=== PATIENT | male | born 1945 | race Hispanic/Latino ===

== ENCOUNTER 2017-05-02 12:50 | Inpatient (IN) | payer MEDICARE, MEDICAID ==
[2017-05-02 14:18] LABS: BASO # 0.02 K/mm3 (0.0-2.0); BASO % 0.4 % (0.0-3.0); EOS # 0.1 (0.0-0.7); EOS % 1.8 % (1.5-5.0); GRAN # 3.24 (1.4-6.5); GRAN % 72.8 % (50.0-68.0); HEMOGLOBIN 9.6 g/dL (14.0-18.0); LYMPH # 0.7 (1.2-3.4); LYMPH % 15.1 % (22.0-35.0); MEAN CELL VOLUME 95.6 fl (80.0-105.0); MEAN CORPUSCULAR HEMOGLOBIN 29.9 pg (25.0-35.0); MEAN CORPUSCULAR HGB CONC 31.3 g/dl (31.0-37.0); MONO # 0.4 (0.1-0.6); MONO % 9.9 % (1.0-6.0); PROTHROMBIN TIME 13.4 SECONDS (9.4-12.5); RBC 3.21 10^6/uL (3.5-6.1); RED CELL DISTRIBUTION WIDTH 14.9 % (11.5-14.5); WHITE BLOOD COUNT 4.5 10^3/ul (4.5-11.0)
[2017-05-02 14:19] LABS: INR 1.16 (0.93-1.08)
[2017-05-02 14:23] LABS: ALB/GLOB RATIO 1.4 (1.1-1.8); ALBUMIN 3.7 g/dL (3.0-4.8); CALCIUM 9.1 mg/dL (8.4-10.5)
--- NOTE | 2017-05-02 14:32 | ED PDOC ---
Arrival/HPI - General Chief Complaint: Abdominal Pain Time Seen by Provider: 05/02/17 13:26 Historian: Patient - History of Present Illness Narrative History of Present Illness (Text): 05/02/17 14:29 Patient is a 71 yo male with past medical history of ESRD on dialysis M, W, F, presents to Emergency Department complaining of left lower quadrant abdominal pain since awakening this AM. Patient states he at [place] last night and has had prior history of diverticulitis. States these symptoms similar to past episodes. He denies any vomiting or diarrhea. He denies any cough or chest pain or shortness of breath. Denies any bloody urine or stool. Denies any pain radiating to back. Denies dysuria or frequency. Past Medical History - Infectious Disease Hx of Infectious Diseases: None - Renal Hx Dialysis: Yes ([facility]) - Musculoskeletal/Rheumatological Other/Comment: L leg blood clot. riley filter - Gastrointestinal Hx Diverticulitis: Yes - Psychiatric Hx Substance Use: No - Surgical History Hx Cholecystectomy: Yes Other/Comment: prostate cancer. riley filter. L av shunt - Anesthesia Hx Anesthesia Reactions: No Hx Malignant Hyperthermia: No Family/Social History Family/Social History: Unknown Family HX Smoking Status: Never Smoked Hx Alcohol Use: No Hx Substance Use: No Allergies/Home Meds Allergies/Adverse Reactions: Allergies No Known Allergies Allergy (Verified 05/02/17 13:19) Home Medications: Home Meds Medication Instructions Recorded Confirmed ALPRAZolam [Xanax] 0.25 mg PO TID PRN 05/02/17 05/02/17 Atorvastatin [Lipitor] 10 mg PO DAILY 05/02/17 05/02/17 Review of Systems - Review of Systems Constitutional: Fatigue Eyes: absent: Vision Changes Respiratory: absent: SOB Cardiovascular: absent: Chest Pain Gastrointestinal: Abdominal Pain, Appetite Changes. absent: Diarrhea, Vomiting , Hematochezia, Hematemesis Genitourinary Male: absent: Dysuria, Frequency, Hematuria Musculoskeletal: absent: Back Pain Skin: absent: Rash Neurological: absent: Headache, Dizziness Endocrine: absent: Polyuria Physical Exam Vital Signs Reviewed: Yes Vital Signs Temp Pulse Resp BP Pulse Ox 05/02/17 17:37 87 18 145/78 97 05/02/17 12:52 99.2 F 97 H 18 121/66 96 Temperature: Afebrile Appearance: Positive for: Uncomfortable Pain Distress: Mild Mental Status: Positive for: Alert and Oriented X 3 - Systems Exam Head: Present: Atraumatic Pupils: Present: PERRL Extroacular Muscles: Present: EOMI Mouth: Present: Moist Mucous Membranes Pharnyx: No: ERYTHEMA Nose (Internal): Present: Normal Inspection Neck: Present: Normal Range of Motion. No: Meningeal Signs Respiratory/Chest: Present: Clear to Auscultation. No: Respiratory Distress Cardiovascular: Present: Regular Rate and Rhythm Abdomen: Present: Tenderness. No: Peritoneal Signs, Guarding, McBurney's Point Tender Rectal: No: Gross Blood Breast/Axillary: No: Erythema Back: No: CVA Tenderness Upper Extremity: No: Cyanosis Lower Extremity: No: Edema Neurological: Present: Motor Func Grossly Intact, Normal Sensory Function Skin: Present: Warm Psychiatric: Present: Alert, Normal Insight, Normal Concentration Medical Decision Making ED Course and Treatment: 05/02/17 15:44 Patient on exam with focal llq pain. CV stable. Afebrile. Patient with prior history of diverticulitis, ct ordered. PROCEDURE: CT Abdomen and Pelvis without intravenous contrast Dictator : Abby Wren MD Report Date : 05/02/2017 15:04:55 IMPRESSION: 1. Acute short segment colonic diverticulitis involving the distal descending colon. No perforation, abscess or drainable fluid collection. Follow-up CT scan after medical management is recommended to ensure complete resolution and exclude underlying mass. 2. Statement of prior granulomatous disease in the liver and spleen. 3. Small pericardial effusion. 05/02/17 19:06 CT findings reviewed with patient. He requests Dr. Thomason to be his PMD. Case d/w Dr. Guevara covering for Dr. Thomason, accepts admission to his service. IV antibiotics initiated. - Lab Interpretations Lab Results: 05/02/17 14:02 05/02/17 14:02 Lab Results 05/02/17 14:02: Sodium 138, Potassium 4.7, Chloride 97 L, Carbon Dioxide 29, Anion Gap 17, BUN 33 H, Creatinine 6.5 H, Est GFR ( Amer) 10, Est GFR ( Non-Af Amer) 8, Random Glucose 141 H, Calcium 9.1, Total Bilirubin 0.8, AST 12 L , ALT 28, Alkaline Phosphatase 76, Total Protein 6.5, Albumin 3.7, Globulin 2.7 , Albumin/Globulin Ratio 1.4 05/02/17 14:02: PT 13.4 H, INR 1.16 H, APTT 28.0 05/02/17 14:02: WBC 4.5, RBC 3.21 L, Hgb 9.6 L, Hct 30.7 L, MCV 95.6, MCH 29.9, MCHC 31.3, RDW 14.9 H, Plt Count 86 L, MPV 11.0, Gran % 72.8 H, Lymph % (Auto) 15.1 L, Ross % (Auto) 9.9 H, Eos % (Auto) 1.8, Baso % (Auto) 0.4, Gran # 3.24, Lymph # 0.7 L, Ross # 0.4, Eos # 0.1, Baso # 0.02 - RAD Interpretation Radiology Orders: 05/02/17 13:32 ABD & PELVIS W/O PO OR IV CONT [CT] Stat - EKG Interpretation EKG Interpretation (Text): 05/02/17 19:08 EKG at 13:48 normal sinus rhythm rate of [address] elevations Interpreted by ED Physician: Yes Type: 12 lead EKG - Medication Orders Current Medication Orders: Hydromorphone HCl (Dilaudid) 0.5 mg IVP Q4H PRN PRN Reason: Pain, moderate (4-7) Dextrose/Sodium Chloride (Dextrose 5%/0.45% Ns 1000 Ml) 1,000 mls @ 40 mls/hr IV .Q24H MARIS Metronidazole (Flagyl) 250 mg in 50 mls @ 100 mls/hr IV Q8 MARIS PRN Reason: Protocol Stop: 05/07/17 22:01 Ceftriaxone Sodium (Rocephin 1 Gram Ivpb) 1 gm in 100 mls @ 100 mls/hr IVPB 1500 MARIS PRN Reason: Protocol Pantoprazole Sodium (Protonix Inj) 40 mg IVP DAILY MARIS Discontinued Medications Ceftriaxone Sodium (Rocephin 1 Gram Ivpb) 1 gm in 100 mls @ 200 mls/hr IVPB ONCE STA PRN Reason: Protocol Stop: 05/02/17 15:39 Last Admin: 05/02/17 15:17 Dose: 200 mls/hr eMAR Start Stop Document 05/02/17 15:17 GMD (Rec: 05/02/17 15:17 [place] [id number] Intravenous Solution Start Date 05/02/17 Start Time 15:17 End Date 05/02/17 End time 15:47 Total Infusion Time 30 Metronidazole (Flagyl) 500 mg in 100 mls @ 100 mls/hr IVPB STAT STA PRN Reason: Protocol Stop: 05/02/17 16:10 Last Admin: 05/02/17 16:27 Dose: 100 mls/hr eMAR Start Stop Document 05/02/17 16:27 GMD (Rec: 05/02/17 16:27 GMD [id number] Intravenous Solution Start Date 05/02/17 Start Time 16:27 End Date 05/02/17 End time 17:27 Total Infusion Time 60 Disposition/Present on Arrival - Present on Arrival Any Indicators Present on Arrival: No History of DVT/PE: No History of Uncontrolled Diabetes: No Urinary Catheter: No History of Decub. Ulcer: No History Surgical Site Infection Following: None - Disposition Have Diagnosis and Disposition been Completed?: Yes Diagnosis: Diverticulitis, Renal failure, Anemia Disposition: HOSPITALIZED Disposition Time: 16:00 Patient Plan: Admission Patient Problems: Current Active Problems Problem Status Onset Anemia Acute Diverticulitis Acute Renal failure Acute Condition: FAIR
--- NOTE | 2017-05-02 15:06 | CT ---
PROCEDURE: CT Abdomen and Pelvis without intravenous contrast HISTORY: Left lower quadrant abdominal pain, hx of diverticulitis COMPARISON: None. TECHNIQUE: T CT scan of the abdomen and pelvis was performed without administration of intravenous contrast. Oral contrast was not administered. Coronal and sagittal reformatted images were obtained. Radiation dose: Total exam DLP = 773.29 mGy-cm. This CT exam was performed using one or more of the following dose reduction techniques: Automated exposure control, adjustment of the mA and/or kV according to patient size, and/or use of iterative reconstruction technique. FINDINGS: LOWER THORAX: There is dependent atelectasis in the lung bases. The heart is normal in size. There is a small pericardial effusion. LIVER: Normal in size. Punctate nonspecific calcifications in the right hepatic lobe. No intrahepatic biliary ductal dilatation. GALLBLADDER AND BILE DUCTS: Surgically absent. PANCREAS: Normal in size without calcifications or ductal dilatation. No gross lesion or ductal dilatation. SPLEEN: There is moderate splenomegaly and punctate calcifications in the spleen. The spleen measures 16 cm in craniocaudad dimension. ADRENALS: No discrete nodule. KIDNEYS AND URETERS: Mildly atrophic kidneys without hydronephrosis or nephrolithiasis. There are 2 simple cysts in the right kidney, the larger in the lower pole measures 1.6 cm. The small bowel loops are normal in caliber. VASCULATURE: No aortic aneurysm. BOWEL: There is extensive colonic diverticulosis. There is segmental moderate mural thickening in the distal descending colon and the left lower quadrant with significant surrounding inflammatory changes. There is no abscess or drainable fluid collection. APPENDIX: Normal appendix. PERITONEUM: No free fluid. No free air. LYMPH NODES: No enlarged lymph nodes. BLADDER: Grossly normal in appearance. REPRODUCTIVE: The prostate gland is normal in size. BONES: No acute fracture. Multilevel degenerative disc disease. Status post left hip replacement. OTHER FINDINGS: None. IMPRESSION: 1. Acute short segment colonic diverticulitis involving the distal descending colon. No perforation, abscess or drainable fluid collection. Follow-up CT scan after medical management is recommended to ensure complete resolution and exclude underlying mass. 2. Statement of prior granulomatous disease in the liver and spleen. 3. Small pericardial effusion.
[2017-05-02] MEDS ORDERED: cefTRIAXone 1 gm 1 GM/100 ML BAG IVPB STA (15:10)
[2017-05-02] MEDS ORDERED: metroNIDAZOLE IV 500 mg/100 ml 500 MG/100 ML BAG IVPB STA (15:11)
[2017-05-02] MEDS ORDERED: HYDROmorphone 0.5 mg/0.5 ml ISec IVP PRN (18:45)
[2017-05-02] MEDS: Dextrose 5%/0.45% NS 1,000 ML IV SCH (19:16)
[2017-05-02 20:53] VITALS: BMI 27.6
[2017-05-02] MEDS: metroNIDAZOLE IV 250mg/50 ml 250 MG/50 ML BAG IV SCH (21:11)
--- NOTE | 2017-05-03 04:50 | HP ---
HISTORY OF PRESENT ILLNESS: The patient is a 71-year-old, who came to the emergency room because of left lower quadrant pain, severe in nature, intermittent, that pain woke him up this morning, complaining of feeling nausea with decreased appetite, but no history of vomiting or diarrhea. No history of fever or chills. No chest pain. No shortness of breath. PAST MEDICAL HISTORY: Significant for, 1. End-stage renal disease, on hemodialysis. 2. History of diverticulosis. 3. Hyperlipidemia. ALLERGIES: HE IS NOT ALLERGIC TO ANY MEDICATIONS. MEDICATIONS AT HOME: He is on atorvastatin 5 mg daily, Xanax 0.25 t.i.d. p.r.n. SOCIAL HISTORY: Denies smoking, drinking alcohol use. REVIEW OF SYSTEMS: Significant for left lower quadrant pain. PHYSICAL EXAMINATION: GENERAL: On examination, he is awake, alert, oriented, and communicative. VITAL SIGNS: He is afebrile, temperature is 99.2, pulse 97, respirations 18, and blood pressure 121/66. LUNGS: Bilateral fair airflow. No rhonchi or crackles. HEART: S1 and S2 audible. ABDOMEN: Soft, nontender. He does have left lower quadrant discomfort. No rebound. No guarding. NEUROLOGICALLY: The patient is awake, alert, oriented, able to communicate. LABORATORY DATA: WBCs 4.5, hemoglobin 9.6, hematocrit 30.7, platelets of 86. PT 13.4, INR 1.16. Chemistry: Sodium 138, potassium 4.7, chloride 97, CO2 of 29, BUN 33, creatinine 6.5, blood sugar was 141. CT scan of the abdomen and pelvis done that shows acute short segment colonic diverticulitis involving distal descending colon. No perforation or abscess noted. Small pericardial effusion. ASSESSMENT: 1. Descending diverticulitis. 2. Hypertension. 3. End-stage renal disease, on hemodialysis. 4. Anxiety disorder. PLAN: We will start the patient on IV fluids and start on IV antibiotics. Analgesic as needed. We will start him on liquid diet, and he will be followed for hemodialysis by a photographic process worker of his choice. Arsh Guevara MD [facility] # [id number]
[2017-05-03] MEDS: metroNIDAZOLE IV 250mg/50 ml 250 MG/50 ML BAG IV SCH ×3 (05:26→22:48)
[2017-05-03] MEDS: cefTRIAXone 1 gm 1 GM/100 ML BAG IVPB SCH (15:35)
[2017-05-03] MEDS: Dextrose 5%/0.45% NS 1,000 ML IV SCH (18:56)
--- NOTE | 2017-05-03 19:35 | CARD ---
APPROVED REPORT EKG Measurement Heart [id number] <Conclusion> Normal sinus rhythm Normal ECG
--- NOTE | 2017-05-03 21:42 | PN ---
DATE: SUBJECTIVE: The patient is 71 years old, seen and examined, doing well. He states his left abdominal pain is much better, but still has discomfort in the left lower quadrant area. Denies any nausea and vomiting. No rectal bleeding. PHYSICAL EXAMINATION: GENERAL: On examination today, he is awake, alert and oriented, able to communicate. VITAL SIGNS: He is afebrile. Pulse 70, respirations 18, blood pressure 130/66. LUNGS: Bilateral good air flow. No rhonchi or crackles. HEART: S1, S2 audible. ABDOMEN: Soft, slight left lower quadrant palpable discomfort. NEUROLOGIC: He is awake, alert, oriented, communicative. Moves all extremities. Ambulatory. LABORATORY DATA: There are no new labs available today. ASSESSMENT: 1. Descending diverticulitis. 2. End-stage renal disease, on hemodialysis. 3. Chronic anemia. 4. Hyperlipidemia. PLAN: Currently, the patient is on low-dose IV fluid. He is getting IV antibiotics. He is on clear liquid diet, and he will be evaluated by GI and . . Arsh Guevara MD
[2017-05-04] MEDS: metroNIDAZOLE IV 250mg/50 ml 250 MG/50 ML BAG IV SCH ×3 (05:31→22:57)
[2017-05-04] MEDS ORDERED: Oxycodone/Acetaminophen 5/325 mg Tab PO PRN (09:06)
--- NOTE | 2017-05-04 09:28 | PN ---
DATE: 05/04/2017 SUBJECTIVE: The patient has no complaint of any chest pain. No shortness of breath. He says he is feeling better. His abdominal pain is improving. PHYSICAL EXAMINATION: VITAL SIGNS: Temperature is 97.9, pulse of 64, blood pressure is 144/76, respirations 20. GENERAL: The patient is lying in bed, flat, comfortable. HEENT: No oral lesion. Anicteric sclerae. Moist mucosa. NECK: No JVD, adenopathy, or thyromegaly. CARDIOVASCULAR: S1 and S2, regular. No murmurs, rubs, or gallops. LUNGS: Clear to auscultation bilaterally. No wheeze, rales, or rhonchi. ABDOMEN: Bowel sounds are positive, soft, nontender and nondistended. EXTREMITIES: No cyanosis, clubbing or edema. CHEST: He has a left IJ PermCath. He has a left arm AV fistula with mild thrill and bruit. LABORATORY DATA: White count of 4.5, hemoglobin 9.6. Creatinine is 6.5. Platelet count is 86. ASSESSMENT: 1. Diverticulitis. 2. End-stage renal disease, on hemodialysis. 3. Chronic anemia. 4. Dyslipidemia. 5. Left arm arteriovenous fistula. 6. Secondary hyperparathyroidism. PLAN: The patient is currently on Rocephin and Flagyl for antibiotics. The patient is on IV Dilaudid for pain. He is receiving aspirin. I will advance the patient's diet to a renal diet. He is going to be on dialysis today. I did speak to dialysis nurse. He is asking to transfer to [place] for his dialysis as he lives in [place] the [place] of [place]. He is currently going to [facility] for his dialysis treatment. He is currently independent. He does drive. He does have 2 children that are involved in his care. Wilmer Thomason MD
[2017-05-04 11:07] LABS: BASO # 0.02 K/mm3 (0.0-2.0); BASO % 0.6 % (0.0-3.0); EOS # 0.1 (0.0-0.7); EOS % 4.5 % (1.5-5.0); GRAN # 1.76 (1.4-6.5); GRAN % 56.8 % (50.0-68.0); HEMOGLOBIN 9.5 g/dL (14.0-18.0); LYMPH % 31.3 % (22.0-35.0); MEAN CELL VOLUME 93.4 fl (80.0-105.0); MEAN CORPUSCULAR HEMOGLOBIN 29.9 pg (25.0-35.0); MEAN PLATELET VOLUME 10.7 fl (7.0-11.0); MONO # 0.2 (0.1-0.6); MONO % 6.8 % (1.0-6.0); RBC 3.18 10^6/uL (3.5-6.1); RED CELL DISTRIBUTION WIDTH 14.5 % (11.5-14.5); WHITE BLOOD COUNT 3.1 10^3/ul (4.5-11.0)
[2017-05-04 11:20] LABS: ALB/GLOB RATIO 1.2 (1.1-1.8); ALBUMIN 3.5 g/dL (3.0-4.8); CALCIUM 9.1 mg/dL (8.4-10.5)
[2017-05-04] MEDS: cefTRIAXone 1 gm 1 GM/100 ML BAG IVPB SCH (15:29)
[2017-05-05] MEDS: metroNIDAZOLE IV 250mg/50 ml 250 MG/50 ML BAG IV SCH ×3 (06:02→23:56)
--- NOTE | 2017-05-05 15:35 | PN ---
DATE: SUBJECTIVE: The patient has no complaints of any chest pain. No shortness of breath. He still complains of left lower quadrant pain at times. He states it hurts mostly when he presses on his abdomen. He states that he is feeling better than when he first came into the hospital. PHYSICAL EXAMINATION: VITAL SIGNS: Temperature is 98.5, pulse of 78, blood pressure is 133/78, and respirations are 18. GENERAL: The patient is lying in bed, flat, comfortable. HEENT: No oral lesion. Anicteric sclerae. Moist mucosa. NECK: No JVD, adenopathy, or thyromegaly. CARDIOVASCULAR: S1 and S2, regular. No murmurs, rubs, or gallops. LUNGS: Clear to auscultation bilaterally. No wheeze, rales, or rhonchi. ABDOMEN: Bowel sounds are positive, soft, nontender and nondistended. EXTREMITIES: No cyanosis, clubbing or edema. LABORATORY DATA: White count of 3.1 and hemoglobin of 9.5. Left arm positive for AVF. ASSESSMENT: 1. Diverticulitis. 2. End-stage renal disease, on hemodialysis. 3. Chronic anemia secondary to kidney disease. 4. Dyslipidemia. 5. Left arteriovenous fistula. 6. Secondary hyperparathyroidism. PLAN: The patient is currently on Flagyl and Rocephin for antibiotics. These will be continued. The patient is on sevelamer with meal for his secondary hyperparathyroidism. The patient is on aspirin. He is on a liquid diet, I will change back renal diet by Dr. Avila because of the abdominal pain. I appreciate his input from GI. He is also going to repeat blood work done. He had dialysis yesterday with more issues. Wilmer Thomason MD
[2017-05-05] MEDS: cefTRIAXone 1 gm 1 GM/100 ML BAG IVPB SCH (15:59)
--- NOTE | 2017-05-05 21:01 | CON ---
DATE: 05/05/2017 GASTROENTEROLOGY CONSULTATION REQUESTING PHYSICIAN: Dr. Ramirez. REASON FOR CONSULTATION: I have been asked to see this 71-year-old male with history of end-stage renal disease who comes to the hospital with 2 days of left-sided abdominal pain. CT scan of the abdomen and pelvis revealed mural thickening with pericolonic inflammation around the distal descending colon consistent with diverticulitis. There is no fluid collection or abscess. Patient states that he has had two prior episodes of diverticulitis, last episode being approximately 1 year ago. PAST MEDICAL HISTORY: Notable for end-stage renal disease, on hemodialysis; diverticulitis; hyperlipidemia. PAST SURGICAL HISTORY: Notable for cholecystectomy. SOCIAL HISTORY: Denies cigarette smoking or alcohol use. FAMILY HISTORY: Noncontributory. REVIEW OF SYSTEMS: The 14-point review of systems is notable for left lower quadrant abdominal pain. MEDICATIONS: At home include atorvastatin 5 mg once a day, Xanax 0.25 mg three times a day as needed. PHYSICAL EXAMINATION: GENERAL: A well-developed male, lying in bed, in no acute distress. VITAL SIGNS: Reveal temperature of 98.5, blood pressure of 133/78, heart rate 78. HEENT: Reveal sclerae to be white. Conjunctivae pink. NECK: Supple. CHEST: Reveal lungs to be clear. HEART: Exam reveals regular rate and rhythm. ABDOMEN: Soft. There is [id number] left mid abdominal tenderness. No rebound, no guarding. EXTREMITIES: Show no edema. He has an AV shunt in his left arm. LABORATORY DATA: Reveal white blood cell count 3.1, hemoglobin 9.5. Chemistries reveal BUN 42, creatinine 8.9. AST 13; ALT, alk phos, total bilirubin are all normal. IMPRESSION: A 71-year-old male with 2 days of left mid abdominal pain with CT scan of the abdomen and pelvis showing diverticulitis. This is his third attack, last one being approximately 1 year ago. He still has some tenderness on physical exam. RECOMMENDATIONS: 1. Continue IV Rocephin and Flagyl. 2. We will downgrade his diet to clear liquid diet. 3. Patient will need an elective colonoscopy in approximately 8 weeks after his diverticulitis cools down. His last colonoscopy was over 10 years ago. Fred Avila MD [facility] # [id number]
[2017-05-06] MEDS: metroNIDAZOLE IV 250mg/50 ml 250 MG/50 ML BAG IV SCH (07:04)
[2017-05-06] MEDS ORDERED: Barium Sulfate Susp 2.1% w/v, 2.0% w/w 450 mL Bottle PO ONE (08:23)
--- NOTE | 2017-05-06 09:30 | PN ---
DATE: 05/06/2017 SUBJECTIVE: The patient has no complaints of any chest pain. No shortness of breath,. No headaches. He says he continues to have left lower quadrant pain when he press up against his belly. He is swallowing liquid diet. PHYSICAL EXAMINATION VITAL SIGNS: Temperature is 97.7, pulse is 78, blood pressure is 135/80, and respirations are 20. GENERAL: The patient is lying in bed, flat, comfortable. HEENT: No oral lesion. Anicteric sclerae. Moist mucosa. NECK: No JVD, adenopathy, or thyromegaly. CARDIOVASCULAR: S1 and S2, regular. No murmurs, rubs, or gallops. LUNGS: Clear to auscultation bilaterally. No wheeze, rales, or rhonchi. ABDOMEN: Bowel sounds are positive, soft, nontender and nondistended. EXTREMITIES: No cyanosis, clubbing or edema. LABORATORY DATA: White count of 3.1, hemoglobin is 9.5 and creatinine is 8.9. ASSESSMENT: 1. Diverticulitis. 2. End-stage renal disease, on hemodialysis. 3. Chronic anemia secondary to chronic kidney disease. 4. Dyslipidemia. 5. Left arteriovenous fistula. 6. Secondary hyperparathyroidism. PLAN: The patient is currently comfortable. He is on Rocephin for antibiotics. He is continuing on Flagyl. The patient is on aspirin daily and he is on Protonix. He is on Renagel for his secondary to hyperparathyroidism. He has been on liquid diet. The patient's white count is normal. Wilmer Thomason MD
[2017-05-06 11:22] LABS: BASO # 0.02 K/mm3 (0.0-2.0); BASO % 0.6 % (0.0-3.0); EOS # 0.2 (0.0-0.7); EOS % 4.4 % (1.5-5.0); GRAN # 1.99 (1.4-6.5); GRAN % 58.2 % (50.0-68.0); HEMOGLOBIN 9.8 g/dL (14.0-18.0); LYMPH # 0.9 (1.2-3.4); LYMPH % 26.9 % (22.0-35.0); MEAN CORPUSCULAR HEMOGLOBIN 29.7 pg (25.0-35.0); MEAN CORPUSCULAR HGB CONC 31.9 g/dl (31.0-37.0); MEAN PLATELET VOLUME 10.3 fl (7.0-11.0); MONO # 0.3 (0.1-0.6); MONO % 9.9 % (1.0-6.0); RBC 3.3 10^6/uL (3.5-6.1); RED CELL DISTRIBUTION WIDTH 14.3 % (11.5-14.5); WHITE BLOOD COUNT 3.4 10^3/ul (4.5-11.0)
[2017-05-06 11:35] LABS: ALB/GLOB RATIO 1.4 (1.1-1.8); ALBUMIN 3.9 g/dL (3.0-4.8); CALCIUM 9.3 mg/dL (8.4-10.5); MAGNESIUM 1.9 mg/dL (1.7-2.2)
[2017-05-06] MEDS: metroNIDAZOLE IV 500 mg/100 ml 500 MG/100 ML BAG IVPB SCH ×2 (15:44→21:08)
[2017-05-06] MEDS: cefTRIAXone 1 gm 1 GM/100 ML BAG IVPB SCH (16:34)
--- NOTE | 2017-05-06 17:02 | PN ---
DATE: 05/06/2017 SUBJECTIVE: The patient was seen in hemodialysis. He states that he feels better. His abdominal pain is less. He denies any nausea, vomiting, fevers, or chills. OBJECTIVE: VITAL SIGNS: Reveal temperature of 97.6, blood pressure 146/76, and heart rate 91. HEENT: Reveal sclerae to be white. Conjunctivae pink. NECK: Supple. CHEST: Reveals lungs to be clear. HEART: Reveals regular rate and rhythm. ABDOMEN: Soft. There is mild left lower quadrant tenderness, this is less than yesterday. EXTREMITIES: Show no edema. He has an AV shunt in his left arm. LABORATORY DATA: Reveal BUN 32, creatinine 8.1. Hemoglobin 9.8, hematocrit 30.7, white blood cell count 3.4, and platelet count 99,000. MEDICATIONS: Include Ecotrin 81 mg once a day, Flagyl 500 mg IV q. 8 hours, Percocet 5/325 q. 4 hours as needed for pain, Protonix 40 mg IV once a day, Renagel 800 mg p.o. before meals supper, and Rocephin 1 g IV daily. IMPRESSION: 1. Acute diverticulitis involving the descending colon. The patient has had two prior attacks with the last one being one year ago. There is no evidence of abscess on CAT scan. Clinically, the patient is improving. 2. End-stage renal disease, on hemodialysis. 3. Chronic anemia. RECOMMENDATIONS 1. Continue IV antibiotics. 2. I will advance the patient to a full liquid diet. Fred Avila MD
--- NOTE | 2017-05-06 19:36 | CT ---
EXAM: CT Abdomen and Pelvis Without Intravenous Contrast EXAM DATE/TIME: 05/06/2017 8:10 AM CLINICAL HISTORY: The patient age is 71 years old and is male; Pain; Abdominal pain; Localized; Right lower quadrant (rlq); Prior surgery; Surgery date: 6+ months; Surgery type: HX: Gb, prostate ca, diverticulitis; Additional info: Rlq pain R/O abscess Facility exam id and description: Ct abdpels abd pelvis po contrast only TECHNIQUE: Axial computed tomography images of the abdomen and pelvis without intravenous contrast. All CT scans at this facility use one or more dose reduction techniques, viz.: automated exposure control; ma/kV adjustment per patient size (including targeted exams where dose is matched to indication; i.e. head); or iterative reconstruction technique. Coronal and sagittal reformatted images were created and reviewed. COMPARISON: CT - ABD PELVIS W/O PO OR IV CONT 2017-05-02 14:08 FINDINGS: Lower thorax: There is a small pericardial effusion. Mild increased interstitial markings and atelectatic changes are identified at the lung bases, left side greater than right. ABDOMEN: Liver: A few small calcifications are visualized within the liver. No mass. Gallbladder and bile ducts: Cholecystectomy. Pancreas: Normal contour. No ductal dilation. Spleen: Multiple calcifications are identified within the spleen, consistent with granulomatous disease. The spleen measures 15.5 cm in length, consistent with splenomegaly. Adrenals: No mass. Kidneys and ureters: There is mild thinning of the bilateral renal cortices, consistent with atrophy. At the midpole the right kidney, there is a stable mildly complex hypodense probable cyst with a tiny peripheral calcification. This complex cyst measures 1.9 cm in diameter. An additional subcentimeter iso-to hypodense complex cyst is identified at the midpole of the right kidney. There is no hydronephrosis bilaterally. Stomach and bowel: Colonic diverticula are identified. Pericolonic stranding is identified adjacent to the distal descending colon, consistent with diverticulitis. This has mildly improved. Appendix: No findings to suggest acute appendicitis. PELVIS: Bladder: No stones. Reproductive: The prostate is mildly enlarged. ABDOMEN and PELVIS: Intraperitoneal space: There is mild stranding of the central abdominal mesentery, without progression. This is suggestive of mesenteric panniculitis. Bones/joints: There is streaking artifact associated with a left hip prosthesis. Hypertrophic degenerative changes are noted within the spine, with hyperostosis. Soft tissues: There is mild eventration of the ventral abdominal wall. Vasculature: There is mild displacement of intimal calcification within the infrarenal abdominal aorta, which is a chronic finding compared to the prior study. There is atherosclerotic calcification of the abdominal aorta. No abdominal aortic aneurysm. Lymph nodes: No enlarged lymph nodes. IMPRESSION: 1. Colonic diverticula are identified. Pericolonic stranding is identified adjacent to the distal descending colon, consistent with diverticulitis. This has mildly improved. 2. Mildly complex stable right renal cysts. Bilateral renal atrophy. 3. There is mild displacement of intimal calcification within the infrarenal abdominal aorta, which is a chronic finding compared to the prior study. 4. The prostate is mildly enlarged. 5. Splenomegaly. 6. There is mild stranding of the central abdominal mesentery, without progression. This is suggestive of mesenteric panniculitis. 7. There is a small pericardial effusion. 8. Additional CT findings described above.
[2017-05-07] MEDS: metroNIDAZOLE IV 500 mg/100 ml 500 MG/100 ML BAG IVPB SCH ×2 (05:03→14:16)
[2017-05-07 09:35] VITALS: BP 128/73; PULSE 81; RESP 18; TEMP 98.5; O2SAT 97
--- NOTE | 2017-05-07 17:37 | PN ---
DATE: 05/07/2017 SUBJECTIVE: The patient is lying in bed. He states that his abdominal pain is less. He tolerated solid foods this morning. He denies any nausea, vomiting. MEDICATIONS: Include aspirin, Flagyl 500 mg IV q.8 hours, Protonix 40 mg once a day, Renagel 800 mg once a day, and Rocephin 1 g IV daily. OBJECTIVE: VITAL SIGNS: Reveal temperature of 98.5, blood pressure 128/73, heart rate is 81. HEENT: Reveal sclerae to be white. Conjunctivae pink. NECK: Supple. CHEST/LUNGS: Clear. HEART: Reveals regular rate and rhythm. ABDOMEN: Soft. There is mild left mid abdominal tenderness. No rebound. No guarding. EXTREMITIES: Show no edema. He has an AV shunt in his left arm. LABORATORY DATA: No new laboratory data are available. Repeat CT scan of the abdomen and pelvis performed yesterday shows improving distal descending colon diverticulitis, no abscess, no fluid collection. IMPRESSION: 1. Diverticulitis involving the descending colon, clinically improving and also improvement radiographically. 2. End-stage renal disease, on hemodialysis. 3. Chronic anemia. RECOMMENDATIONS: 1. Patient is stable from GI. I have asked the patient to embark on a low residue diet. 2. Would continue p.o. Cipro 500 mg twice a day and Flagyl 500 mg three times a day for 14 days. 3. Patient will follow up with me for an elective outpatient colonoscopy once his diverticulitis resolves. Fred Avila MD
--- NOTE | 2017-05-08 04:36 | DS ---
HISTORY OF PRESENT ILLNESS: This is a 71-year-old male who has come in to the hospital because of abdominal pain. He was found to have acute diverticulitis. The patient's repeat CAT scan did not show any abscess or worsening of his diverticulitis. He says he is feeling better. His pain is better controlled. He is able to tolerate his diet. He is discharged. He is going to continue to follow up in the Dialysis Unit here at [place]. No complaint of any headaches or dizziness. No nausea. No vomiting. PHYSICAL EXAMINATION: VITAL SIGNS: Temperature is 97.7, pulse of 89, blood pressure 150/78, and respirations 20. GENERAL: The patient is lying in bed, flat, comfortable. HEENT: No oral lesion. Anicteric sclerae. Moist mucosa. NECK: No JVD, adenopathy, or thyromegaly. CARDIOVASCULAR: S1 and S2, regular. No murmurs, rubs, or gallops. LUNGS: Clear to auscultation bilaterally. No wheeze, rales, or rhonchi. ABDOMEN: Bowel sounds are positive, soft, nontender and nondistended. EXTREMITIES: No cyanosis, clubbing or edema. ASSESSMENT: 1. Diverticulitis, resolved. 2. End-stage renal disease on hemodialysis. 3. Left arteriovenous fistula. 4. Dyslipidemia. 5. Secondary hyperparathyroidism. 6. Chronic anemia secondary to chronic kidney disease and the patient is going to continue his Renvela. He was given Cipro and Flagyl for his antibiotics. He is tolerating a regular diet. He was seen by Dr. Avila, and the patient was advised to follow up with Dr. Avila. CONDITION: Stable. ACTIVITIES: Increase as tolerated. Wilmer Thomason MD
[2017-05-08] MEDS ORDERED: Pantoprazole 40 mg EC Tab PO SCH (07:30)
== END 2017-05-07 15:39 | disposition home or self-care (01) | DRG 391 ==
LOC: ED 12:50 → ERH 16:38 → 3RSO 17:51
PROVIDERS: ADMIT Internal Medicine Nephrology; ATTEND Internal Medicine Nephrology
DX: K57.32 Diverticulitis of large intestine without perforation or abscess without bleeding (principal); N18.6 End stage renal disease; I12.0 Hypertensive chronic kidney disease with stage 5 chronic kidney disease or end stage renal disease; D63.1 Anemia in chronic kidney disease; N25.81 Secondary hyperparathyroidism of renal origin; I31.3 Pericardial effusion (noninflammatory); Z99.2 Dependence on renal dialysis; E78.5 Hyperlipidemia, unspecified; F41.9 Anxiety disorder, unspecified; Z85.46 Personal history of malignant neoplasm of prostate; Z90.49 Acquired absence of other specified parts of digestive tract

== ENCOUNTER 2017-05-15 17:51 | Inpatient (IN) | payer MEDICARE, MEDICAID ==
[2017-05-15 18:05] VITALS: BMI 28.0
--- NOTE | 2017-05-15 18:08 | ED PDOC ---
Arrival/HPI - General Chief Complaint: Med Refill Time Seen by Provider: 05/15/17 17:52 Historian: Patient - History of Present Illness Narrative History of Present Illness (Text): 05/15/17 18:08 A 71 year old male, whose past medical history includes ESRD (on dialysis), presents to the emergency department from dialysis for evaluation of sudden onset of shakes and chills. Patient states he does make urine, but reports difficulty urinating today. Patient also reports he was recently admitted and discharged last week for treatment of acute diverticulitis, still taking Cipro and Flagyl. Patient denies any cough, shortness of breath, headache, abdominal pain, nausea, vomiting or any other complaints at this time. Symptom Onset: Sudden Symptom Course: Unchanged Activities at Onset: Rest Associated Symptoms (Text): none Past Medical History - Provider Review Nursing Documentation Reviewed: Yes - Infectious Disease Hx of Infectious Diseases: None - Cardiac Hx Cardiac Disorders: Yes Hx Hypertension: Yes - Pulmonary Hx Respiratory Disorders: No - Neurological Hx Neurological Disorder: No - HEENT Hx HEENT Disorder: No - Renal Hx Renal Disorder: Yes Hx Dialysis: Yes (MWF) Hx Renal Failure: Yes - Endocrine/Metabolic Hx Endocrine Disorders: No - Hematological/Oncological Hx Cancer: Yes (prostate) Hx Shingles: Yes - Integumentary Hx Dermatological Disorder: No - Musculoskeletal/Rheumatological Hx Musculoskeletal Disorders: No Hx Falls: No - Gastrointestinal Hx Gastrointestinal Disorders: Yes Hx Diverticulitis: Yes - Genitourinary/Gynecological Hx Prostate Problems: Yes (prostate CA) - Psychiatric Hx Psychophysiologic Disorder: Yes Hx Anxiety: Yes Hx Substance Use: No - Surgical History Hx Cholecystectomy: Yes - Anesthesia Hx Anesthesia Reactions: No Hx Malignant Hyperthermia: No Family/Social History - Physician Review Nursing Documentation Reviewed: Yes Family/Social History: No Known Family HX Smoking Status: Never Smoked Hx Alcohol Use: No Hx Substance Use: No Allergies/Home Meds Allergies/Adverse Reactions: Allergies No Known Allergies Allergy (Verified 05/15/17 18:02) Home Medications: Home Meds Medication Instructions Recorded Confirmed ALPRAZolam [Xanax] 0.25 mg PO TID PRN 05/15/17 05/15/17 Atorvastatin [Lipitor] 10 mg PO DAILY 05/15/17 05/15/17 Review of Systems - Review of Systems Constitutional: Fatigue, Other (shakes and chills) Respiratory: absent: SOB, Cough Gastrointestinal: Nausea. absent: Abdominal Pain, Constipation, Diarrhea, Vomiting Genitourinary Male: Urinary Output Changes Musculoskeletal: absent: Back Pain, Neck Pain Skin: absent: Rash Neurological: absent: Headache Endocrine: absent: Polyuria Physical Exam - Physical Exam Narrative Physical Exam (Text): 05/15/17 18:06 Head: Atraumatic. Normocephalic. Eyes: PERRL. EOMI. Conjunctivae are not pale. ENT: Mucous membranes are moist and intact. Oropharynx is clear and symmetric. Neck: Supple. Full ROM. No JVD. No lymphadenopathy. Cardiovascular: Tachycardic, no pathologic murmurs. Pulmonary/Chest: No evidence of respiratory distress. Clear to auscultation bilaterally. No wheezing, rales or rhonchi. Dialysis access site is nontender with no surrounding erythema or edema. Abdominal: Soft and non-distended. There is no tenderness. No rebound, guarding, or rigidity. No organomegaly. Good bowel sounds. Back: No CVA tenderness. No midline tenderness. Rectal: no gross bleeding Extremities: No edema. No cyanosis. No clubbing. Full range of motion in all extremities. No calf tenderness. Skin: Skin is warm and dry. No petechiae. No purpura. Neurological: Alert, awake, and oriented to person, place, time, and situation. Normal speech. No meningeal signs. Motor and sensory exam intact. Psychiatric: Good eye contact. Denies depression. Very anxious. Vital Signs Reviewed: Yes Vital Signs Temp Pulse Resp BP Pulse Ox 05/15/17 22:59 103.3 F H 05/15/17 22:55 103.2 F H 125 H 18 132/68 99 05/15/17 21:00 126 H 18 137/73 99 05/15/17 18:57 99.4 F 110 H 18 135/74 98 05/15/17 17:54 98.2 F 117 H 18 138/80 98 Temperature: Afebrile Blood Pressure: Normal Pulse: Tachycardic Respiratory Rate: Normal Appearance: Positive for: Non-Toxic, Comfortable, Ill-Appearing Pain Distress: Mild Mental Status: Positive for: Alert and Oriented X 3 Medical Decision Making ED Course and Treatment: 05/15/17 18:05 Impression: A 71 year old male with shakes and chills. Differential Diagnosis included but are not limited to: sepsis vs. UTI vs. line infection vs. diverticulitis Plan: -- EKG -- chest xray -- labs -- Tylenol, Vancomycin -- Reassess and disposition Prior Visits: Notes and results from previous visits were reviewed. Patient was last seen in the emergency department on 05/02/17 for evaluation of left lower quadrant abdominal pain. Progress Notes: Patient on my initial evaluation is complaining of feeling shaky and cold. He DENIES ANY CHEST PAIN OR ABDOMINAL PAIN WITH MULTIPLE SERIAL EXAMS IN ED. I reviewed past admission which was for diverticulitis and reviewed most recent abdominal CT. He denies ANY abdominal pain. He denies any diarrhea. He is currently taking Cipro and Flagyl. 05/15/17 18:55 chest xray: Creator : oRberto Montague MD IMPRESSION: No active disease. Patient on exam with no abdominal pain. Reports feeling some nausea but abdomen soft and nondistended. His dialysis access site left chest/neck has been present since June 2016 and is clean and intact. IV vancomycin ordered for shakes/chills. Rectal temp is unremarkable. Lactate MILDLY elevated. He is tachycardic but states he feels very anxious about feeling sick, states he typically takes Xanax for anxiety and states he does have prior history of panic attacks. I feel that tachycardia is likely related to anxiety as patient admits feeling very nervous and claustrophic and currently has no fever or elevated WBC. Will continue serial exams and recommend admission for treatment of possible UTI , r/o sepsis, serial abdominal exams. 05/15/17 20:39 05/15/17 21:14 Patient states he feels "much better' after Ativan. Reports no longer feeling shaky. Nausea resolved. He continues to deny any chest pain or shortness of breath. No calf pain or swelling. EKG repeated and reveals sinus tachycardia rate of 129. As lactate elevated, tachcyardic, suspicion of infection given history of "chills", will call code sepsis. As patient with history of renal failure on dialysis will administer iv fluids with caution, currently not hypotensive. 05/15/17 21:19 Code sepsis called. 05/15/17 21:50 Patient resting. States he feels "completely comfortable". Heart rate 124. No hypoxia. No leg pain or calf pain. No pleuritic pain. No further nausea or vomiting. Denies any chest pain or shortness of breath. Abdomen is soft and nontender. UA suggestive of urinary tract infection. Will admit to telemetry to monitor symptoms and tachycardia. 05/15/17 22:12 Dr. Thomason updated with patient's status. 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 - Lab Interpretations Microbiology Results: Microbiology Results 05/15/17 20:06 Blood Blood Culture - Final Methicillin Resistant S Aureus 05/15/17 20:06 Blood Gram Stain - Final 05/15/17 20:06 Blood S.aureus & Coag-Neg Staph PNA FISH - Final 05/15/17 20:06 Blood Blood Culture - Final Methicillin Resistant S Aureus 05/15/17 20:06 Blood Gram Stain - Final 05/15/17 19:50 Urine Urine Culture - Final Gram Positive Cocci Lab Results: 05/15/17 19:10 05/15/17 19:10 Lab Results 05/15/17 20:06: PT 12.5, INR 1.09 H, APTT 27.3 05/15/17 20:06: pO2 19 L, VBG pH 7.50 H, VBG pCO2 37.0 L, VBG HCO3 28.9 H, VBG Total CO2 30.0 H, VBG O2 Sat (Calc) 36.2 L, VBG Base Excess 5.5 H, VBG Potassium 4.1, Glucose 134 H, Lactate 2.3 H, FiO2 21.0, Sodium 137.0, Chloride 100.0, Venous Blood Potassium 4.1 05/15/17 19:50: Urine Color Light yellow, Urine Appearance Clear, Urine pH 8.5, Ur Specific [place] 1.020, Urine Protein 100 H, Urine Glucose (UA) 250 H, Urine Ketones Negative, Urine Blood Trace-intact H, Urine Nitrate Negative, Urine Bilirubin Negative, Urine Urobilinogen 0.2, Ur Leukocyte Esterase Negative, Urine RBC 0 - 2, Urine WBC 0 - 2, Ur Epithelial Cells None, Amorphous Sediment Moderate, Urine Bacteria Large 05/15/17 19:10: Lactate Dehydrogenase 585, Total Creatine Kinase 56, Troponin I < 0.01 05/15/17 19:10: Sodium 141, Potassium 4.7, Chloride 97 L, Carbon Dioxide 24, Anion Gap 24 H, BUN 25 H, Creatinine 5.5 H, Est GFR ( Amer) 12, Est GFR ( Non-Af Amer) 10, Random Glucose 91, Calcium 9.7, Total Bilirubin 1.0, AST 20, ALT 21, Alkaline Phosphatase 99, Total Protein 8.1, Albumin 4.5, Globulin 3.6, Albumin/Globulin Ratio 1.3 05/15/17 19:10: Influenza Typ A,B (EIA) Negative for flu a/b 05/15/17 19:10: WBC 5.4 D, RBC 4.07, Hgb 12.2 L D, Hct 38.1 L, MCV 93.6, MCH 30.0, MCHC 32.0, RDW 14.1, Plt Count 81 L, MPV 11.0, Gran % 81.0 H, Lymph % ( Auto) 8.3 L, [place] % (Auto) 9.6 H, Eos % (Auto) 0.7 L, Baso % (Auto) 0.4, Gran # 4.36, Lymph # (Auto) 0.5 L, [place] # (Auto) 0.5, Eos # (Auto) 0.0, Baso # (Auto) 0.02 05/15/17 19:05: POC Glucose (mg/dL) 84 I have reviewed the lab results: Yes - RAD Interpretation Radiology Orders: 05/15/17 18:22 CHEST PORTABLE [RAD] Stat - EKG Interpretation EKG Interpretation (Text): 05/15/17 20:44 EKG at 18:42 sinus tachycardia rate of [address] elevations Interpreted by ED Physician: Yes Type: 12 lead EKG - Medication Orders Current Medication Orders: Acetaminophen (Tylenol 325mg Tab) 650 mg PO Q4H PRN PRN Reason: Fever >100.4 F Alprazolam (Xanax) 0.25 mg PO TID PRN; Protocol PRN Reason: Anxiety Stop: 05/23/17 00:34 Atorvastatin Calcium (Lipitor) 10 mg PO DAILY MARIS Last Admin: 05/21/17 09:31 Dose: 10 mg Famotidine (Pepcid) 40 mg PO HS MARIS Last Admin: 05/20/17 21:28 Dose: 40 mg Heparin Sodium (Porcine) (Heparin) 5,000 units SC Q12 MARIS PRN Reason: Protocol Last Admin: 05/21/17 09:31 Dose: Metronidazole (Flagyl) 500 mg PO Q8 MARIS Last Admin: 05/21/17 14:29 Dose: 500 mg Ondansetron HCl (Zofran Inj) 4 mg IVP Q4H PRN PRN Reason: Nausea/Vomiting Discontinued Medications Acetaminophen (Tylenol 325mg Tab) 650 mg PO ONCE STA Stop: 05/15/17 18:44 Last Admin: 05/15/17 22:59 Dose: Not Given Non-Admin Reason: Nausea Acetaminophen (Tylenol 650 Mg Supp) 650 mg RC STAT STA Stop: 05/15/17 22:56 Last Admin: 05/15/17 22:59 Dose: 650 mg MAR Pain/Vitals Document 05/15/17 22:59 JOL (Rec: 05/15/17 22:59 JOL [id number]) Pain Reassessment Is This A Pain ReAssessment? No Sleep Is patient sleeping during reassessment? No Presence of Pain Presence of Pain No Vitals Temperature (97.6 F-99.6 F) 103.3 F Temperature Source Rectal Re-Assess: MAR Pain/Vitals Document 05/15/17 23:59 STM (Rec: 05/16/17 00:37 STM [facility] [id number] Vitals Temperature (97.6 F-99.6 F) 99.8 F Temperature Source Oral Alprazolam (Xanax) 0.25 mg PO STAT STA Stop: 05/15/17 20:33 Last Admin: 05/15/17 20:49 Dose: Not Given Non-Admin Reason: Nausea Alprazolam (Xanax) 0.25 mg PO TID PRN; Protocol PRN Reason: Anxiety Stop: 05/23/17 00:34 Doxercalciferol (Hectorol) 4 mcg IVP ONCE ONE Stop: 05/18/17 11:57 Last Admin: 05/18/17 12:06 Dose: 4 mcg IVP Administration Document 05/18/17 12:06 MV (Rec: 05/18/17 12:06 MV [email or web address]) Charges for Administration # of IVP Administrations 1 Heparin Sodium (Porcine) (Heparin) 1,900 units ICA ONCE ONE Stop: 05/18/17 12:04 Last Admin: 05/18/17 12:59 Dose: 1,900 units Heparin Sodium (Porcine) (Heparin) 2,000 units ICV ONCE ONE Stop: 05/18/17 12:05 Last Admin: 05/18/17 12:59 Dose: 2,000 units Vancomycin HCl (Vancomycin 1gm) 1 gm in 250 mls @ 167 mls/hr IVPB STAT STA PRN Reason: Protocol Stop: 05/15/17 19:51 Last Admin: 05/15/17 20:10 Dose: 167 mls/hr eMAR Start Stop Document 05/15/17 20:10 JOL (Rec: 05/15/17 20:10 JOL [id number]) Intravenous Solution Start Date 05/15/17 Start Time 20:10 End Date 05/15/17 End time 21:40 Total Infusion Time 90 Ceftriaxone Sodium (Rocephin 1 Gram Ivpb) 1 gm in 100 mls @ 200 mls/hr IVPB ONCE STA PRN Reason: Protocol Stop: 05/15/17 21:47 Last Admin: 05/15/17 21:46 Dose: 200 mls/hr eMAR Start Stop Document 05/15/17 21:46 JOL (Rec: 05/15/17 21:47 JOL [id number]) Intravenous Solution Start Date 05/15/17 Start Time 21:47 End Date 05/15/17 End time 22:17 Total Infusion Time 30 Sodium Chloride (Sodium Chloride 0.9%) 500 mls @ 1,000 mls/hr IV .Q30M STA Stop: 05/15/17 22:20 Last Admin: 05/15/17 22:26 Dose: 1,000 mls/hr eMAR Start Stop Document 05/15/17 22:26 JOL (Rec: 05/15/17 22:27 JOL [id number]) Intravenous Solution Start Date 05/15/17 Start Time 22:26 End Date 05/15/17 End time 22:56 Total Infusion Time 30 Metronidazole (Flagyl) 500 mg in 100 mls @ 100 mls/hr IVPB Q8 MARIS PRN Reason: Protocol Last Admin: 05/19/17 05:41 Dose: 100 mls/hr eMAR Start Stop Document 05/19/17 05:41 MAD (Rec: 05/19/17 05:41 MAD [id number]) Intravenous Solution Start Date 05/19/17 Start Time 05:41 Ceftriaxone Sodium (Rocephin 1 Gram Ivpb) 1 gm in 100 mls @ 100 mls/hr IVPB DAILY MARIS PRN Reason: Protocol Stop: 05/19/17 12:01 Last Admin: 05/19/17 11:15 Dose: 100 mls/hr eMAR Start Stop Document 05/19/17 11:15 TAV (Rec: 05/19/17 11:15 TAV [id number]) Intravenous Solution Start Date 05/19/17 Start Time 11:15 End Date 05/19/17 End time 12:15 Total Infusion Time 60 Vancomycin HCl (Vancomycin 1gm) 1 gm in 250 mls @ 167 mls/hr IVPB ONCE ONE PRN Reason: Protocol Stop: 05/18/17 11:29 Last Admin: 05/18/17 12:06 Dose: 167 mls/hr eMAR Start Stop Document 05/18/17 12:06 MV (Rec: 05/18/17 12:06 MV [email or web address]) Intravenous Solution Start Date 05/18/17 Start Time 12:06 End Date 05/18/17 End time 13:06 Total Infusion Time 60 Vancomycin HCl (Vancomycin 1gm) 1 gm in 250 mls @ 167 mls/hr IVPB ONCE ONE PRN Reason: Protocol Stop: 05/20/17 11:29 Last Admin: 05/20/17 13:00 Dose: 167 mls/hr eMAR Start Stop Document 05/20/17 13:00 LLANRU (Rec: 05/20/17 14:50 LLANRU [email or web address]) Intravenous Solution Start Date 05/20/17 Start Time 13:00 End Date 05/20/17 End time 14:50 Total Infusion Time 110 Sodium Chloride (Sodium Chloride 0.9%) 1,000 mls @ 50 mls/hr IV .Q20H MARIS Stop: 05/21/17 15:00 Lidocaine/Epinephrine (Lidocaine 1%/Epinephrine 1:839187 30 Ml) 0 ml IJ ONCE ONE Stop: 05/20/17 16:44 Lorazepam (Ativan) 1 mg IVP ONCE ONE Stop: 05/15/17 20:48 Last Admin: 05/15/17 20:52 Dose: 1 mg IVP Administration Document 05/15/17 20:52 JOL (Rec: 05/15/17 20:52 JOL [id number]) Charges for Administration # of IVP Administrations 1 Ondansetron HCl (Zofran Inj) 4 mg IVP ONCE ONE Stop: 05/15/17 19:42 Last Admin: 05/15/17 19:40 Dose: 4 mg IVP Administration Document 05/15/17 19:40 BIMAL (Rec: 05/15/17 20:10 JOOdalys [id number]) Charges for Administration # of IVP Administrations 1 - Scribe Statement The provider has reviewed the documentation as recorded by the Roman Deluca Provider Scribe Attestation: All medical record entries made by the Roman were at my direction and personally dictated by me. I have reviewed the chart and agree that the record accurately reflects my personal performance of the history, physical exam, medical decision making, and the department course for this patient. I have also personally directed, reviewed, and agree with the discharge instructions and disposition. Disposition/Present on Arrival - Present on Arrival Any Indicators Present on Arrival: Yes History of DVT/PE: Yes History of Uncontrolled Diabetes: No Urinary Catheter: No History of Decub. Ulcer: No History Surgical Site Infection Following: None - Disposition Have Diagnosis and Disposition been Completed?: Yes Diagnosis: Chills (without fever), Tachycardia, UTI (urinary tract infection), Sepsis Disposition: HOSPITALIZED Disposition Time: 21:17 Patient Plan: Admission, Telemetry Patient Problems: Current Active Problems Problem Status Onset Chills (without fever) Acute Sepsis Acute Tachycardia Acute UTI (urinary tract infection) Acute Condition: FAIR
[2017-05-15] MEDS ORDERED: Vancomycin 1gm in NS 250ml 1 GM/250 ML BAG IVPB STA (18:22)
--- NOTE | 2017-05-15 18:52 | RAD ---
HISTORY: fever/chills COMPARISON: No prior. FINDINGS: LUNGS: No active pulmonary disease. PLEURA: No significant pleural effusion identified, no pneumothorax apparent. CARDIOVASCULAR: No radiographic findings to suggest acute or significant cardiovascular disease. Venous access catheter in satisfactory position. OSSEOUS STRUCTURES: No significant abnormalities. VISUALIZED UPPER ABDOMEN: Normal. OTHER FINDINGS: None. IMPRESSION: No active disease.
[2017-05-15 19:27] LABS: BASO # 0.02 K/mm3 (0.0-2.0); BASO % 0.4 % (0.0-3.0); EOS % 0.7 % (1.5-5.0); GRAN # 4.36 (1.4-6.5); HEMOGLOBIN 12.2 g/dL (14.0-18.0); LYMPH # 0.5 (1.2-3.4); LYMPH % 8.3 % (22.0-35.0); MEAN CELL VOLUME 93.6 fl (80.0-105.0); MONO # 0.5 (0.1-0.6); MONO % 9.6 % (1.0-6.0); RBC 4.07 10^6/uL (3.5-6.1); RED CELL DISTRIBUTION WIDTH 14.1 % (11.5-14.5); WHITE BLOOD COUNT 5.4 10^3/ul (4.5-11.0)
[2017-05-15 19:40] LABS: ALB/GLOB RATIO 1.3 (1.1-1.8); ALBUMIN 4.5 g/dL (3.0-4.8); CALCIUM 9.7 mg/dL (8.4-10.5)
[2017-05-15 20:12] LABS: VENOUS BLOOD GAS BASE EXCESS 5.5 mmol/L (0.0-2.0); VENOUS BLOOD GAS PO2 19 mm/Hg (30-55)
[2017-05-15 20:22] LABS: PH,URINE 8.5 (4.7-8.0); URINE BILIRUBIN NEGATIVE (NEGATIVE); URINE BLOOD TRACE-INTACT (NEGATIVE); URINE GLUCOSE (UA) 250 mg/dL (NEGATIVE); URINE LEUKOCYTE ESTERASE NEGATIVE Leu/uL (NEGATIVE); URINE NITRATE NEGATIVE (NEGATIVE); URINE PROTEIN 100 mg/dL (<30 mg/dL); URINE UROBILINOGEN 0.2 E.U./dL (<1 E.U./dL)
[2017-05-15 20:24] LABS: URINE APPEARANCE CLEAR (CLEAR); URINE COLOR LIGHT YELLOW (YELLOW)
[2017-05-15 20:30] LABS: INR 1.09 (0.93-1.08); PARTIAL THROMBOPLASTIN TIME 27.3 Seconds (25.1-36.5); PROTHROMBIN TIME 12.5 SECONDS (9.4-12.5)
[2017-05-15 21:02] LABS: URINE BACTERIA LARGE (NEG); URINE RBC 0 - 2 /hpf (0-2); URINE WBC 0 - 2 /hpf (0-6)
[2017-05-15 21:03] LABS: URINE AMORPHOUS SEDIMENT MODERATE
[2017-05-15] MEDS ORDERED: cefTRIAXone 1 gm 1 GM/100 ML BAG IVPB STA (21:18)
[2017-05-15] MEDS ORDERED: Sodium Chloride 0.9% 500 ML IV STA (21:51)
[2017-05-15 22:13] LABS: TROPONIN I < 0.01 ng/mL
--- NOTE | 2017-05-15 22:34 | CP.PCM.HP ---
History of Present Illness - History of Present Illness History of Present Illness: CC: chills and shakes Patient is a 71 y/o Male with PMHx of ESRD (on HD //), htn, diverticulosis/ diverticulitis, and anxiety sent from HD center due to sudden shakes and chills. Patient states this has been going on for over a week now. Patient was given Ativan ivp thus he's very somnolence and is poor historian. Admits to being treated for diverticulitis, and taking cipro and flagyl at home. States he was able to complete HD today. Admits to fever and chills. Denies cough. Admits to having multiple episodes of diverticulitis attacks in the past. Admits to voiding today, but states it was less than usual. Admits to having colonoscopy in the past, but don't remember the year, and the result. Patient was in the ED on 05/06/17 with abdominal pain and was diagnosed with diverticulitis on CT, sent home on cipro and flagyl, which patient is still taking. Nephrology: Dr Thomason PMHx: ESRD (on HD //), htn, diverticulosis/diverticulitis, and anxiety PSHx: Left sided HD cath, AV fistula, colonoscopy FMHx: states " they all have problems" Social: Denies history of tobacco, alcohol and illicit drug use. Allergy: NKDA Home meds: Xanax and Lipitor, need to confirm. Present on Admission - Present on Admission Any Indicators Present on Admission: No History of DVT/PE: No History of Uncontrolled Diabetes: No Urinary Catheter: No Decubitus Ulcer Present: No Review of Systems - Review of Systems All systems: reviewed and no additional remarkable complaints except Review of Systems: 12 point ROS were reviewed, all negative except as per HPI. Past Patient History - Infectious Disease Hx of Infectious Diseases: None - Tetanus Immunizations Tetanus Immunization: Unknown - Past Social History Smoking Status: Never Smoked Alcohol: None Drugs: Denies - CARDIAC Hx Cardiac Disorders: Yes Hx Hypertension: Yes - PULMONARY Hx Respiratory Disorders: No - NEUROLOGICAL Hx Neurological Disorder: No - HEENT Hx HEENT Problems: No - RENAL Hx Chronic Kidney Disease: Yes Hx Dialysis: Yes (MWF) Hx Renal Failure: Yes - ENDOCRINE/METABOLIC Hx Endocrine Disorders: No - HEMATOLOGICAL/ONCOLOGICAL Hx Cancer: Yes (prostate) Hx Shingles: Yes - INTEGUMENTARY Hx Dermatological Problems: No - MUSCULOSKELETAL/RHEUMATOLOGICAL Hx Musculoskeletal Disorders: No Hx Falls: No - GASTROINTESTINAL Hx Gastrointestinal Disorders: Yes Hx Diverticulitis: Yes - GENITOURINARY/GYNECOLOGICAL Hx Prostate Problems: Yes (prostate CA) - PSYCHIATRIC Hx Psychophysiologic Disorder: Yes Hx Anxiety: Yes Hx Substance Use: No - SURGICAL HISTORY Hx Cholecystectomy: Yes - ANESTHESIA Hx Anesthesia Reactions: No Hx Malignant Hyperthermia: No Meds Allergies/Adverse Reactions: Allergies Allergy/AdvReac Type Severity Reaction Status Date / Time No Known Allergies Allergy Verified 05/15/17 18:02 Physical Exam - Constitutional Appears: No Acute Distress, Unkempt, Older Than Stated Age, Chronically Ill - Head Exam Head Exam: ATRAUMATIC, NORMAL INSPECTION, NORMOCEPHALIC - Eye Exam Eye Exam: EOMI, Normal appearance, PERRL. absent: Scleral icterus Pupil Exam: NORMAL ACCOMODATION - ENT Exam ENT Exam: Mucous Membranes Moist - Neck Exam Neck exam: Positive for: Normal Inspection. Negative for: Tenderness - Respiratory Exam Respiratory Exam: Clear to Auscultation Bilateral, NORMAL BREATHING PATTERN. absent: Rales, Rhonchi, Wheezes, Respiratory Distress, Stridor - Cardiovascular Exam Cardiovascular Exam: REGULAR RHYTHM, RRR, +S1, +S2. absent: Bradycardia, Tachycardia, Diastolic murmur, Gallop, Irregular Rhythm, JVD, Rubs, Systolic Murmur - GI/Abdominal Exam GI & Abdominal Exam: Normal Bowel Sounds, Soft. absent: Diminished Bowel Sounds , Distended, Firm, Guarding, Hernia, Hyperactive Bowel Sounds, Hypoactive Bowel Sounds, Rebound, Rigid, Tenderness - Extremities Exam Extremities exam: Positive for: normal inspection. Negative for: pedal edema - Back Exam Back exam: NORMAL INSPECTION - Neurological Exam Neurological exam: Alert, Oriented x3 - Psychiatric Exam Psychiatric exam: Normal Affect, Normal Mood - Skin Skin Exam: Dry, Intact, Normal Color, Warm Results - Vital Signs Recent Vital Signs: Last Vital Signs Temp 99.2 F 05/15/17 20:10 Pulse 126 H 05/15/17 21:00 Resp 18 05/15/17 21:00 BP 137/73 05/15/17 21:00 Pulse Ox 99 05/15/17 21:00 - Labs Result Diagrams: 05/15/17 19:10 05/15/17 19:10 Assessment & Plan - Assessment and Plan (Free Text) Assessment: Patient is a 71 y/o with PMHx of ESRD (on HD M/W/F), htn, diverticulosis/ diverticulitis, and anxiety presented with shakes and chills and is being admitted with possible sepsis. Patient on presentation was noted to have 98.2, with sinus tachycardia on ekg. Lactic acid was 2.3, thus code sepsis was called. Rectal temp reveals temp of 103.2. Plan: 1) SIRS r/o sepsis with unclear etiology. Differentials include complicated diverticulitis r/o intra-abdominal abscess, bacteremia due to infected HD cath, versus UTI, less likely pneumonia. - no leukocytosis, lactic acid of 2.3, temp of 103.3, and sinus tachycardia - blood culture and urine cultures sent - Continue on Rocephin, vanco and flagyl - s/p 1 litter of NS, patient is hemodynamically stable, and ESRD with hemodyalisis, thus unable to give 30 ml/kg of fluid. - Will continue to monitor and give fluid boluses as needed. - ID is consulted - Consider repeat CT if temp persists on IV antibiotics - X-ray with no active disease - Tylenol prn for fever, and zofran prn for nausea/vomiting. - Abdominal pain resolved, consider surgery/Gi for possible diverticulitis if abdominal pain reoccurs/persists. 2) ESRD- s/p HD today, had [facility] M/W/F - Nephro is consulted to continue HD inpatient 3) Anxiety- continue with Xanax prn 4) Dyslipidemia- continue with Lipitor 5) HTN- patient is too somnolence to give the list of medications, contact pharmacy in the AM. 6) Chronic anemia- likely due to CKD - will monitor h/h for now. 7) DVT/GI prophylaxis: heparin sc and pepcid. Patient seen, examined and case discussed with Dr Valiente. - Date & Time Date: 05/16/17 Time: 23:35
[2017-05-15] MEDS: metroNIDAZOLE IV 500 mg/100 ml 500 MG/100 ML BAG IVPB SCH (23:27)
[2017-05-16 00:22] LABS: VENOUS BLOOD GAS BASE EXCESS 2.8 mmol/L (0.0-2.0); VENOUS BLOOD GAS PO2 48 mm/Hg (30-55); VENOUS BLOOD PH 7.44 (7.32-7.43)
--- NOTE | 2017-05-16 02:59 | PCM.SEPTIC ---
Sepsis Progress Note - Reassessment Type Date of Evaluation: 05/16/17 Time of Evaluation: 02:45 Reassessment Type: Non-invasive reassessment - Non Invasive Reassessment Were the most recent vital sign reviewed: Yes Vital Sign (Latest): Temp Pulse Resp BP Pulse Ox 99.8 F H 98 H 20 124/69 99 05/15/17 23:59 05/16/17 02:00 05/15/17 23:59 05/15/17 23:59 05/15/17 22:55 Cardiovascular: Yes: Regular Rate, Rhythm. No: Chest Non Tender, Edema, Gallop , JVD, Murmur, Bradycardia, Tachycardia, Ectopy, Friction Rub, Irregularly Irregular Respiratory: Yes: Normal Breath Sounds. No: Decreased Breath Sounds, Accessory Muscle Use, Crackles, Rales, Rhonchi, Stridor, Wheezing, Respiratory Distress, Plerual Rub Capillary Refill: Normal (Less than 2 sec) Pulses: Normal Radial, Normal Dorsalis Pedis, Normal Posterior Tibialis Skin: Normal Color, Warm, Dry - Invasive Reassessment (complete 2 of 4) Was a Central Venous Pressure Measurement obtained within 6 Hours after the presentation of septic shock: No Was a central venous oxygen measurement obtained within 6 hours after the presentation of septic shock: No Was a bedside cardiovascular ultrasound performed within 6 hours after the presentation of septic shock: No Was a passive leg raise performed or was a fluid challenge performed within 6 hrs of the initial fluid bolus: No Fluid Challenge performed: No
[2017-05-16] MEDS: metroNIDAZOLE IV 500 mg/100 ml 500 MG/100 ML BAG IVPB SCH ×3 (05:37→21:20)
[2017-05-16 06:42] LABS: BASO # 0.02 K/mm3 (0.0-2.0); BASO % 0.3 % (0.0-3.0); GRAN # 6.39 (1.4-6.5); GRAN % 83.1 % (50.0-68.0); HEMOGLOBIN 10.7 g/dL (14.0-18.0); LYMPH # 0.4 (1.2-3.4); LYMPH % 5.2 % (22.0-35.0); MEAN CELL VOLUME 94.2 fl (80.0-105.0); MEAN CORPUSCULAR HEMOGLOBIN 29.3 pg (25.0-35.0); MEAN CORPUSCULAR HGB CONC 31.1 g/dl (31.0-37.0); MEAN PLATELET VOLUME 10.7 fl (7.0-11.0); MONO # 0.9 (0.1-0.6); MONO % 11.4 % (1.0-6.0); RBC 3.65 10^6/uL (3.5-6.1); RED CELL DISTRIBUTION WIDTH 14.4 % (11.5-14.5); WHITE BLOOD COUNT 7.7 10^3/ul (4.5-11.0)
[2017-05-16 06:54] LABS: ALB/GLOB RATIO 1.4 (1.1-1.8); ALBUMIN 4.2 g/dL (3.0-4.8); CALCIUM 9.1 mg/dL (8.4-10.5)
[2017-05-16] MEDS: cefTRIAXone 1 gm 1 GM/100 ML BAG IVPB SCH (09:17)
[2017-05-16] MEDS ORDERED: Vancomycin 1gm in NS 250ml 1 GM/250 ML BAG IVPB SCH (10:00)
--- NOTE | 2017-05-16 15:50 | CP.PCM.PN ---
<Misbah Lockett - Last Filed: 05/16/17 15:45> Subjective - Date & Time of Evaluation Date of Evaluation: 05/16/17 Time of Evaluation: 15:45 - Subjective Subjective: Medicine Progress Note: Patient seen and assessed at bedside. Patient was noted to have a fever of 103 overnight, was given tylenol and is currently afebrile. Patient has no complaints at this time, including fever, chills, headache, chest pain, SOB, cough, abdominal pain, N/V/D/C, urinary symptoms or any numbness/tingling/ weakness of any extremity. Objective - Vital Signs/Intake and Output Vital Signs (last 24 hours): Temp Pulse Resp BP Pulse Ox 98.7 F 94 H 20 97/61 L 98 05/16/17 12:00 05/16/17 12:00 05/16/17 06:00 05/16/17 12:00 05/16/17 06:00 Intake and Output: 05/16/17 05/16/17 06:59 18:59 Intake Total 320 Balance 320 - Medications Medications: Current Medications Acetaminophen (Tylenol 325mg Tab) 650 mg PO Q4H PRN PRN Reason: Fever >100.4 F Alprazolam (Xanax) 0.25 mg PO TID PRN; Protocol PRN Reason: Anxiety Stop: 05/23/17 00:34 Atorvastatin Calcium (Lipitor) 10 mg PO DAILY [facility] Last Admin: 05/16/17 09:17 Dose: 10 mg Famotidine (Pepcid) 40 mg PO HS [facility] Heparin Sodium (Porcine) (Heparin) 5,000 units SC Q12 [facility] PRN Reason: Protocol Last Admin: 05/16/17 09:17 Dose: 5,000 units Metronidazole (Flagyl) 500 mg in 100 mls @ 100 mls/hr IVPB Q8 [facility] PRN Reason: Protocol Last Admin: 05/16/17 14:09 Dose: 100 mls/hr Ceftriaxone Sodium (Rocephin 1 Gram Ivpb) 1 gm in 100 mls @ 100 mls/hr IVPB DAILY [facility] PRN Reason: Protocol Last Admin: 05/16/17 09:17 Dose: 100 mls/hr Ondansetron HCl (Zofran Inj) 4 mg IVP Q4H PRN PRN Reason: Nausea/Vomiting - Labs Labs: 05/16/17 06:30 05/16/17 06:30 PT 12.5 SECONDS (9.4-12.5) 05/15/17 20:06 INR 1.09 (0.93-1.08) H 05/15/17 20:06 APTT 27.3 Seconds (25.1-36.5) 05/15/17 20:06 - Constitutional Appears: No Acute Distress, Unkempt - Head Exam Head Exam: ATRAUMATIC, NORMAL INSPECTION, NORMOCEPHALIC - Eye Exam Eye Exam: EOMI, Normal appearance, PERRL - ENT Exam ENT Exam: Mucous Membranes Moist - Neck Exam Neck Exam: Normal Inspection. absent: Tenderness - Respiratory Exam Respiratory Exam: Clear to Ausculation Bilateral, NORMAL BREATHING PATTERN. absent: Accessory Muscle Use, Chest Wall Tenderness, Decreased Breath Sounds, Prolonged Expiratory Phase, Rales, Rhonchi, Wheezes, Respiratory Distress, Stridor - Cardiovascular Exam Cardiovascular Exam: Tachycardia, REGULAR RHYTHM, +S1, +S2 Additional comments: Dialysis access site without clinical signs of infection - GI/Abdominal Exam GI & Abdominal Exam: Soft, Normal Bowel Sounds. absent: Bruit, Distended, Firm , Guarding, Rigid, Tenderness, Diminished Bowel Sounds, Hernia, Hyperactive Bowel Sounds, Hypoactive Bowel Sounds, Organomegaly, Pulsatile Mass, Rebound, Mass - Extremities Exam Extremities Exam: Normal Capillary Refill, Normal Inspection. absent: Pedal Edema - Neurological Exam Neurological Exam: Alert, Awake, Oriented x3 - Psychiatric Exam Psychiatric exam: Normal Affect, Normal Mood - Skin Skin Exam: Dry, Intact, Normal Color, Warm Assessment and Plan - Assessment and Plan (Free Text) Assessment: 71 year old male with a past medical history significant for ESRD (HD on MWF), HTN, diverticulosis/diverticulitis, and anxiety who presented with shakes and chills from HD and met criteria for code sepsis overnight due to fever and elevated lactic acid. Currently, patient afebrile and repeat lactate was WNL. Plan: 1. SIRS of Undetermined Etiology -Chest X-Ray showed no active disease, UA did not demonstrate UTI and Influenza serology was negative -Patient with tachycardia but afebrile, without leukocytosis or tachypnea -Repeat lactate decreased from 2.3 to 1.2 -Blood and urine cultures pending -Continue Flagyl and Rocephin -Continue Tylenol PRN for fever -Continue Zofran PRN for N/V -Daily CBC to monitor for leukocytosis -ID consulted, all recommendations appreciated 2. ESRD on HD MWF -Renal Diet -Daily CMP and Phosphorous levels -Nephro consulted, all recommendations appreciated 3. History of Anxiety -Continue home Xanax, with BP parameters added -Psych consulted, all recommendations appreciated 4. History of HLD -Continue Lipitor GI Prophylaxis: Pepcid DVT Prophylaxis: Heparin Patient seen and case discussed with attending, Dr. Villela. <Greg Villela - Last Filed: 05/16/17 17:07> Objective - Vital Signs/Intake and Output Vital Signs (last 24 hours): Temp Pulse Resp BP Pulse Ox 98.7 F 94 H 20 97/61 L 98 05/16/17 12:00 05/16/17 14:00 05/16/17 06:00 05/16/17 12:00 05/16/17 06:00 Intake and Output: 05/16/17 05/16/17 06:59 18:59 Intake Total 320 Balance 320 - Medications Medications: Current Medications Acetaminophen (Tylenol 325mg Tab) 650 mg PO Q4H PRN PRN Reason: Fever >100.4 F Alprazolam (Xanax) 0.25 mg PO TID PRN; Protocol PRN Reason: Anxiety Stop: 05/23/17 00:34 Atorvastatin Calcium (Lipitor) 10 mg PO DAILY [facility] Last Admin: 05/16/17 09:17 Dose: 10 mg Famotidine (Pepcid) 40 mg PO HS [facility] Heparin Sodium (Porcine) (Heparin) 5,000 units SC Q12 [facility] PRN Reason: Protocol Last Admin: 05/16/17 09:17 Dose: 5,000 units Metronidazole (Flagyl) 500 mg in 100 mls @ 100 mls/hr IVPB Q8 [facility] PRN Reason: Protocol Last Admin: 05/16/17 14:09 Dose: 100 mls/hr Ceftriaxone Sodium (Rocephin 1 Gram Ivpb) 1 gm in 100 mls @ 100 mls/hr IVPB DAILY [facility] PRN Reason: Protocol Last Admin: 05/16/17 09:17 Dose: 100 mls/hr Ondansetron HCl (Zofran Inj) 4 mg IVP Q4H PRN PRN Reason: Nausea/Vomiting - Labs Labs: 05/16/17 06:30 05/16/17 06:30 PT 12.5 SECONDS (9.4-12.5) 05/15/17 20:06 INR 1.09 (0.93-1.08) H 05/15/17 20:06 APTT 27.3 Seconds (25.1-36.5) 05/15/17 20:06 Attending/Attestation - Attestation I have personally seen and examined this patient.: Yes I have fully participated in the care of the patient.: Yes I have reviewed all pertinent clinical information, including history, physical exam and plan: Yes Notes (Text): 05/16/17 17:04 attending note; Patient seen and examined with resident. Patient is a 71 year old male with a past medical history significant for end- stage renal disease on dialysis, hypertension ,diverticulosis/diverticulitis, and anxiety who presented with shakes and chills from HD and met criteria for code sepsis overnight due to fever and elevated lactic acid. currently patient is afebrile And nontoxic. cultures pending. on Rocephin and Flagyl. Patient got 1 dose of vancomycin. rapid flu is negative. Patient is complaining of weakness. Not in any acute distress. ID evaluation requested. Nephrology evaluation Appreciated. upon discharge the patient will follow-up with PMD of choice.
--- NOTE | 2017-05-16 16:47 | CARD ---
APPROVED REPORT EKG Measurement Heart [id number] <Conclusion> Sinus tachycardia Otherwise normal ECG
--- NOTE | 2017-05-16 16:49 | CARD ---
APPROVED REPORT EKG Measurement Heart [id number] <Conclusion> Sinus tachycardia Otherwise normal ECG
--- NOTE | 2017-05-16 21:22 | CP.PCM.CON ---
History of Present Illness - History of Present Illness History of Present Illness: Infectious Disease Consultation: May 16, 2017 71 yo male with sudden shakes and chills at HD. Sent to [facility] for evaluation. Medical History includes ESRD on HD, HTN, Diverticulosis, and Anxiety. The patient is a poor historian. Fevers of 103.3 F here at [facility]. Patient was on Cipro and Flagyl prescribed to him from ER here on 05/06/2017 for diverticulitis diagnosed through CT scan. Chest X-ray now shows no active disease. Meneses cultures pending. Influenza testing negative. PMHx: ESRD on HD, HTN, Diverticulosis/Diverticulitis, Anxiety PSHx: Left sides HD catheter, AV Fistula, Colonoscopy Allergies: NKDA Social Hx: No tobacco, EtOH, or illicit drug use Active Medications Acetaminophen (Tylenol 325mg Tab) 650 mg PO Q4H PRN PRN Reason: Fever >100.4 F Alprazolam (Xanax) 0.25 mg PO TID PRN; Protocol PRN Reason: Anxiety Stop: 05/23/17 00:34 Atorvastatin Calcium (Lipitor) 10 mg PO DAILY [facility] Last Admin: 05/16/17 09:17 Dose: 10 mg Famotidine (Pepcid) 40 mg PO HS [facility] Heparin Sodium (Porcine) (Heparin) 5,000 units SC Q12 [facility] PRN Reason: Protocol Last Admin: 05/16/17 09:17 Dose: 5,000 units Metronidazole (Flagyl) 500 mg in 100 mls @ 100 mls/hr IVPB Q8 [facility] PRN Reason: Protocol Last Admin: 05/16/17 14:09 Dose: 100 mls/hr Ceftriaxone Sodium (Rocephin 1 Gram Ivpb) 1 gm in 100 mls @ 100 mls/hr IVPB DAILY [facility] PRN Reason: Protocol Last Admin: 05/16/17 09:17 Dose: 100 mls/hr Ondansetron HCl (Zofran Inj) 4 mg IVP Q4H PRN PRN Reason: Nausea/Vomiting Family Hx: patient will only state that they have multiple medical issues ROS: Fevers, chills No cough, nausea, vomiting, diarrhea, headaches, dizziness, chest pain, abdominal pain, melena, hematuria, hematemesis, hematochezia, depression, anxiety. Past Patient History - Infectious Disease Hx of Infectious Diseases: None - Tetanus Immunizations Tetanus Immunization: Unknown - Past Social History Smoking Status: Never Smoked Alcohol: None Drugs: Denies - CARDIAC Hx Cardiac Disorders: Yes Hx Hypertension: Yes - PULMONARY Hx Respiratory Disorders: No - NEUROLOGICAL Hx Neurological Disorder: No - HEENT Hx HEENT Problems: No - RENAL Hx Chronic Kidney Disease: Yes Hx Dialysis: Yes (MWF) Hx Renal Failure: Yes - ENDOCRINE/METABOLIC Hx Endocrine Disorders: No - HEMATOLOGICAL/ONCOLOGICAL Hx Cancer: Yes (prostate) Hx Shingles: Yes - INTEGUMENTARY Hx Dermatological Problems: No - MUSCULOSKELETAL/RHEUMATOLOGICAL Hx Musculoskeletal Disorders: No Hx Falls: No - GASTROINTESTINAL Hx Gastrointestinal Disorders: Yes Hx Diverticulitis: Yes - GENITOURINARY/GYNECOLOGICAL Hx Prostate Problems: Yes (prostate CA) - PSYCHIATRIC Hx Psychophysiologic Disorder: Yes Hx Anxiety: Yes Hx Substance Use: No - SURGICAL HISTORY Hx Cholecystectomy: Yes - ANESTHESIA Hx Anesthesia Reactions: No Hx Malignant Hyperthermia: No Meds Allergies/Adverse Reactions: Allergies Allergy/AdvReac Type Severity Reaction Status Date / Time No Known Allergies Allergy Verified 05/15/17 18:02 - Medications Medications: Current Medications Acetaminophen (Tylenol 325mg Tab) 650 mg PO Q4H PRN PRN Reason: Fever >100.4 F Alprazolam (Xanax) 0.25 mg PO TID PRN; Protocol PRN Reason: Anxiety Stop: 05/23/17 00:34 Atorvastatin Calcium (Lipitor) 10 mg PO DAILY [facility] Last Admin: 05/16/17 09:17 Dose: 10 mg Famotidine (Pepcid) 40 mg PO HS [facility] Heparin Sodium (Porcine) (Heparin) 5,000 units SC Q12 [facility] PRN Reason: Protocol Last Admin: 05/16/17 09:17 Dose: 5,000 units Metronidazole (Flagyl) 500 mg in 100 mls @ 100 mls/hr IVPB Q8 [facility] PRN Reason: Protocol Last Admin: 05/16/17 14:09 Dose: 100 mls/hr Ceftriaxone Sodium (Rocephin 1 Gram Ivpb) 1 gm in 100 mls @ 100 mls/hr IVPB DAILY [facility] PRN Reason: Protocol Last Admin: 05/16/17 09:17 Dose: 100 mls/hr Ondansetron HCl (Zofran Inj) 4 mg IVP Q4H PRN PRN Reason: Nausea/Vomiting Physical Exam - Constitutional Appears: Non-toxic, No Acute Distress, Unkempt - Head Exam Head Exam: ATRAUMATIC, NORMOCEPHALIC - Eye Exam Eye Exam: EOMI, PERRL Pupil Exam: NORMAL ACCOMODATION - ENT Exam ENT Exam: Mucous Membranes Moist, Normal External Ear Exam, TM's Normal Bilaterally - Respiratory Exam Respiratory Exam: Clear to Auscultation Bilateral, NORMAL BREATHING PATTERN. absent: Rales, Rhonchi, Wheezes - Cardiovascular Exam Cardiovascular Exam: Tachycardia, +S1, +S2 - GI/Abdominal Exam GI & Abdominal Exam: Normal Bowel Sounds, Soft. absent: Distended, Tenderness - Extremities Exam Extremities exam: Positive for: full ROM, normal inspection - Neurological Exam Neurological exam: Alert, CN II-XII Intact, Oriented x3 - Psychiatric Exam Psychiatric exam: Normal Affect, Normal Mood - Skin Skin Exam: Intact, Normal Color Results - Vital Signs Recent Vital Signs: Last Vital Signs Temp 98.4 F 05/16/17 17:11 Pulse 110 H 05/16/17 18:00 Resp 21 05/16/17 17:11 BP 139/72 05/16/17 17:11 Pulse Ox 98 05/16/17 06:00 - Labs Result Diagrams: 05/16/17 06:30 05/16/17 06:30 Labs: Laboratory Results - last 24 hr 05/16/17 05/16/17 05/16/17 00:05 06:30 06:30 WBC 7.7 D RBC 3.65 Hgb 10.7 L Hct 34.4 L MCV 94.2 MCH 29.3 MCHC 31.1 RDW 14.4 Plt Count 54 L MPV 10.7 Gran % 83.1 H Lymph % (Auto) 5.2 L Wilson % (Auto) 11.4 H Eos % (Auto) 0.0 L Baso % (Auto) 0.3 Gran # 6.39 Lymph # (Auto) 0.4 L Wilson # (Auto) 0.9 H Eos # (Auto) 0.0 Baso # (Auto) 0.02 pO2 48 VBG pH 7.44 H VBG pCO2 40.0 VBG HCO3 27.2 VBG Total CO2 28.4 H VBG O2 Sat (Calc) 88.9 H VBG Base Excess 2.8 H VBG Potassium 4.1 Sodium 136.0 139 Chloride 102.0 98 Glucose 140 H Lactate 1.2 FiO2 21.0 Potassium 5.1 H Carbon Dioxide 25 Anion Gap 21 H BUN 30 H Creatinine 6.6 H Est GFR ( Amer) 10 Est GFR (Non-Af Amer) 8 Random Glucose 137 H Calcium 9.1 Total Bilirubin 1.0 AST 21 ALT 21 Alkaline Phosphatase 83 Total Protein 7.1 Albumin 4.2 Globulin 2.9 Albumin/Globulin Ratio 1.4 Venous Blood Potassium 4.1 Assessment & Plan - Assessment and Plan (Free Text) Assessment: 71 yo male with chills and fevers up to 103 F last night sent from HD center. Patient with ESRD on HD. Cultures in progress. On Ceftriaxone and Flagyl for antibiotic treatment at this time. No particular finding on Chest X-ray. Clinically appears better today. Afebrile today. Meneses cultures pending. No leukocytosis. Urinalysis appears mostly benign. Cannot rule out other viral etiology (noted influenza screens negative) versus bacterial sepsis. Supportive care. Continue on Rocephin and Flagyl for now as the patient is afebrile currently. Thank you for allowing me to participate in the care of the patient, we will follow with you.
--- NOTE | 2017-05-17 01:29 | CON ---
DATE: 05/16/2017 CHIEF COMPLAINT AND HISTORY OF PRESENT ILLNESS: This is a 71-year-old male who is coming into the hospital with complaints of shakes and chills. The patient continues to make urine. He was having difficulty in urinating. He is on dialysis three times a week. He was in the dialysis unit when he was complaining of the chills and sent to the ER for further evaluation. He was recently treated with acute diverticulitis and was discharged home. The patient is currently comfortable, has no complaint of any chest pain or shortness of breath. PAST MEDICAL HISTORY: End-stage renal disease on hemodialysis, diverticulitis, anxiety, and hypertension. PAST SURGICAL HISTORY: He has a left IJ Perma-Cath. He has a left AV fistula. Colonoscopy. FAMILY HISTORY: Noncontributory. SOCIAL HISTORY: He does not smoke, drink, or use drugs. ALLERGIES: NO KNOWN DRUG ALLERGIES. MEDICATIONS: Home medications have been reviewed. He is on Lipitor, Xanax. PHYSICAL EXAMINATION: VITAL SIGNS: The patient has a temperature of 99.7, pulse of 91, blood pressure 144/88, respirations 20, and O2 saturation 98%. Height is 5 feet and 9 inches. Weight is 191 pounds. BMI is 20. Copied To: GENERAL: The patient lying in bed, uncomfortable, and in no acute distress. HEENT: Atraumatic and normocephalic. Anicteric sclerae. Moist mucosa. [place] conjunctivae. No oral lesions. NECK: No JVD, anterior and posterior adenopathy, thyromegaly, or bruits. CARDIOVASCULAR: S1 and S2 regular. No murmur, rubs, or gallop. LUNGS: Clear to auscultation bilaterally. No wheezes, rales, or rhonchi. ABDOMEN: Bowel sounds are positive. Soft, nontender and nondistended. No hepatosplenomegaly. No rebound and no guarding EXTREMITIES: No cyanosis, clubbing, or edema. NEUROLOGIC: No facial asymmetry. Tongue is midline. No uvula deviation. Power is 5/5 upper extremity and lower extremity. Sensation intact in upper extremity and lower extremity. PSYCHIATRIC: He is awake, alert, and oriented x3. No anxiety or depression. He has normal affect. GENITOURINARY: No CVA tenderness. VASCULAR: 2+ pulses in the carotid pulses and pedal pulses. SKIN: No erythema or nodules SPINE: Shows normal curvature. LABORATORY DATA: Chest x-ray shows no active disease. EKG shows a heart rate of 114. ASSESSMENT: 1. End-stage renal disease, on hemodialysis. 2. Hypertension. 3. Secondary hyperparathyroidism. 4. Dyslipidemia. 5. Anxiety. 6. Chronic anemia secondary to chronic kidney disease. 7. Diverticulosis. PLAN: The patient is currently comfortable. He is on Flagyl. He is going to continue on heparin for DVT prophylaxis. The patient is on Lipitor for dyslipidemia. He is on Rocephin for antibiotics. The patient had Tylenol. He is going to continue with Zofran as needed. The patient is on a renal diet. We will continue dialysis, next dialysis is going to be on Thursday. The patient does have lots of anxiety issues because of his passing away and losing his home. Wilmer Thomason MD
[2017-05-17] MEDS: metroNIDAZOLE IV 500 mg/100 ml 500 MG/100 ML BAG IVPB SCH ×3 (05:20→21:35)
[2017-05-17 06:45] LABS: BASO # 0.01 K/mm3 (0.0-2.0); BASO % 0.3 % (0.0-3.0); EOS % 0.3 % (1.5-5.0); GRAN # 2.51 (1.4-6.5); GRAN % 72.7 % (50.0-68.0); LYMPH # 0.5 (1.2-3.4); LYMPH % 15.7 % (22.0-35.0); MEAN CELL VOLUME 92.8 fl (80.0-105.0); MEAN CORPUSCULAR HEMOGLOBIN 29.3 pg (25.0-35.0); MEAN CORPUSCULAR HGB CONC 31.6 g/dl (31.0-37.0); MEAN PLATELET VOLUME 11.3 fl (7.0-11.0); MONO # 0.4 (0.1-0.6); RBC 3.07 10^6/uL (3.5-6.1); RED CELL DISTRIBUTION WIDTH 14.5 % (11.5-14.5); WHITE BLOOD COUNT 3.5 10^3/ul (4.5-11.0)
[2017-05-17 07:00] LABS: ALB/GLOB RATIO 1.2 (1.1-1.8); ALBUMIN 3.4 g/dL (3.0-4.8); CALCIUM 8.8 mg/dL (8.4-10.5)
[2017-05-17] MEDS: cefTRIAXone 1 gm 1 GM/100 ML BAG IVPB SCH (10:26)
--- NOTE | 2017-05-17 13:02 | CP.PCM.PN ---
<Misbah Lockett - Last Filed: 05/17/17 12:59> Subjective - Date & Time of Evaluation Date of Evaluation: 05/17/17 Time of Evaluation: 12:59 - Subjective Subjective: Medicine Progress Note: Patient seen and assessed at bedside. No acute events overnight reported by patient or nursing staff. Patient endorsed that he would like to leave AMA this morning, as a family member had passes away. After being explained the risks and benefits of this, he ultimately decided to stay to continue inpatient treatment. Patient has no complaints at this time, including fever, chills, headache, chest pain, SOB, cough, abdominal pain, N/V/D/C, urinary symptoms or any numbness/tingling/weakness of any extremity. Objective - Vital Signs/Intake and Output Vital Signs (last 24 hours): Temp Pulse Resp BP Pulse Ox 98.1 F 56 L 20 120/56 L 94 L 05/17/17 12:00 05/17/17 12:00 05/17/17 12:00 05/17/17 12:00 05/17/17 06:00 Intake and Output: 05/17/17 05/17/17 06:59 18:59 Intake Total 360 360 Output Total 0 0 Balance 360 360 - Medications Medications: Current Medications Acetaminophen (Tylenol 325mg Tab) 650 mg PO Q4H PRN PRN Reason: Fever >100.4 F Alprazolam (Xanax) 0.25 mg PO TID PRN; Protocol PRN Reason: Anxiety Stop: 05/23/17 00:34 Atorvastatin Calcium (Lipitor) 10 mg PO DAILY [facility] Last Admin: 05/17/17 10:26 Dose: 10 mg Famotidine (Pepcid) 40 mg PO HS [facility] Last Admin: 05/16/17 21:20 Dose: 40 mg Heparin Sodium (Porcine) (Heparin) 5,000 units SC Q12 [facility] PRN Reason: Protocol Last Admin: 05/17/17 10:25 Dose: 5,000 units Metronidazole (Flagyl) 500 mg in 100 mls @ 100 mls/hr IVPB Q8 [facility] PRN Reason: Protocol Last Admin: 05/17/17 05:20 Dose: 100 mls/hr Ceftriaxone Sodium (Rocephin 1 Gram Ivpb) 1 gm in 100 mls @ 100 mls/hr IVPB DAILY [facility] PRN Reason: Protocol Last Admin: 05/17/17 10:26 Dose: 100 mls/hr Ondansetron HCl (Zofran Inj) 4 mg IVP Q4H PRN PRN Reason: Nausea/Vomiting - Labs Labs: 05/17/17 06:00 05/17/17 06:00 PT 12.5 SECONDS (9.4-12.5) 05/15/17 20:06 INR 1.09 (0.93-1.08) H 05/15/17 20:06 APTT 27.3 Seconds (25.1-36.5) 05/15/17 20:06 - Constitutional Appears: Non-toxic, No Acute Distress - Head Exam Head Exam: ATRAUMATIC, NORMAL INSPECTION, NORMOCEPHALIC - Eye Exam Eye Exam: EOMI, Normal appearance, PERRL - ENT Exam ENT Exam: Mucous Membranes Moist, Normal Exam - Neck Exam Neck Exam: Full ROM, Normal Inspection. absent: Lymphadenopathy - Respiratory Exam Respiratory Exam: Clear to Ausculation Bilateral, NORMAL BREATHING PATTERN. absent: Chest Wall Tenderness (Dialysis port noted to be without clinical signs of infection) - Cardiovascular Exam Cardiovascular Exam: REGULAR RHYTHM, RRR, +S1, +S2. absent: Murmur - GI/Abdominal Exam GI & Abdominal Exam: Soft, Normal Bowel Sounds. absent: Tenderness - Extremities Exam Extremities Exam: Full ROM, Normal Capillary Refill, Normal Inspection, Tenderness. absent: Calf Tenderness, Joint Swelling, Pedal Edema - Back Exam Back Exam: NORMAL INSPECTION - Neurological Exam Neurological Exam: Alert, Awake, CN II-XII Intact, Oriented x3 - Psychiatric Exam Psychiatric exam: Normal Affect, Normal Mood - Skin Skin Exam: Dry, Intact, Normal Color, Warm Assessment and Plan - Assessment and Plan (Free Text) Assessment: 71 year old male with a past medical history significant for ESRD (HD on MWF), HTN, diverticulosis/diverticulitis, and anxiety who presented with shakes and chills from HD and met criteria for code sepsis overnight due to fever and elevated lactic acid. Currently, patient afebrile and repeat lactate was WNL. Patient was found to have gram positive cocci growing in his blood cultures. Consideration as to whether or not his dialysis port needs to be replaced will be decided when the final blood culture report is obtained. Plan: 1. Gram Positive Cocci Bacteremia -Blood cultures growing gram positive cocci -Will consider dialysis port replacement based on final blood culture report -Patient currently afebrile and without tachycardia, leukocytosis or tachypnea -Continue Flagyl and Rocephin -Continue Tylenol PRN for fever -Continue Zofran PRN for N/V -Daily CBC to monitor for leukocytosis -ID consulted, all recommendations appreciated 2. ESRD on HD MWF -Renal Diet -Daily CMP and Phosphorous levels -Nephro consulted, all recommendations appreciated 3. History of Anxiety -Continue home Xanax, with BP parameters added -Psych consulted, all recommendations appreciated 4. History of HLD -Continue Lipitor GI Prophylaxis: Pepcid DVT Prophylaxis: Heparin Patient seen and case discussed with attending, Dr. Villela. <Greg Villela - Last Filed: 05/17/17 13:54> Objective - Vital Signs/Intake and Output Vital Signs (last 24 hours): Temp Pulse Resp BP Pulse Ox 98.1 F 56 L 20 120/56 L 94 L 05/17/17 12:00 05/17/17 12:00 05/17/17 12:00 05/17/17 12:00 05/17/17 06:00 Intake and Output: 05/17/17 05/17/17 06:59 18:59 Intake Total 360 360 Output Total 0 0 Balance 360 360 - Medications Medications: Current Medications Acetaminophen (Tylenol 325mg Tab) 650 mg PO Q4H PRN PRN Reason: Fever >100.4 F Alprazolam (Xanax) 0.25 mg PO TID PRN; Protocol PRN Reason: Anxiety Stop: 05/23/17 00:34 Atorvastatin Calcium (Lipitor) 10 mg PO DAILY [facility] Last Admin: 05/17/17 10:26 Dose: 10 mg Famotidine (Pepcid) 40 mg PO HS [facility] Last Admin: 05/16/17 21:20 Dose: 40 mg Heparin Sodium (Porcine) (Heparin) 5,000 units SC Q12 [facility] PRN Reason: Protocol Last Admin: 05/17/17 10:25 Dose: 5,000 units Metronidazole (Flagyl) 500 mg in 100 mls @ 100 mls/hr IVPB Q8 [facility] PRN Reason: Protocol Last Admin: 05/17/17 05:20 Dose: 100 mls/hr Ceftriaxone Sodium (Rocephin 1 Gram Ivpb) 1 gm in 100 mls @ 100 mls/hr IVPB DAILY [facility] PRN Reason: Protocol Last Admin: 05/17/17 10:26 Dose: 100 mls/hr Ondansetron HCl (Zofran Inj) 4 mg IVP Q4H PRN PRN Reason: Nausea/Vomiting - Labs Labs: 05/17/17 06:00 05/17/17 06:00 PT 12.5 SECONDS (9.4-12.5) 05/15/17 20:06 INR 1.09 (0.93-1.08) H 05/15/17 20:06 APTT 27.3 Seconds (25.1-36.5) 05/15/17 20:06 Attending/Attestation - Attestation I have personally seen and examined this patient.: Yes I have fully participated in the care of the patient.: Yes I have reviewed all pertinent clinical information, including history, physical exam and plan: Yes Notes (Text): 05/17/17 13:51 attending note; Patient seen and examined with resident. Patient is a 71 year old male with a past medical history significant for end- stage renal disease on dialysis, hypertension ,diverticulosis/diverticulitis, and anxiety who presented with shakes and chills from HD. currently patient is afebrile And nontoxic. blood culture is positive for gram- positive cocci. Identification pending. on Rocephin and Flagyl. Patient got 1 dose of vancomycin. rapid flu is negative. ID evaluation appreciated. Nephrology evaluation Appreciated. patient will get hemodialysis tomorrow. upon discharge the patient will follow-up with PMD of choice.
--- NOTE | 2017-05-17 17:32 | CP.PCM.PN ---
Subjective - Date & Time of Evaluation Date of Evaluation: 05/17/17 Time of Evaluation: 15:15 - Subjective Subjective: Infectious Disease Follow Up: May 17, 2017 71 yo male with sudden shakes and chills at HD. [place] [facility] [place] Medical History includes ESRD on HD, HTN, Diverticulosis, and Anxiety. The patient is a poor historian. Fevers of 103.3 F [place] [facility] Patient was on Cipro and Flagyl prescribed to him from ER here on 05/06/2017 for diverticulitis diagnosed through CT scan. On Cefriaxone currently. Given Vancomycin IV in ER and to continue now with HD doses given the FISH analysis suggesting MRSA. Chest X-ray now shows no active disease. [facility] cultures pending. Influenza testing negative. Patient is given various stories on why he needs to discharged from furniture being delivered today, to of a cousin, and a birthday democrat as the stories have not been consistent between the health care worker he speaks to (He told me that furniture was being delivered). Objective - Vital Signs/Intake and Output Vital Signs (last 24 hours): Temp Pulse Resp BP Pulse Ox 98.1 F 77 20 120/56 L 94 L 05/17/17 12:00 05/17/17 14:00 05/17/17 12:00 05/17/17 12:00 05/17/17 06:00 Intake and Output: 05/17/17 05/17/17 06:59 18:59 Intake Total 360 360 Output Total 0 0 Balance 360 360 - Medications Medications: Current Medications Acetaminophen (Tylenol 325mg Tab) 650 mg PO Q4H PRN PRN Reason: Fever >100.4 F Alprazolam (Xanax) 0.25 mg PO TID PRN; Protocol PRN Reason: Anxiety Stop: 05/23/17 00:34 Atorvastatin Calcium (Lipitor) 10 mg PO DAILY [facility] Last Admin: 05/17/17 10:26 Dose: 10 mg Famotidine (Pepcid) 40 mg PO HS [facility] Last Admin: 05/16/17 21:20 Dose: 40 mg Heparin Sodium (Porcine) (Heparin) 5,000 units SC Q12 [facility] PRN Reason: Protocol Last Admin: 05/17/17 10:25 Dose: 5,000 units Metronidazole (Flagyl) 500 mg in 100 mls @ 100 mls/hr IVPB Q8 [facility] PRN Reason: Protocol Last Admin: 05/17/17 14:21 Dose: 100 mls/hr Ceftriaxone Sodium (Rocephin 1 Gram Ivpb) 1 gm in 100 mls @ 100 mls/hr IVPB DAILY [facility] PRN Reason: Protocol Last Admin: 05/17/17 10:26 Dose: 100 mls/hr Ondansetron HCl (Zofran Inj) 4 mg IVP Q4H PRN PRN Reason: Nausea/Vomiting - Labs Labs: 05/17/17 06:00 05/17/17 06:00 PT 12.5 SECONDS (9.4-12.5) 05/15/17 20:06 INR 1.09 (0.93-1.08) H 05/15/17 20:06 APTT 27.3 Seconds (25.1-36.5) 05/15/17 20:06 - Constitutional Appears: Non-toxic, No Acute Distress, Chronically Ill - Head Exam Head Exam: ATRAUMATIC, NORMOCEPHALIC - Eye Exam Eye Exam: EOMI, PERRL Pupil Exam: NORMAL ACCOMODATION, PERRL - ENT Exam ENT Exam: Mucous Membranes Moist, Normal External Ear Exam, TM's Normal Bilaterally - Neck Exam Neck Exam: Full ROM, Normal Inspection Additional comments: Dialysis catheter in place. - Respiratory Exam Respiratory Exam: Clear to Ausculation Bilateral, NORMAL BREATHING PATTERN. absent: Rales, Rhonchi, Wheezes - Cardiovascular Exam Cardiovascular Exam: REGULAR RHYTHM, RRR, +S1, +S2 - GI/Abdominal Exam GI & Abdominal Exam: Soft, Normal Bowel Sounds. absent: Distended, Tenderness - Extremities Exam Extremities Exam: Full ROM, Normal Inspection - Neurological Exam Neurological Exam: Alert, Awake, CN II-XII Intact, Oriented x3 - Psychiatric Exam Psychiatric exam: Normal Affect, Normal Mood - Skin Skin Exam: Intact, Normal Color Assessment and Plan - Assessment and Plan (Free Text) Assessment: 71 yo male with chills and fevers up to 103 F last night sent from HD center. Patient with ESRD on HD. Cultures in progress. On Ceftriaxone and Flagyl for antibiotic treatment at this time. No particular finding on Chest X-ray. Clinically appears better today. Afebrile today. [facility]eses cultures pending. No leukocytosis. Urinalysis appears mostly benign. Cannot rule out other viral etiology (noted influenza screens negative) versus bacterial sepsis. Supportive care. Continue on Rocephin and Flagyl for now as the patient is afebrile currently. Vancomycin IV with HD. HD catheter must be removed especially if Staph Aureus confirmed. Patient will need echocardiogram as well. Thank you for allowing me to participate in the care of the patient, we will follow with you.
[2017-05-18] MEDS: metroNIDAZOLE IV 500 mg/100 ml 500 MG/100 ML BAG IVPB SCH ×3 (06:09→23:08)
[2017-05-18 07:10] LABS: BASO # 0.03 K/mm3 (0.0-2.0); BASO % 0.9 % (0.0-3.0); EOS # 0.1 (0.0-0.7); EOS % 2.1 % (1.5-5.0); GRAN # 1.8 (1.4-6.5); GRAN % 53.5 % (50.0-68.0); HEMOGLOBIN 8.8 g/dL (14.0-18.0); LYMPH # 0.9 (1.2-3.4); LYMPH % 27.1 % (22.0-35.0); MEAN CELL VOLUME 91.7 fl (80.0-105.0); MEAN CORPUSCULAR HEMOGLOBIN 29.1 pg (25.0-35.0); MEAN CORPUSCULAR HGB CONC 31.8 g/dl (31.0-37.0); MEAN PLATELET VOLUME 12.5 fl (7.0-11.0); MONO # 0.6 (0.1-0.6); MONO % 16.4 % (1.0-6.0); RBC 3.02 10^6/uL (3.5-6.1); RED CELL DISTRIBUTION WIDTH 14.3 % (11.5-14.5); WHITE BLOOD COUNT 3.4 10^3/ul (4.5-11.0)
[2017-05-18 07:16] LABS: ALB/GLOB RATIO 1.2 (1.1-1.8); ALBUMIN 3.3 g/dL (3.0-4.8); CALCIUM 8.9 mg/dL (8.4-10.5)
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
[2017-05-18] MEDS ORDERED: Vancomycin 1gm in NS 250ml 1 GM/250 ML BAG IVPB ONE (10:00)
--- NOTE | 2017-05-18 10:05 | PN ---
DATE: 05/18/2017 SUBJECTIVE: The patient has no complaints of any chest pain. No shortness of breath. No headaches or dizziness. PHYSICAL EXAMINATION VITAL SIGNS: Temperature is 98, pulse is 78, blood pressure is 118/67, respirations 20. GENERAL: The patient is lying in bed, flat, comfortable. HEENT: No oral lesion. Anicteric sclerae. Moist mucosa. NECK: No JVD, adenopathy, or thyromegaly. CARDIOVASCULAR: S1 and S2, regular. No murmurs, rubs, or gallops. LUNGS: Clear to auscultation bilaterally. No wheeze, rales, or rhonchi. ABDOMEN: Bowel sounds are positive, soft, nontender and nondistended. EXTREMITIES: No cyanosis, clubbing or edema. LABORATORY DATA: White count of 3.4, hemoglobin 8.8, creatinine is 9.9. ASSESSMENT: 1. End-stage renal disease, on hemodialysis. 2. Hypertension. 3. Secondary hyperparathyroidism. 4. Anxiety. 5. Dyslipidemia. 6. Chronic anemia secondary to chronic kidney disease. 7. Diverticulosis. 8. Left arteriovenous fistula. 9. Left PermCath. 10. Sepsis secondary to gram-positive cocci. PLAN: The patient is currently comfortable. He is going for dialysis today. He was seen by Psychiatry. The patient does not wish to take any psychiatric medications at this point. The patient's blood cultures are positive for gram-positive cocci. The patient has blood cultures that are positive. The patient is on Rocephin for antibiotics. I will change that to vancomycin because of the gram-positive cultures. The patient is going to have an echo done. The patient is being followed by Dr. Martinez. I did review his note. Waiting for final culture results. We will defer IV antibiotics to Dr. Martinez. We will give 1 dose of vancomycin on dialysis. Wilmer Thomason MD
--- NOTE | 2017-05-18 11:14 | CP.PCM.CON ---
History of Present Illness - History of Present Illness History of Present Illness: General surgery consult note for Dr. Anibal Del Cid DO, PGY - 1 Reason For Consult: AV Fistula and Catheter HPI: Patient is a 71 year old male with past medical history of HTN, anxiety, and CKD on dialysis MWF presented for fevers and chills. Patient was recently being treated for diverticulitis and was on cipro and flagyl at home. Patient was referred to surgery to evaluate his AV fistula to determine if it can be used for dialysis. Patient had it placed at [facility]. Patient admitted to fevers and chills as well as somnolence on admission, but denies any symptoms right now. Nephrology: Dr Thomason PMHx: ESRD (on HD M/W/), htn, diverticulosis/diverticulitis, and anxiety PSHx: Left sided HD cath, AV fistula, colonoscopy FMHx: States " they all have problems" Social: Denies history of tobacco, alcohol and illicit drug use. Allergy: NKDA Home meds: Xanax and Lipitor, need to confirm. Review of Systems: Constitutional: patient denies fever, chills, generalized weakness ENT: patient denies dysphagia, otalgia, hearing deficit, rhinorrhea Eyes: patient denies sudden loss of vision, diplopia, blurred vision MSK: patient denies muscle stiffness, joint pain, extremity cramping Cardio: patient denies shortness of breath, heart murmur, chest pain Pulm: patient denies cough, hemoptysis, wheeze Gastrointestinal: patient denies loss of appetite, pain, constipation, melena , nausea, vomiting, diarrhea Genitourinary: patient denies burning on urination, urinary frequency, hematuria, urinary urgency Neuro: patient denies paresis, paresthesia, dizziness, headache, numbness , tingling Derm: patient denies skin changes, lesions, nail changes Endo: patient denies intolerance to heat/cold, diaphoresis, night sweats, polydipsia Psych: patient denies anxiety, depression, mood changes Past Patient History - Infectious Disease Hx of Infectious Diseases: None - Tetanus Immunizations Tetanus Immunization: Unknown - Past Social History Smoking Status: Never Smoked Alcohol: None Drugs: Denies - CARDIAC Hx Cardiac Disorders: Yes Hx Hypertension: Yes - PULMONARY Hx Respiratory Disorders: No - NEUROLOGICAL Hx Neurological Disorder: No - HEENT Hx HEENT Problems: No - RENAL Hx Chronic Kidney Disease: Yes Hx Dialysis: Yes (MWF) Hx Renal Failure: Yes - ENDOCRINE/METABOLIC Hx Endocrine Disorders: No - HEMATOLOGICAL/ONCOLOGICAL Hx Cancer: Yes (prostate) Hx Shingles: Yes - INTEGUMENTARY Hx Dermatological Problems: No - MUSCULOSKELETAL/RHEUMATOLOGICAL Hx Musculoskeletal Disorders: No Hx Falls: No - GASTROINTESTINAL Hx Gastrointestinal Disorders: Yes Hx Diverticulitis: Yes - GENITOURINARY/GYNECOLOGICAL Hx Prostate Problems: Yes (prostate CA) - PSYCHIATRIC Hx Psychophysiologic Disorder: Yes Hx Anxiety: Yes Hx Substance Use: No - SURGICAL HISTORY Hx Cholecystectomy: Yes - ANESTHESIA Hx Anesthesia Reactions: No Hx Malignant Hyperthermia: No Meds Allergies/Adverse Reactions: Allergies Allergy/AdvReac Type Severity Reaction Status Date / Time No Known Allergies Allergy Verified 05/15/17 18:02 - Medications Medications: Current Medications Acetaminophen (Tylenol 325mg Tab) 650 mg PO Q4H PRN PRN Reason: Fever >100.4 F Alprazolam (Xanax) 0.25 mg PO TID PRN; Protocol PRN Reason: Anxiety Stop: 05/23/17 00:34 Atorvastatin Calcium (Lipitor) 10 mg PO DAILY [facility] Last Admin: 05/17/17 10:26 Dose: 10 mg Famotidine (Pepcid) 40 mg PO HS [facility] Last Admin: 05/17/17 21:35 Dose: 40 mg Heparin Sodium (Porcine) (Heparin) 5,000 units SC Q12 [facility] PRN Reason: Protocol Last Admin: 05/17/17 21:35 Dose: 5,000 units Metronidazole (Flagyl) 500 mg in 100 mls @ 100 mls/hr IVPB Q8 [facility] PRN Reason: Protocol Last Admin: 05/18/17 06:09 Dose: 100 mls/hr Ceftriaxone Sodium (Rocephin 1 Gram Ivpb) 1 gm in 100 mls @ 100 mls/hr IVPB DAILY [facility] PRN Reason: Protocol Last Admin: 05/17/17 10:26 Dose: 100 mls/hr Vancomycin HCl (Vancomycin 1gm) 1 gm in 250 mls @ 167 mls/hr IVPB ONCE ONE PRN Reason: Protocol Stop: 05/18/17 11:29 Ondansetron HCl (Zofran Inj) 4 mg IVP Q4H PRN PRN Reason: Nausea/Vomiting Physical Exam - Additional Findings Additional findings: Physical Exam Const'l: awake alert & oriented x 4, no acute distress Head/Neck: neck supple, no jvd, trachea midline, carotid midline, no cervical/head mass Eyes: pupils equally reactive to light and accommodation, nonicteric sclera, extraocular intact ENT: auditory acuity grossly intact, throat not congested, no nasal deformity Cardio: regular rate, regular rhythm, no murmurs rubs gallops, no carotid bruit, normal s1, s2 Pulm: no accessory muscle use, equal normal breath sounds bilaterally, clear to ausculation bilaterally Abd: soft non tender non-distended, normal bowel sounds x 4 quadrants, no palpable masses Derm: no rashes, no ulcers, no lesions Extr: +Patient has mature A/V fistula on left upper extremity; no edema, no cyanosis, no calf tenderness, no lesions, no varicosities Neuro: cranial nerves II-XII grossly intact, upper extremity and~lower extremity 5/5muscle strength bilaterally, no loss of sensation in upper extremities, lower extremities bilaterally Results - Vital Signs Recent Vital Signs: Last Vital Signs Temp 98 F 05/18/17 06:00 Pulse 78 05/18/17 06:00 Resp 20 05/18/17 06:00 BP 118/67 05/18/17 06:00 Pulse Ox 96 05/18/17 06:00 - Labs Result Diagrams: 05/18/17 06:30 05/18/17 06:30 Labs: Laboratory Results - last 24 hr 05/18/17 05/18/17 06:30 06:30 WBC 3.4 L RBC 3.02 L Hgb 8.8 L Hct 27.7 L MCV 91.7 MCH 29.1 MCHC 31.8 RDW 14.3 Plt Count 69 L MPV 12.5 H Gran % 53.5 Lymph % (Auto) 27.1 [place] % (Auto) 16.4 H Eos % (Auto) 2.1 Baso % (Auto) 0.9 Gran # 1.80 Lymph # (Auto) 0.9 L [place] # (Auto) 0.6 Eos # (Auto) 0.1 Baso # (Auto) 0.03 Sodium 136 Potassium 4.0 Chloride 100 Carbon Dioxide 21 Anion Gap 19 BUN 58 H Creatinine 9.9 H* Est GFR ( Amer) 6 Est GFR (Non-Af Amer) 5 Random Glucose 90 Calcium 8.9 Phosphorus 4.6 H Total Bilirubin 0.6 AST 22 ALT 27 Alkaline Phosphatase 67 Total Protein 6.1 Albumin 3.3 Globulin 2.8 Albumin/Globulin Ratio 1.2 Assessment & Plan - Assessment and Plan (Free Text) Assessment: Assessment and Plan Patient is a 71 year old male with past medical history of HTN, anxiety, and CKD on dialysis MWF who presents for evaluation of A/V fistula Plan - Patient's A/V fistula is mature and can be used for dialysis - Patient's permacath can be removed, we will schedule for OR - Antibiotics per primary - Rocephin and Flagyl - Rest of recommendations per Dr. Lee
[2017-05-18] MEDS ORDERED: Doxercalciferol 4 mcg/2 ml Inj IVP ONE (11:56)
--- NOTE | 2017-05-18 12:26 | CP.PCM.PN ---
<Basilio Alexandre - Last Filed: 05/18/17 12:46> Subjective - Date & Time of Evaluation Date of Evaluation: 05/18/17 Time of Evaluation: 12:22 - Subjective Subjective: Medicine Progress note: Patient seen and evaluated at bedside with no acute complaints. Is aware of MRSA positive blood cultures and need for surgery to remove temp cath and eval AV fistula. Asked what time everything would take place. Patient currently denies fever, chills, headache, chest pain, shortness of breath, cough, abdominal pain, nausea, vomiting, diarrhea. Objective - Vital Signs/Intake and Output Vital Signs (last 24 hours): Temp Pulse Resp BP Pulse Ox 98 F 78 20 118/67 96 05/18/17 06:00 05/18/17 06:00 05/18/17 06:00 05/18/17 06:00 05/18/17 06:00 Intake and Output: 05/18/17 05/18/17 06:59 18:59 Intake Total 200 Balance 200 - Medications Medications: Current Medications Acetaminophen (Tylenol 325mg Tab) 650 mg PO Q4H PRN PRN Reason: Fever >100.4 F Alprazolam (Xanax) 0.25 mg PO TID PRN; Protocol PRN Reason: Anxiety Stop: 05/23/17 00:34 Atorvastatin Calcium (Lipitor) 10 mg PO DAILY [facility] Last Admin: 05/17/17 10:26 Dose: 10 mg Famotidine (Pepcid) 40 mg PO HS [facility] Last Admin: 05/17/17 21:35 Dose: 40 mg Heparin Sodium (Porcine) (Heparin) 5,000 units SC Q12 [facility] PRN Reason: Protocol Last Admin: 05/17/17 21:35 Dose: 5,000 units Metronidazole (Flagyl) 500 mg in 100 mls @ 100 mls/hr IVPB Q8 [facility] PRN Reason: Protocol Last Admin: 05/18/17 06:09 Dose: 100 mls/hr Ceftriaxone Sodium (Rocephin 1 Gram Ivpb) 1 gm in 100 mls @ 100 mls/hr IVPB DAILY [facility] PRN Reason: Protocol Last Admin: 05/17/17 10:26 Dose: 100 mls/hr Ondansetron HCl (Zofran Inj) 4 mg IVP Q4H PRN PRN Reason: Nausea/Vomiting - Labs Labs: 05/18/17 06:30 05/18/17 06:30 PT 12.5 SECONDS (9.4-12.5) 05/15/17 20:06 INR 1.09 (0.93-1.08) H 05/15/17 20:06 APTT 27.3 Seconds (25.1-36.5) 05/15/17 20:06 - Constitutional Appears: No Acute Distress - Head Exam Head Exam: ATRAUMATIC, NORMAL INSPECTION, NORMOCEPHALIC - Eye Exam Eye Exam: EOMI, Normal appearance - ENT Exam ENT Exam: Mucous Membranes Moist, Normal Exam - Neck Exam Neck Exam: Full ROM, Normal Inspection - Respiratory Exam Respiratory Exam: Clear to Ausculation Bilateral, NORMAL BREATHING PATTERN. absent: Rhonchi, Wheezes - Cardiovascular Exam Cardiovascular Exam: REGULAR RHYTHM, +S1, +S2 - GI/Abdominal Exam GI & Abdominal Exam: Soft, Normal Bowel Sounds - Extremities Exam Extremities Exam: Full ROM, Normal Inspection - Back Exam Back Exam: NORMAL INSPECTION - Neurological Exam Neurological Exam: Alert, Awake, Oriented x3 - Psychiatric Exam Psychiatric exam: Normal Affect, Normal Mood - Skin Skin Exam: Intact, Normal Color, Warm Assessment and Plan - Assessment and Plan (Free Text) Assessment: 71 year old male with a past medical history significant for ESRD (HD on MWF), HTN, diverticulosis/diverticulitis, and anxiety who presented with shakes and chills from HD and met criteria for code sepsis overnight due to fever and elevated lactic acid with blood cultures positive for MRSA. Plan: Gram Positive Cocci Bacteremia -Blood cultures reveal MRSA; will receive Vancomycin IV with HD -Surgery consulted for AV fistula evaluation and HD cath removal -Continue Flagyl and Rocephin -Continue Tylenol PRN for fever -Continue Zofran PRN for N/V -Daily CBC to monitor for leukocytosis -ID consulted and recommends temp cath removal since blood cultures reveal MRSA -Echo ordered to rule out endocarditis; results pending ESRD on HD MWF -Renal Diet -Daily CMP and Phosphorous levels -Nephro consulted, all recommendations appreciated Normocytic Anemia -Iron studies ordered; results pending -Haptoglobin, LDH, T bili ordered; results pending -CBC with peripheral smear ordered; results pending -Type and screened History of Anxiety -Continue home Xanax, with BP parameters added -Psych consulted, all recommendations appreciated History of HLD -Continue Lipitor GI/DVTProphylaxis: Pepcid/Heparin Patient seen and case discussed with attending, Dr. Rocco Alexandre PGY1 <Herminia Valiente - Last Filed: 05/20/17 17:29> Objective - Vital Signs/Intake and Output Vital Signs (last 24 hours): Temp Pulse Resp BP Pulse Ox 97.9 F 75 20 129/52 L 98 05/20/17 00:00 05/20/17 00:00 05/20/17 00:00 05/20/17 00:00 05/20/17 00:00 Intake and Output: 05/20/17 05/20/17 06:59 18:59 Intake Total 300 Balance 300 - Medications Medications: Current Medications Acetaminophen (Tylenol 325mg Tab) 650 mg PO Q4H PRN PRN Reason: Fever >100.4 F Alprazolam (Xanax) 0.25 mg PO TID PRN; Protocol PRN Reason: Anxiety Stop: 05/23/17 00:34 Atorvastatin Calcium (Lipitor) 10 mg PO DAILY [facility] Last Admin: 05/20/17 10:04 Dose: 10 mg Famotidine (Pepcid) 40 mg PO HS [facility] Last Admin: 05/19/17 21:43 Dose: 40 mg Heparin Sodium (Porcine) (Heparin) 5,000 units SC Q12 [facility] PRN Reason: Protocol Last Admin: 05/20/17 10:05 Dose: 5,000 units Metronidazole (Flagyl) 500 mg PO Q8 [facility] Last Admin: 05/20/17 15:24 Dose: 500 mg Ondansetron HCl (Zofran Inj) 4 mg IVP Q4H PRN PRN Reason: Nausea/Vomiting - Labs Labs: 05/20/17 07:30 05/20/17 07:30 PT 12.8 SECONDS (9.4-12.5) H 05/19/17 11:44 INR 1.11 (0.93-1.08) H 05/19/17 11:44 APTT 26.7 Seconds (25.1-36.5) 05/19/17 11:44 Attending/Attestation - Attestation I have personally seen and examined this patient.: Yes I have fully participated in the care of the patient.: Yes I have reviewed all pertinent clinical information, including history, physical exam and plan: Yes Notes (Text): I have seen and examined the patient at bedside. Agree with the above note with the following additions/ exceptions: Briefly this is 71 year old male with history of ESRD on HD, HTN, diverticulosis/ diverticulitis, anxiety, dyslipidemia who was admitted for evaluation of shakes and chills post HD and found to have MRSA bacateremia. Continue vancomycin with HD. Patient gets HD M, W and F. Will consult surgery for catheter removal and to find out if AV fistula is mature. TTE pending. Upon discharge patient will follow up with Dr Thomason. Dr Herminia Valiente
[2017-05-18 20:59] LABS: BASO # 0.02 K/mm3 (0.0-2.0); BASO % 0.6 % (0.0-3.0); EOS # 0.1 (0.0-0.7); EOS % 1.6 % (1.5-5.0); GRAN # 1.7 (1.4-6.5); GRAN % 54.5 % (50.0-68.0); HEMOGLOBIN 9.9 g/dL (14.0-18.0); LYMPH # 0.7 (1.2-3.4); LYMPH % 23.7 % (22.0-35.0); MEAN CORPUSCULAR HEMOGLOBIN 29.5 pg (25.0-35.0); MEAN PLATELET VOLUME 11.6 fl (7.0-11.0); MONO # 0.6 (0.1-0.6); MONO % 19.6 % (1.0-6.0); RBC 3.36 10^6/uL (3.5-6.1); RED CELL DISTRIBUTION WIDTH 14.3 % (11.5-14.5); WHITE BLOOD COUNT 3.1 10^3/ul (4.5-11.0)
[2017-05-18] MEDS: cefTRIAXone 1 gm 1 GM/100 ML BAG IVPB SCH (20:59)
[2017-05-18 21:23] LABS: IRON 43 ug/dL (45-180)
[2017-05-18 21:32] LABS: % IRON SATURATION 25 % (20-55); TOTAL IRON BINDING CAPACITY 168 ug/dL (261-462)
--- NOTE | 2017-05-18 22:43 | CP.PCM.PN ---
Subjective - Date & Time of Evaluation Date of Evaluation: 05/18/17 Time of Evaluation: 20:30 - Subjective Subjective: Infectious Disease Follow Up: May 18, 2017 71 yo male with sudden shakes and chills at HD. Sent to [facility] [place]. Medical History includes ESRD on HD, HTN, Diverticulosis, and Anxiety. The patient is a poor historian. Fevers of 103.3 F here at [facility]. Patient was on Cipro and Flagyl prescribed to him from ER here on 05/06/2017 for diverticulitis diagnosed through CT scan. On Cefriaxone currently. Given Vancomycin IV in ER and to continue now with HD doses given the FISH analysis suggesting MRSA. Chest X-ray now shows no active disease. Meneses cultures pending. Influenza testing negative. Patient is given various stories on why he needs to discharged from furniture being delivered today, to of a cousin, and a birthday alliance party as the stories have not been consistent between the health care worker he speaks to (He told me that furniture was being delivered). Objective - Vital Signs/Intake and Output Vital Signs (last 24 hours): Temp Pulse Resp BP Pulse Ox 97.4 F L 89 20 115/65 99 05/18/17 16:00 05/18/17 16:00 05/18/17 16:00 05/18/17 16:00 05/18/17 16:00 Intake and Output: 05/18/17 05/19/17 18:59 06:59 Intake Total 540 Balance 540 - Medications Medications: Current Medications Acetaminophen (Tylenol 325mg Tab) 650 mg PO Q4H PRN PRN Reason: Fever >100.4 F Alprazolam (Xanax) 0.25 mg PO TID PRN; Protocol PRN Reason: Anxiety Stop: 05/23/17 00:34 Atorvastatin Calcium (Lipitor) 10 mg PO DAILY [facility] Last Admin: 05/18/17 14:52 Dose: 10 mg Famotidine (Pepcid) 40 mg PO HS [facility] Last Admin: 05/17/17 21:35 Dose: 40 mg Heparin Sodium (Porcine) (Heparin) 5,000 units SC Q12 [facility] PRN Reason: Protocol Last Admin: 05/18/17 20:58 Dose: Not Given Metronidazole (Flagyl) 500 mg in 100 mls @ 100 mls/hr IVPB Q8 [facility] PRN Reason: Protocol Last Admin: 05/18/17 14:52 Dose: 100 mls/hr Ceftriaxone Sodium (Rocephin 1 Gram Ivpb) 1 gm in 100 mls @ 100 mls/hr IVPB DAILY [facility] PRN Reason: Protocol Last Admin: 05/18/17 20:59 Dose: Not Given Ondansetron HCl (Zofran Inj) 4 mg IVP Q4H PRN PRN Reason: Nausea/Vomiting - Labs Labs: 05/18/17 20:00 05/18/17 06:30 PT 12.5 SECONDS (9.4-12.5) 05/15/17 20:06 INR 1.09 (0.93-1.08) H 05/15/17 20:06 APTT 27.3 Seconds (25.1-36.5) 05/15/17 20:06 - Constitutional Appears: Non-toxic, No Acute Distress, Chronically Ill - Head Exam Head Exam: ATRAUMATIC, NORMOCEPHALIC - Eye Exam Eye Exam: EOMI, PERRL Pupil Exam: NORMAL ACCOMODATION, PERRL - ENT Exam ENT Exam: Mucous Membranes Moist, Normal External Ear Exam, TM's Normal Bilaterally - Neck Exam Neck Exam: Full ROM, Normal Inspection Additional comments: Dialysis catheter in place. - Respiratory Exam Respiratory Exam: Clear to Ausculation Bilateral, NORMAL BREATHING PATTERN. absent: Rales, Rhonchi, Wheezes - Cardiovascular Exam Cardiovascular Exam: REGULAR RHYTHM, RRR, +S1, +S2 - GI/Abdominal Exam GI & Abdominal Exam: Soft, Normal Bowel Sounds. absent: Distended, Tenderness - Extremities Exam Extremities Exam: Full ROM, Normal Inspection - Neurological Exam Neurological Exam: Alert, Awake, CN II-XII Intact, Oriented x3 - Psychiatric Exam Psychiatric exam: Normal Affect, Normal Mood - Skin Skin Exam: Intact, Normal Color Assessment and Plan - Assessment and Plan (Free Text) Assessment: 71 yo male with chills and fevers up to 103 F last night sent from HD center. Patient with ESRD on HD. Cultures in progress. On Ceftriaxone and Flagyl for antibiotic treatment at this time. No particular finding on Chest X-ray. Clinically appears better today. Afebrile today. Meneses cultures pending. No leukocytosis. Urinalysis appears mostly benign. Cannot rule out other viral etiology (noted influenza screens negative) versus bacterial sepsis. Supportive care. Continue on Rocephin and Flagyl for now as the patient is afebrile currently. Vancomycin IV with HD. HD catheter must be removed especially if Staph Aureus confirmed. Patient will need echocardiogram as well. Confirmed MRSA. Continue with Vancomycin with HD. Surgery to plan on removal of the HD catheter as graft appears to be mature. Can stop Rocephin in AM. Thank you for allowing me to participate in the care of the patient, we will follow with you.
[2017-05-19] MEDS: metroNIDAZOLE IV 500 mg/100 ml 500 MG/100 ML BAG IVPB SCH (05:41)
--- NOTE | 2017-05-19 09:45 | CP.PCM.PN ---
Subjective - Date & Time of Evaluation Date of Evaluation: 05/19/17 Time of Evaluation: 09:40 - Subjective Subjective: General surgery progress note for Dr. Barnett Patient seen and examined at bedside. Records will be obtained today for patient's previous procedures - fistula and permacath. Patient currently denies any symptoms and is doing well. Objective - Vital Signs/Intake and Output Vital Signs (last 24 hours): Temp Pulse Resp BP Pulse Ox 98.5 F 85 20 101/78 95 05/19/17 07:00 05/19/17 07:00 05/19/17 07:00 05/19/17 07:00 05/19/17 07:00 Intake and Output: 05/19/17 05/19/17 06:59 18:59 Intake Total 540 Balance 540 - Medications Medications: Current Medications Acetaminophen (Tylenol 325mg Tab) 650 mg PO Q4H PRN PRN Reason: Fever >100.4 F Alprazolam (Xanax) 0.25 mg PO TID PRN; Protocol PRN Reason: Anxiety Stop: 05/23/17 00:34 Atorvastatin Calcium (Lipitor) 10 mg PO DAILY [facility] Last Admin: 05/18/17 14:52 Dose: 10 mg Famotidine (Pepcid) 40 mg PO HS [facility] Last Admin: 05/18/17 23:13 Dose: 40 mg Heparin Sodium (Porcine) (Heparin) 5,000 units SC Q12 [facility] PRN Reason: Protocol Last Admin: 05/18/17 23:13 Dose: 5,000 units Metronidazole (Flagyl) 500 mg in 100 mls @ 100 mls/hr IVPB Q8 [facility] PRN Reason: Protocol Last Admin: 05/19/17 05:41 Dose: 100 mls/hr Ceftriaxone Sodium (Rocephin 1 Gram Ivpb) 1 gm in 100 mls @ 100 mls/hr IVPB DAILY [facility] PRN Reason: Protocol Last Admin: 05/18/17 20:59 Dose: Not Given Ondansetron HCl (Zofran Inj) 4 mg IVP Q4H PRN PRN Reason: Nausea/Vomiting - Labs Labs: 05/18/17 20:00 05/18/17 06:30 PT 12.5 SECONDS (9.4-12.5) 05/15/17 20:06 INR 1.09 (0.93-1.08) H 02/09/18 20:06 APTT 27.3 Seconds (25.1-36.5) 05/15/17 20:06 - Additional Findings Additional findings: Physical Exam Const'l: awake alert & oriented x 4, no acute distress Head/Neck: neck supple, no jvd, trachea midline, carotid midline, no cervical/head mass Eyes: pupils equally reactive to light and accommodation, nonicteric sclera, extraocular intact ENT: auditory acuity grossly intact, throat not congested, no nasal deformity Cardio: regular rate, regular rhythm, no murmurs rubs gallops, no carotid bruit, normal s1, s2 Pulm: no accessory muscle use, equal normal breath sounds bilaterally, clear to ausculation bilaterally Abd: soft non tender non-distended, normal bowel sounds x 4 quadrants, no palpable masses Derm: no rashes, no ulcers, no lesions Extr: +Patient has mature A/V fistula on left upper extremity; no edema, no cyanosis, no calf tenderness, no lesions, no varicosities Neuro: cranial nerves II-XII grossly intact, upper extremity and~lower extremity 5/5muscle strength bilaterally, no loss of sensation in upper extremities, lower extremities bilaterally Assessment and Plan - Assessment and Plan (Free Text) Assessment: Assessment and Plan Patient is a 71 year old male with past medical history of HTN, anxiety, and CKD on dialysis MWF who presents for evaluation of A/V fistula Plan - Patient's A/V fistula is mature and can be used for dialysis - Plan is for A/V fistula to be used for dialysis tomorrow; as long as it functions appropriately, we will arrange for permacath to be removed either in OR or bedside - Antibiotics per primary - Chasephin and Flagyl - Rest of recommendations per Dr. Lee
[2017-05-19] MEDS: cefTRIAXone 1 gm 1 GM/100 ML BAG IVPB SCH (11:15)
--- NOTE | 2017-05-19 11:29 | CP.PCM.PCO ---
Addendum Addendum: 05/19/17 11:28 as per report, she signed off from this case, pt is not in imminent danger to self or others should you have any questions or if pt's mental status changed, please feel free to reconsult Thank you
[2017-05-19 11:51] LABS: BASO # 0.03 K/mm3 (0.0-2.0); BASO % 0.9 % (0.0-3.0); EOS # 0.1 (0.0-0.7); EOS % 1.8 % (1.5-5.0); GRAN # 1.88 (1.4-6.5); GRAN % 55.8 % (50.0-68.0); HEMOGLOBIN 9.4 g/dL (14.0-18.0); LYMPH # 0.9 (1.2-3.4); LYMPH % 26.1 % (22.0-35.0); MEAN CELL VOLUME 91.6 fl (80.0-105.0); MEAN CORPUSCULAR HEMOGLOBIN 29.2 pg (25.0-35.0); MEAN CORPUSCULAR HGB CONC 31.9 g/dl (31.0-37.0); MEAN PLATELET VOLUME 12.2 fl (7.0-11.0); MONO # 0.5 (0.1-0.6); MONO % 15.4 % (1.0-6.0); RBC 3.22 10^6/uL (3.5-6.1); WHITE BLOOD COUNT 3.4 10^3/ul (4.5-11.0)
[2017-05-19 12:11] LABS: INR 1.11 (0.93-1.08); PARTIAL THROMBOPLASTIN TIME 26.7 Seconds (25.1-36.5); PROTHROMBIN TIME 12.8 SECONDS (9.4-12.5)
[2017-05-19 12:16] LABS: ALB/GLOB RATIO 1.3 (1.1-1.8); ALBUMIN 3.8 g/dL (3.0-4.8); CALCIUM 9.1 mg/dL (8.4-10.5)
[2017-05-19 13:46] LABS: FOLATE 6.3 ng/mL
--- NOTE | 2017-05-19 18:33 | CARD ---
APPROVED REPORT EXAM: Two-dimensional and M-mode echocardiogram with Doppler and color Doppler. INDICATION Infection:Rule out subacute bacterial endocarditis 2D DIMENSIONS Left Atrium (2D)4.3 (1.6-4.0cm)IVSd1.0 (0.7-1.1cm) LVDd4.8 (3.9-5.9cm)PWd1.2 (0.7-1.1cm) LVDs3.5 (2.5-4.0cm)FS (%) 27.1 % LVEF (%)52.8 (>50%) M-Mode DIMENSIONS Aortic Root3.38 (2.2-3.7cm)Aortic Cusp Exc.1.84 (1.5-2.0cm) Aortic Valve AoV Peak Whynqbqp234.6cm/[place] Peak GR.7mmHg Mitral Valve MV E Mjqwzswz81.9cm/sMV DECEL [id number] A Wywcjapd006.4cm/s E/A ratio0.7 TDI E/Lateral E'0.0E/Medial E'0.0 Tricuspid Valve TR Peak [id number]/sRAP [id number] Peak Gr.23mmHg [id number] LEFT VENTRICLE The left ventricle is normal size. There is borderline concentric left ventricular hypertrophy. The systolic function is mildly impaired. There is global hypokinesis of the left ventricle. RIGHT VENTRICLE The right ventricle is normal size. The right ventricular systolic function is normal. ATRIA The left atrium is mildly dilated. The right atrium size is normal. The interatrial septum is intact with no evidence for an atrial septal defect. AORTIC VALVE The aortic valve is mildly thickened. There is mild aortic regurgitation. There is no aortic valvular stenosis. MITRAL VALVE The mitral valve leaflets are calcified. Mitral regurgitation is mild. A vegetation of the mitral valve cannot be excluded. TRICUSPID VALVE The tricuspid valve is normal in structure. There is mild tricuspid regurgitation. PULMONIC VALVE The pulmonary valve is normal in structure. GREAT VESSELS The aortic root is normal in size. The IVC is normal in size and collapses >50% with inspiration. PERICARDIAL EFFUSION There is no pleural effusion. There is no pericardial effusion. <Conclusion> Dilated LA. Normal LV size. Mild LV global hypokinesis. Calcified mitral valve leaflets, cannot exclude vegetation. Mild MR. Mild AI. Mild TR.
--- NOTE | 2017-05-19 22:46 | CP.PCM.PN ---
Subjective - Date & Time of Evaluation Date of Evaluation: 05/19/17 Time of Evaluation: 20:30 - Subjective Subjective: Infectious Disease Follow Up: May 19, 2017 71 yo male with sudden shakes and chills at HD. [place] [facility] [place] Medical History includes ESRD on HD, HTN, Diverticulosis, and Anxiety. The patient is a poor historian. Fevers of 103.3 F [place] [facility] Patient was on Cipro and Flagyl prescribed to him from ER here on 05/06/2017 for diverticulitis diagnosed through CT scan. On Cefriaxone currently. Given Vancomycin IV in ER and to continue now with HD doses given the FISH analysis suggesting MRSA. Chest X-ray now shows no active disease. Meneses cultures pending. Influenza testing negative. Patient is given various stories on why he needs to discharged from furniture being delivered today, to of a cousin, and a birthday libertarian as the stories have not been consistent between the health care worker he speaks to (He told me that furniture was being delivered). For TTE. ON Vancomycin with HD. Objective - Vital Signs/Intake and Output Vital Signs (last 24 hours): Temp Pulse Resp BP Pulse Ox 97.8 F 70 19 135/75 98 05/19/17 16:00 05/19/17 16:00 05/19/17 16:00 05/19/17 16:00 05/19/17 16:00 Intake and Output: 05/19/17 05/20/17 18:59 06:59 Intake Total 860 300 Balance 860 300 - Medications Medications: Current Medications Acetaminophen (Tylenol 325mg Tab) 650 mg PO Q4H PRN PRN Reason: Fever >100.4 F Alprazolam (Xanax) 0.25 mg PO TID PRN; Protocol PRN Reason: Anxiety Stop: 05/23/17 00:34 Atorvastatin Calcium (Lipitor) 10 mg PO DAILY [facility] Last Admin: 05/19/17 11:15 Dose: 10 mg Famotidine (Pepcid) 40 mg PO HS [facility] Last Admin: 05/19/17 21:43 Dose: 40 mg Heparin Sodium (Porcine) (Heparin) 5,000 units SC Q12 [facility] PRN Reason: Protocol Last Admin: 05/19/17 21:43 Dose: 5,000 units Vancomycin HCl (Vancomycin 1gm) 1 gm in 250 mls @ 167 mls/hr IVPB ONCE ONE PRN Reason: Protocol Stop: 05/20/17 11:29 Metronidazole (Flagyl) 500 mg PO Q8 [facility] Last Admin: 05/19/17 21:43 Dose: 500 mg Ondansetron HCl (Zofran Inj) 4 mg IVP Q4H PRN PRN Reason: Nausea/Vomiting - Labs Labs: 05/19/17 11:44 05/19/17 11:44 PT 12.8 SECONDS (9.4-12.5) H 05/19/17 11:44 INR 1.11 (0.93-1.08) H 05/19/17 11:44 APTT 26.7 Seconds (25.1-36.5) 05/19/17 11:44 - Constitutional Appears: Non-toxic, No Acute Distress, Chronically Ill - Head Exam Head Exam: ATRAUMATIC, NORMOCEPHALIC - Eye Exam Eye Exam: EOMI, PERRL Pupil Exam: NORMAL ACCOMODATION, PERRL - ENT Exam ENT Exam: Mucous Membranes Moist - Neck Exam Neck Exam: Full ROM, Normal Inspection - Respiratory Exam Respiratory Exam: Clear to Ausculation Bilateral, NORMAL BREATHING PATTERN. absent: Rales, Rhonchi, Wheezes - Cardiovascular Exam Cardiovascular Exam: REGULAR RHYTHM, RRR, +S1, +S2 - GI/Abdominal Exam GI & Abdominal Exam: Soft, Tenderness, Normal Bowel Sounds. absent: Distended - Extremities Exam Extremities Exam: Full ROM, Normal Inspection - Neurological Exam Neurological Exam: Alert, Awake, CN II-XII Intact, Oriented x3 - Psychiatric Exam Psychiatric exam: Normal Affect, Normal Mood - Skin Skin Exam: Intact, Normal Color Assessment and Plan - Assessment and Plan (Free Text) Assessment: 71 yo male with chills and fevers up to 103 F last night sent from HD center. Patient with ESRD on HD. Cultures in progress. On Ceftriaxone and Flagyl for antibiotic treatment at this time. No particular finding on Chest X-ray. Clinically appears better today. Afebrile today. Meneses cultures pending. No leukocytosis. Urinalysis appears mostly benign. Cannot rule out other viral etiology (noted influenza screens negative) versus bacterial sepsis. Supportive care. Continue on Rocephin and Flagyl for now as the patient is afebrile currently. Vancomycin IV with HD. HD catheter must be removed especially if Staph Aureus confirmed. Patient will need echocardiogram as well. Confirmed MRSA. Continue with Vancomycin with HD. Surgery to plan on removal of the HD catheter as graft appears to be mature. Can stop Rocephin in AM. Unable to rule out vegetation due calcified mitral value. Patient might need KELI. Thank you for allowing me to participate in the care of the patient, we will follow with you.
--- NOTE | 2017-05-20 00:10 | PN ---
DATE: 05/19/2017 SUBJECTIVE: The patient has no complaints of any chest pain or shortness of breath. He states that he feels well. PHYSICAL EXAMINATION: VITAL SIGNS: Temperature is 98.5, pulse of 85, blood pressure 101/78, respirations . GENERAL: The patient is lying in bed, flat, comfortable. HEENT: No oral lesion. Anicteric sclerae. Moist mucosa. NECK: No JVD, adenopathy, or thyromegaly. CARDIOVASCULAR: S1 and S2, regular. No murmurs, rubs, or gallops. LUNGS: Clear to auscultation bilaterally. No wheeze, rales, or rhonchi. ABDOMEN: Bowel sounds are positive, soft, nontender and nondistended. EXTREMITIES: No cyanosis, clubbing or edema. Left arm with proximal arm fistula with good thrill and bruit. LABS: White count of 3.4, hemoglobin 9.4. ASSESSMENT: 1. End-stage renal disease, on hemodialysis. 2. Sepsis secondary to methicillin-resistant Staphylococcus aureus. 3. Left arteriovenous fistula. 4. Secondary hyperparathyroidism. 5. Anxiety. 6. Dyslipidemia. 7. Diverticulosis. PLAN: The patient is currently comfortable. He is getting vancomycin. The patient will continue with getting vancomycin, on dialysis. The patient is going to have dialysis tomorrow through the fistula. If this is successful, we will plan on taking the patient's catheter out tomorrow afternoon. The patient has catheter-associated infection. The patient is on Lipitor for dyslipidemia. The patient is on heparin for DVT prophylaxis. He is on Zofran as needed. He is on Xanax for his anxiety. He is on a renal diet. I did speak to the patient's primary, Dr. Valiente, and also spoke with Dr. Barnett regarding the case. Wilmer Thomason MD [facility]
--- NOTE | 2017-05-20 04:26 | CP.PCM.PN ---
<Basilio Alexandre - Last Filed: 05/20/17 04:30> Subjective - Date & Time of Evaluation Date of Evaluation: 05/19/17 Time of Evaluation: 07:45 - Subjective Subjective: Patient seen and examined at bedside in no acute distress without any complaints. [facility] to test AV fistula before removal of temporary cath. Patient is in agreement with plan. Denies fevers, chills, cough, nausea, vomiting, diarrhea, abdominal pain, body aches, chest pain, shortness of breath, dizziness, depression. Objective - Vital Signs/Intake and Output Vital Signs (last 24 hours): Temp Pulse Resp BP Pulse Ox 97.9 F 75 20 129/52 L 98 05/20/17 00:00 05/20/17 00:00 05/20/17 00:00 05/20/17 00:00 05/20/17 00:00 Intake and Output: 05/19/17 05/20/17 18:59 06:59 Intake Total 860 300 Balance 860 300 - Medications Medications: Current Medications Acetaminophen (Tylenol 325mg Tab) 650 mg PO Q4H PRN PRN Reason: Fever >100.4 F Alprazolam (Xanax) 0.25 mg PO TID PRN; Protocol PRN Reason: Anxiety Stop: 05/23/17 00:34 Atorvastatin Calcium (Lipitor) 10 mg PO DAILY [facility] Last Admin: 05/19/17 11:15 Dose: 10 mg Famotidine (Pepcid) 40 mg PO HS [facility] Last Admin: 05/19/17 21:43 Dose: 40 mg Heparin Sodium (Porcine) (Heparin) 5,000 units SC Q12 [facility] PRN Reason: Protocol Last Admin: 05/19/17 21:43 Dose: 5,000 units Vancomycin HCl (Vancomycin 1gm) 1 gm in 250 mls @ 167 mls/hr IVPB ONCE ONE PRN Reason: Protocol Stop: 05/20/17 11:29 Metronidazole (Flagyl) 500 mg PO Q8 [facility] Last Admin: 05/19/17 21:43 Dose: 500 mg Ondansetron HCl (Zofran Inj) 4 mg IVP Q4H PRN PRN Reason: Nausea/Vomiting - Labs Labs: 05/19/17 11:44 05/19/17 11:44 PT 12.8 SECONDS (9.4-12.5) H 05/19/17 11:44 INR 1.11 (0.93-1.08) H 05/19/17 11:44 APTT 26.7 Seconds (25.1-36.5) 05/19/17 11:44 - Constitutional Appears: Non-toxic, No Acute Distress - Head Exam Head Exam: ATRAUMATIC, NORMAL INSPECTION, NORMOCEPHALIC - Eye Exam Eye Exam: EOMI, Normal appearance - ENT Exam ENT Exam: Mucous Membranes Moist, Normal Exam - Neck Exam Neck Exam: Normal Inspection - Respiratory Exam Respiratory Exam: Clear to Ausculation Bilateral, NORMAL BREATHING PATTERN. absent: Rales, Rhonchi, Wheezes - Cardiovascular Exam Cardiovascular Exam: REGULAR RHYTHM, +S1, +S2 - GI/Abdominal Exam GI & Abdominal Exam: Soft, Normal Bowel Sounds - Extremities Exam Extremities Exam: Full ROM - Back Exam Back Exam: NORMAL INSPECTION - Neurological Exam Neurological Exam: Alert, Awake, Oriented x3 - Psychiatric Exam Psychiatric exam: Normal Affect, Normal Mood - Skin Skin Exam: Intact, Normal Color, Warm Assessment and Plan - Assessment and Plan (Free Text) Assessment: 71 year old male with a past medical history significant for ESRD (HD on MWF), HTN, diverticulosis/diverticulitis, and anxiety who presented with shakes and chills from HD and met criteria for code sepsis overnight due to fever and elevated lactic acid with blood cultures positive for MRSA. Plan: Gram Positive Cocci Bacteremia -Blood cultures reveal MRSA; will receive Vancomycin IV with HD -Surgery consulted for AV fistula evaluation and HD cath removal; plan is to test trial AV fistula with dialysis on Thursday before removal of HD cath -Continue Flagyl and Rocephin -Continue Tylenol PRN for fever -Continue Zofran PRN for N/V -Daily CBC to monitor for leukocytosis -Echo ordered to rule out endocarditis; calcified mitral valve leaflets cannot exclude vegetations. Consider TTE for further evaluation ESRD on HD MWF -Renal Diet -Daily CMP and Phosphorous levels -Nephro consulted, all recommendations appreciated Normocytic Anemia -Iron studies ordered; results reveal anemia of ESRD -Haptoglobin, LDH, T bili ordered; normal -CBC with peripheral smear -Type and screened History of Anxiety -Continue home Xanax, with BP parameters added -Psych consulted, all recommendations appreciated History of HLD -Continue Lipitor GI/DVTProphylaxis: Pepcid/Heparin Patient seen and case discussed with attending, Dr. Rocco Alexandre PGY1 <Herminia Valiente - Last Filed: 05/20/17 17:32> Objective - Vital Signs/Intake and Output Vital Signs (last 24 hours): Temp Pulse Resp BP Pulse Ox 97.9 F 75 20 129/52 L 98 05/20/17 00:00 05/20/17 00:00 05/20/17 00:00 05/20/17 00:00 05/20/17 00:00 Intake and Output: 05/20/17 05/20/17 06:59 18:59 Intake Total 300 Balance 300 - Medications Medications: Current Medications Acetaminophen (Tylenol 325mg Tab) 650 mg PO Q4H PRN PRN Reason: Fever >100.4 F Alprazolam (Xanax) 0.25 mg PO TID PRN; Protocol PRN Reason: Anxiety Stop: 05/23/17 00:34 Atorvastatin Calcium (Lipitor) 10 mg PO DAILY [facility] Last Admin: 05/20/17 10:04 Dose: 10 mg Famotidine (Pepcid) 40 mg PO HS [facility] Last Admin: 05/19/17 21:43 Dose: 40 mg Heparin Sodium (Porcine) (Heparin) 5,000 units SC Q12 [facility] PRN Reason: Protocol Last Admin: 05/20/17 10:05 Dose: 5,000 units Metronidazole (Flagyl) 500 mg PO Q8 [facility] Last Admin: 05/20/17 15:24 Dose: 500 mg Ondansetron HCl (Zofran Inj) 4 mg IVP Q4H PRN PRN Reason: Nausea/Vomiting - Labs Labs: 05/20/17 07:30 05/20/17 07:30 PT 12.8 SECONDS (9.4-12.5) H 05/19/17 11:44 INR 1.11 (0.93-1.08) H 05/19/17 11:44 APTT 26.7 Seconds (25.1-36.5) 05/19/17 11:44 Attending/Attestation - Attestation I have personally seen and examined this patient.: Yes I have fully participated in the care of the patient.: Yes I have reviewed all pertinent clinical information, including history, physical exam and plan: Yes Notes (Text): I have seen and examined the patient at bedside. Agree with the above note with the following additions/ exceptions: Briefly this is 71 year old male with history of ESRD on HD, HTN, diverticulosis/ diverticulitis, anxiety, dyslipidemia who was admitted for evaluation of shakes and chills post HD and found to have MRSA bacteremia. Continue vancomycin with HD. Patient gets HD M, W and F. Awaiting surgery evaluation regarding catheter removal and if AV fistula is mature enough to be used. TTE revealed calcified MV leaflets suspicion for vegetations. Will consult inspector chief for KELI. Upon discharge patient will follow up with Dr Thomason. Dr Herminia Valiente
[2017-05-20 08:08] LABS: BASO # 0.01 K/mm3 (0.0-2.0); BASO % 0.3 % (0.0-3.0); EOS # 0.1 (0.0-0.7); GRAN # 1.43 (1.4-6.5); GRAN % 48.9 % (50.0-68.0); HEMOGLOBIN 8.7 g/dL (14.0-18.0); LYMPH # 1.1 (1.2-3.4); LYMPH % 36.5 % (22.0-35.0); MEAN CELL VOLUME 90.5 fl (80.0-105.0); MEAN CORPUSCULAR HEMOGLOBIN 29.5 pg (25.0-35.0); MEAN CORPUSCULAR HGB CONC 32.6 g/dl (31.0-37.0); MEAN PLATELET VOLUME 12.5 fl (7.0-11.0); MONO # 0.4 (0.1-0.6); MONO % 12.3 % (1.0-6.0); RBC 2.95 10^6/uL (3.5-6.1)
[2017-05-20 08:28] LABS: ALB/GLOB RATIO 1.3 (1.1-1.8); ALBUMIN 3.4 g/dL (3.0-4.8); CALCIUM 9.1 mg/dL (8.4-10.5)
[2017-05-20 08:29] LABS: WHITE BLOOD COUNT 2.9 10^3/ul (4.5-11.0)
[2017-05-20] MEDS ORDERED: Vancomycin 1gm in NS 250ml 1 GM/250 ML BAG IVPB ONE (10:00)
--- NOTE | 2017-05-20 13:04 | CP.PCM.PN ---
Subjective - Date & Time of Evaluation Date of Evaluation: 05/20/17 Time of Evaluation: 12:58 - Subjective Subjective: Surgery: Dr. Barnett Patient doing well. Agitation overnight, resolved. For HD today. All aware to use L arm AVF. Objective - Vital Signs/Intake and Output Vital Signs (last 24 hours): Temp Pulse Resp BP Pulse Ox 97.9 F 75 20 129/52 L 98 05/20/17 00:00 05/20/17 00:00 05/20/17 00:00 05/20/17 00:00 05/20/17 00:00 Intake and Output: 05/20/17 05/20/17 06:59 18:59 Intake Total 300 Balance 300 - Medications Medications: Current Medications Acetaminophen (Tylenol 325mg Tab) 650 mg PO Q4H PRN PRN Reason: Fever >100.4 F Alprazolam (Xanax) 0.25 mg PO TID PRN; Protocol PRN Reason: Anxiety Stop: 05/23/17 00:34 Atorvastatin Calcium (Lipitor) 10 mg PO DAILY [facility] Last Admin: 05/20/17 10:04 Dose: 10 mg Famotidine (Pepcid) 40 mg PO HS [facility] Last Admin: 05/19/17 21:43 Dose: 40 mg Heparin Sodium (Porcine) (Heparin) 5,000 units SC Q12 [facility] PRN Reason: Protocol Last Admin: 05/20/17 10:05 Dose: 5,000 units Metronidazole (Flagyl) 500 mg PO Q8 [facility] Last Admin: 05/20/17 05:57 Dose: 500 mg Ondansetron HCl (Zofran Inj) 4 mg IVP Q4H PRN PRN Reason: Nausea/Vomiting - Labs Labs: 05/20/17 07:30 05/20/17 07:30 PT 12.8 SECONDS (9.4-12.5) H 05/19/17 11:44 INR 1.11 (0.93-1.08) H 05/19/17 11:44 APTT 26.7 Seconds (25.1-36.5) 05/19/17 11:44 - Constitutional Appears: Non-toxic, No Acute Distress - Head Exam Head Exam: ATRAUMATIC, NORMOCEPHALIC - Eye Exam Eye Exam: EOMI, Normal appearance - ENT Exam ENT Exam: Mucous Membranes Moist - Respiratory Exam Respiratory Exam: NORMAL BREATHING PATTERN. absent: Respiratory Distress - Cardiovascular Exam Cardiovascular Exam: REGULAR RHYTHM. absent: Tachycardia Assessment and Plan - Assessment and Plan (Free Text) Assessment: 71 y/o male w/ MRSA bacteremia, left IJ permacath and left arm AVF Plan: -ok to use left arm AVF -will remove permacath bedside tomorrow once HD attempted and successful through AVF -cont abx -d/w Dr. Barnett [facility] PGY3
--- NOTE | 2017-05-20 15:10 | CP.PCM.PN ---
<Basilio Alexandre - Last Filed: 05/20/17 15:11> Subjective - Date & Time of Evaluation Date of Evaluation: 05/20/17 Time of Evaluation: 15:06 - Subjective Subjective: Patient seen and examined at bedside with no complaints and in no acute distress. Discussed with patient echo findings. Patient is aware with plan for KELI in the morning with Dr. Sorto. Will have dialysis today with AV fistula. Denies shortness of breath, chest pain, nausea, vomiting, diarrhea, headache, cough, fevers, chills. Objective - Vital Signs/Intake and Output Vital Signs (last 24 hours): Temp Pulse Resp BP Pulse Ox 97.9 F 75 20 129/52 L 98 05/20/17 00:00 05/20/17 00:00 05/20/17 00:00 05/20/17 00:00 05/20/17 00:00 Intake and Output: 05/20/17 05/20/17 06:59 18:59 Intake Total 300 Balance 300 - Medications Medications: Current Medications Acetaminophen (Tylenol 325mg Tab) 650 mg PO Q4H PRN PRN Reason: Fever >100.4 F Alprazolam (Xanax) 0.25 mg PO TID PRN; Protocol PRN Reason: Anxiety Stop: 05/23/17 00:34 Atorvastatin Calcium (Lipitor) 10 mg PO DAILY [facility] Last Admin: 05/20/17 10:04 Dose: 10 mg Famotidine (Pepcid) 40 mg PO HS [facility] Last Admin: 05/19/17 21:43 Dose: 40 mg Heparin Sodium (Porcine) (Heparin) 5,000 units SC Q12 [facility] PRN Reason: Protocol Last Admin: 05/20/17 10:05 Dose: 5,000 units Metronidazole (Flagyl) 500 mg PO Q8 [facility] Last Admin: 05/20/17 05:57 Dose: 500 mg Ondansetron HCl (Zofran Inj) 4 mg IVP Q4H PRN PRN Reason: Nausea/Vomiting - Labs Labs: 05/20/17 07:30 05/20/17 07:30 PT 12.8 SECONDS (9.4-12.5) H 05/19/17 11:44 INR 1.11 (0.93-1.08) H 05/19/17 11:44 APTT 26.7 Seconds (25.1-36.5) 05/19/17 11:44 - Constitutional Appears: Non-toxic, No Acute Distress - Head Exam Head Exam: ATRAUMATIC, NORMAL INSPECTION, NORMOCEPHALIC - Eye Exam Eye Exam: EOMI, Normal appearance - ENT Exam ENT Exam: Mucous Membranes Moist, Normal Exam - Neck Exam Neck Exam: Normal Inspection - Respiratory Exam Respiratory Exam: Clear to Ausculation Bilateral, NORMAL BREATHING PATTERN. absent: Rhonchi, Wheezes - Cardiovascular Exam Cardiovascular Exam: REGULAR RHYTHM, +S1, +S2 - GI/Abdominal Exam GI & Abdominal Exam: Soft, Normal Bowel Sounds - Neurological Exam Neurological Exam: Alert, Awake, Oriented x3 - Psychiatric Exam Psychiatric exam: Normal Affect, Normal Mood - Skin Skin Exam: Intact, Normal Color, Warm Assessment and Plan - Assessment and Plan (Free Text) Assessment: 71 year old male with a past medical history significant for ESRD (HD on MWF), HTN, diverticulosis/diverticulitis, and anxiety who presented with shakes and chills from HD and met criteria for code sepsis overnight due to fever and elevated lactic acid with blood cultures positive for MRSA. Plan: Gram Positive Cocci Bacteremia -Blood cultures reveal MRSA; continuing to receive Vancomycin IV with HD -Surgery consulted for AV fistula evaluation and HD cath removal; will see how dialysis with AV fistula goes today before removal of HD cath -Continue Flagyl and Rocephin -Continue Tylenol PRN for fever -Continue Zofran PRN for N/V -Echo ordered to rule out endocarditis; calcified mitral valve leaflets cannot exclude vegetations. Will have KELI done in morning for further evaluation. -Patient currently NPO ESRD on HD MWF -Renal diet, NPO after midnight -Daily CMP and Phosphorous levels -Nephro consulted, all recommendations appreciated Normocytic Anemia -Iron studies ordered; results reveal anemia of ESRD -Haptoglobin, LDH, T bili ordered; normal -CBC with peripheral smear -Type and screened History of Anxiety -Continue home Xanax, with BP parameters added -Psych consulted, all recommendations appreciated History of HLD -Continue Lipitor GI/DVTProphylaxis: Pepcid/Heparin Patient seen and case discussed with attending, Dr. Rocco Alexandre PGY1 <Herminia Valiente - Last Filed: 05/20/17 17:39> Objective - Vital Signs/Intake and Output Vital Signs (last 24 hours): Temp Pulse Resp BP Pulse Ox 97.9 F 75 20 129/52 L 98 05/20/17 00:00 05/20/17 00:00 05/20/17 00:00 05/20/17 00:00 05/20/17 00:00 Intake and Output: 05/20/17 05/20/17 06:59 18:59 Intake Total 300 Balance 300 - Medications Medications: Current Medications Acetaminophen (Tylenol 325mg Tab) 650 mg PO Q4H PRN PRN Reason: Fever >100.4 F Alprazolam (Xanax) 0.25 mg PO TID PRN; Protocol PRN Reason: Anxiety Stop: 05/23/17 00:34 Atorvastatin Calcium (Lipitor) 10 mg PO DAILY [facility] Last Admin: 05/20/17 10:04 Dose: 10 mg Famotidine (Pepcid) 40 mg PO HS [facility] Last Admin: 05/19/17 21:43 Dose: 40 mg Heparin Sodium (Porcine) (Heparin) 5,000 units SC Q12 [facility] PRN Reason: Protocol Last Admin: 05/20/17 10:05 Dose: 5,000 units Metronidazole (Flagyl) 500 mg PO Q8 [facility] Last Admin: 05/20/17 15:24 Dose: 500 mg Ondansetron HCl (Zofran Inj) 4 mg IVP Q4H PRN PRN Reason: Nausea/Vomiting - Labs Labs: 05/20/17 07:30 05/20/17 07:30 PT 12.8 SECONDS (9.4-12.5) H 05/19/17 11:44 INR 1.11 (0.93-1.08) H 05/19/17 11:44 APTT 26.7 Seconds (25.1-36.5) 05/19/17 11:44 Attending/Attestation - Attestation I have personally seen and examined this patient.: Yes I have fully participated in the care of the patient.: Yes I have reviewed all pertinent clinical information, including history, physical exam and plan: Yes Notes (Text): I have seen and examined the patient at bedside. Agree with the above note with the following additions/ exceptions: Briefly this is 71 year old male with history of ESRD on HD, HTN, diverticulosis/ diverticulitis, anxiety, dyslipidemia who was admitted for evaluation of shakes and chills post HD and found to have MRSA bacteremia. Continue vancomycin with HD. Patient gets HD M, W and F. Surgery consult appreciated. Plan to attempt HD thru AV fistula today and if successful then surgeons will remove permacath tomorrow. Patient denies any complaints. He has been afebrile. He was given results of his labs and discussed plan with him. Also informed him regarding plan for KELI to rule out vegetation as TTE revealed calcified MV leaflets. Upon discharge patient will follow up with Dr Thomason. Dr Herminia Valiente
[2017-05-20] MEDS ORDERED: Lidocaine 1%/Epinephrine 1:100000 30 ml vial IJ ONE (16:43)
--- NOTE | 2017-05-20 16:46 | CP.PCM.PN ---
Subjective - Date & Time of Evaluation Date of Evaluation: 05/20/17 Time of Evaluation: 15:15 - Subjective Subjective: Infectious Disease Follow Up: May 20, 2017 71 yo male with sudden shakes and chills at HD. Sent to [facility] for [place]. Medical History includes ESRD on HD, HTN, Diverticulosis, and Anxiety. The patient is a poor historian. Fevers of 103.3 F here at [facility]. Patient was on Cipro and Flagyl prescribed to him from ER here on 05/06/2017 for diverticulitis diagnosed through CT scan. On Cefriaxone currently. Given Vancomycin IV in ER and to continue now with HD doses given the FISH analysis suggesting MRSA. Chest X-ray now shows no active disease. Meneses cultures pending. Influenza testing negative. Patient is given various stories on why he needs to discharged from furniture being delivered today, to of a cousin, and a birthday libertarian as the stories have not been consistent between the health care worker he speaks to (He told me that furniture was being delivered). For TTE. On Vancomycin with HD. Received Vancomycin IV dose today. Objective - Vital Signs/Intake and Output Vital Signs (last 24 hours): Temp Pulse Resp BP Pulse Ox 97.9 F 75 20 129/52 L 98 05/20/17 00:00 05/20/17 00:00 05/20/17 00:00 05/20/17 00:00 05/20/17 00:00 Intake and Output: 05/20/17 05/20/17 06:59 18:59 Intake Total 300 Balance 300 - Medications Medications: Current Medications Acetaminophen (Tylenol 325mg Tab) 650 mg PO Q4H PRN PRN Reason: Fever >100.4 F Alprazolam (Xanax) 0.25 mg PO TID PRN; Protocol PRN Reason: Anxiety Stop: 05/23/17 00:34 Atorvastatin Calcium (Lipitor) 10 mg PO DAILY [facility] Last Admin: 05/20/17 10:04 Dose: 10 mg Famotidine (Pepcid) 40 mg PO HS [facility] Last Admin: 05/19/17 21:43 Dose: 40 mg Heparin Sodium (Porcine) (Heparin) 5,000 units SC Q12 MARIS PRN Reason: Protocol Last Admin: 05/20/17 10:05 Dose: 5,000 units Metronidazole (Flagyl) 500 mg PO Q8 [facility] Last Admin: 05/20/17 15:24 Dose: 500 mg Ondansetron HCl (Zofran Inj) 4 mg IVP Q4H PRN PRN Reason: Nausea/Vomiting - Labs Labs: 05/20/17 07:30 05/20/17 07:30 PT 12.8 SECONDS (9.4-12.5) H 05/19/17 11:44 INR 1.11 (0.93-1.08) H 05/19/17 11:44 APTT 26.7 Seconds (25.1-36.5) 05/19/17 11:44 - Constitutional Appears: Non-toxic, No Acute Distress, Chronically Ill - Head Exam Head Exam: ATRAUMATIC, NORMOCEPHALIC - Eye Exam Eye Exam: EOMI, PERRL Pupil Exam: NORMAL ACCOMODATION, PERRL - ENT Exam ENT Exam: Mucous Membranes Moist, Normal External Ear Exam, TM's Normal Bilaterally - Neck Exam Neck Exam: Full ROM, Normal Inspection - Respiratory Exam Respiratory Exam: Clear to Ausculation Bilateral, NORMAL BREATHING PATTERN. absent: Rales, Rhonchi, Wheezes - Cardiovascular Exam Cardiovascular Exam: REGULAR RHYTHM, RRR, +S1, +S2 - GI/Abdominal Exam GI & Abdominal Exam: Soft, Normal Bowel Sounds. absent: Distended, Tenderness - Extremities Exam Extremities Exam: Full ROM, Normal Inspection - Neurological Exam Neurological Exam: Alert, Awake, CN II-XII Intact, Oriented x3 - Psychiatric Exam Psychiatric exam: Normal Affect, Normal Mood - Skin Skin Exam: Intact, Normal Color Assessment and Plan - Assessment and Plan (Free Text) Assessment: 71 yo male with chills and fevers up to 103 F last night sent from HD center. Patient with ESRD on HD. Cultures in progress. On Ceftriaxone and Flagyl for antibiotic treatment at this time. No particular finding on Chest X-ray. Clinically appears better today. Afebrile today. Meneses cultures pending. No leukocytosis. Urinalysis appears mostly benign. Cannot rule out other viral etiology (noted influenza screens negative) versus bacterial sepsis. Supportive care. Continue Flagyl for now as the patient is afebrile currently. Vancomycin IV with HD. HD catheter must be removed especially if Staph Aureus confirmed. Patient will need echocardiogram as well. Confirmed MRSA. Continue with Vancomycin with HD. Surgery to plan on removal of the HD catheter as graft appears to be mature. Received Vancomycin dose on 05/20/2017. Unable to rule out vegetation due calcified mitral value. Patient might need KELI. Thank you for allowing me to participate in the care of the patient, we will follow with you.
--- NOTE | 2017-05-20 19:01 | CP.PCM.PN ---
Subjective - Date & Time of Evaluation Date of Evaluation: 05/20/17 Time of Evaluation: 18:45 - Subjective Subjective: Patient seen and examined at bedside. No adverse events. Patient denies fevers, chills, chest pain. Objective - Vital Signs/Intake and Output Vital Signs (last 24 hours): Temp Pulse Resp BP Pulse Ox 97.9 F 75 20 129/52 L 98 05/20/17 00:00 05/20/17 00:00 05/20/17 00:00 05/20/17 00:00 05/20/17 00:00 - Medications Medications: Current Medications Acetaminophen (Tylenol 325mg Tab) 650 mg PO Q4H PRN PRN Reason: Fever >100.4 F Alprazolam (Xanax) 0.25 mg PO TID PRN; Protocol PRN Reason: Anxiety Stop: 05/23/17 00:34 Atorvastatin Calcium (Lipitor) 10 mg PO DAILY [facility] Last Admin: 05/20/17 10:04 Dose: 10 mg Famotidine (Pepcid) 40 mg PO HS [facility] Last Admin: 05/19/17 21:43 Dose: 40 mg Heparin Sodium (Porcine) (Heparin) 5,000 units SC Q12 MARIS PRN Reason: Protocol Last Admin: 05/20/17 10:05 Dose: 5,000 units Metronidazole (Flagyl) 500 mg PO Q8 [facility] Last Admin: 05/20/17 15:24 Dose: 500 mg Ondansetron HCl (Zofran Inj) 4 mg IVP Q4H PRN PRN Reason: Nausea/Vomiting - Labs Labs: 05/20/17 07:30 05/20/17 07:30 PT 12.8 SECONDS (9.4-12.5) H 05/19/17 11:44 INR 1.11 (0.93-1.08) H 05/19/17 11:44 APTT 26.7 Seconds (25.1-36.5) 05/19/17 11:44 - Constitutional Appears: Non-toxic, No Acute Distress - Head Exam Head Exam: ATRAUMATIC, NORMOCEPHALIC - Eye Exam Eye Exam: Normal appearance. absent: Conjunctival injection, Scleral icterus - ENT Exam ENT Exam: Mucous Membranes Moist, Normal Oropharynx - Respiratory Exam Respiratory Exam: NORMAL BREATHING PATTERN. absent: Accessory Muscle Use, Respiratory Distress - Cardiovascular Exam Cardiovascular Exam: RRR - GI/Abdominal Exam GI & Abdominal Exam: Soft. absent: Distended - Extremities Exam Extremities Exam: absent: Calf Tenderness, Pedal Edema - Neurological Exam Neurological Exam: Alert, Awake, Oriented x3 - Psychiatric Exam Psychiatric exam: Normal Affect, Normal Mood - Skin Skin Exam: Dry, Intact, Normal Color, Warm Additional comments: tunneled permacath in the left internal jugular vein with no surrounding erythema, bleeding, or drainage Assessment and Plan - Assessment and Plan (Free Text) Assessment: 71M with bacteremia and suspicion for permacath as nidus of infection Plan: -Remove permacath in the left internal jugular vein at bedside -Culture permacath -Follow up with Dr. Barnett in his office in 3 weeks for evaluation of AV fistula -Call PMD, Dr. Barnett, or come to the ER for erythema, swelling, or bleeding from the permacath removal site or any other concerning symptoms. Thank you for this consult Seen and discussed with Dr. Anibal Marie PGY2
--- NOTE | 2017-05-20 19:14 | PCM.OP ---
Operative Report - Operative Report Date of Surgery/Procedure: 05/20/17 Time of Surgery/Procedure: 18:30 Surgeon: Dr. Barnett A&P Mechanic: Jennie Marie PGY2 Anesthesia/Sedation: Local anesthesia: 1% lidocaine with epinephrine Pre-Operative Diagnosis: infected permacath left internal jugular vein Post-Operative Diagnosis: same Indication for Surgery: bacteremia Operative Findings: intact tunneled permacath in the left internal jugular vein removed, hemostasis acheived Procedure/Operation Description: Removal of tunelled permacath in the left internal jugular vein Estimated Blood Loss: 1cc Complications: none Specimen: tunelled permacath tip for culture Discharge & Condition: Patient tolerated the procedure well with no complications
--- NOTE | 2017-05-20 22:04 | CON ---
DATE: SERVICE: Cardiology. REASON FOR CONSULTATION: KELI to rule out endocarditis. BRIEF CLINICAL HISTORY: This is a 71-year-old male with past medical history of end-stage renal disease, sepsis secondary to MRSA, he is status post left arm AV shunt, secondary hyperparathyroidism, anxiety disorder, dyslipidemia, diverticular colonic disease; admitted with sepsis and UTI. Blood culture is growing with methicillin-resistant Staphylococcus aureus. Cardiology consult was called for KELI. Patient denies any chest pain, shortness of breath, or any palpitations. PAST MEDICAL HISTORY: Significant for end-stage renal disease, on dialysis on Thursday, Thursday and Thursday; diverticular colonic disease, diverticulitis, and anxiety disorder. History of left shunt AV fistula, left arm. PAST SURGICAL HISTORY: Significant for AV fistula in the left arm. SOCIAL HISTORY: Denies any smoking. Denies any history of alcohol. Denies any substance abuse. ALLERGIES: NO KNOWN DRUG ALLERGIES. RECENT CARDIAC WORKUP: Patient had an echocardiography on 05/19/2017, yesterday, shows dilated LA, normal LV size, mild global hypokinesis, calcified mitral valve, cannot exclude vegetation, mild MR, mild TR. REVIEW OF SYSTEMS: As per HPI. PHYSICAL EXAMINATION: VITAL SIGNS: Temperature is afebrile, heart rate 75, and blood pressure 135/75. HEENT: PERRLA, intact. NECK: Supple. No carotid bruits or thyromegaly. CHEST: Clear to auscultation. HEART: S1 and S2 regular. ABDOMEN: Soft. EXTREMITIES: Clubbing and cyanosis, negative. LABORATORY DATA: Blood workup: WBC 2.9, hemoglobin 8.6, hematocrit 26.7, platelet count 77. Chemistry shows sodium 138, potassium , chloride 99, carbon dioxide 25, anion gap of 18, BUN 43, and creatinine 8.7. A blood culture, MRSA positive. ASSESSMENT: Blood culture positive; calcified mitral valve, cannot rule out vegetation; methicillin-resistant Staphylococcus aureus positive; end-stage renal disease, on dialysis; arteriovenous shunt; hypertension; and hyperlipidemia. RECOMMENDATIONS: We will schedule KELI in the morning. Further recommendation after the KELI. We will follow with you. Thank you, , for providing us the opportunity in taking care of Сергей Aleman. We will keep n.p.o. We will do the KELI in the morning. Ginny Sorto MD
[2017-05-21 07:51] VITALS: RESP 18; TEMP 98.4
[2017-05-21 08:29] LABS: BASO # 0.03 K/mm3 (0.0-2.0); BASO % 0.8 % (0.0-3.0); EOS % 1.1 % (1.5-5.0); GRAN # 1.82 (1.4-6.5); GRAN % 50.7 % (50.0-68.0); HEMOGLOBIN 9.3 g/dL (14.0-18.0); LYMPH # 1.4 (1.2-3.4); MEAN CELL VOLUME 91.3 fl (80.0-105.0); MEAN CORPUSCULAR HGB CONC 31.7 g/dl (31.0-37.0); MEAN PLATELET VOLUME 11.7 fl (7.0-11.0); MONO # 0.3 (0.1-0.6); MONO % 8.4 % (1.0-6.0); RBC 3.21 10^6/uL (3.5-6.1); RED CELL DISTRIBUTION WIDTH 13.9 % (11.5-14.5); WHITE BLOOD COUNT 3.6 10^3/ul (4.5-11.0)
[2017-05-21 08:48] LABS: ALB/GLOB RATIO 1.3 (1.1-1.8); ALBUMIN 3.6 g/dL (3.0-4.8)
--- NOTE | 2017-05-21 09:44 | CP.PCM.PN ---
Subjective - Date & Time of Evaluation Date of Evaluation: 05/21/17 Time of Evaluation: 09:41 - Subjective Subjective: General surgery progress note for Dr. Barnett Patient seen and examined at bedside. Patient tolerated permacath removal last night well. Patient denies fevers, chills, nausea, vomiting, and diarrhea, as well as pain. No further complaints at this time. Objective - Vital Signs/Intake and Output Vital Signs (last 24 hours): Temp Pulse Resp BP Pulse Ox 98.4 F 60 18 103/60 96 05/21/17 07:49 05/21/17 07:49 05/21/17 07:49 05/21/17 07:49 05/21/17 07:49 Intake and Output: 05/21/17 05/21/17 06:59 18:59 Intake Total 780 Output Total 3 Balance 777 - Medications Medications: Current Medications Acetaminophen (Tylenol 325mg Tab) 650 mg PO Q4H PRN PRN Reason: Fever >100.4 F Alprazolam (Xanax) 0.25 mg PO TID PRN; Protocol PRN Reason: Anxiety Stop: 05/23/17 00:34 Atorvastatin Calcium (Lipitor) 10 mg PO DAILY [facility] Last Admin: 05/21/17 09:31 Dose: 10 mg Famotidine (Pepcid) 40 mg PO HS [facility] Last Admin: 05/20/17 21:28 Dose: 40 mg Heparin Sodium (Porcine) (Heparin) 5,000 units SC Q12 MARIS PRN Reason: Protocol Last Admin: 05/21/17 09:31 Dose: Not Given Metronidazole (Flagyl) 500 mg PO Q8 [facility] Last Admin: 05/21/17 06:30 Dose: Not Given Ondansetron HCl (Zofran Inj) 4 mg IVP Q4H PRN PRN Reason: Nausea/Vomiting - Labs Labs: 05/21/17 08:00 05/21/17 08:00 PT 12.8 SECONDS (9.4-12.5) H 05/19/17 11:44 INR 1.11 (0.93-1.08) H 05/19/17 11:44 APTT 26.7 Seconds (25.1-36.5) 05/19/17 11:44 - Constitutional Appears: Well - Head Exam Head Exam: ATRAUMATIC, NORMAL INSPECTION, NORMOCEPHALIC - Eye Exam Eye Exam: EOMI, Normal appearance, PERRL Pupil Exam: NORMAL ACCOMODATION, PERRL - ENT Exam ENT Exam: Mucous Membranes Moist, Normal Exam - Neck Exam Neck Exam: Full ROM, Normal Inspection. absent: Lymphadenopathy - Respiratory Exam Respiratory Exam: Clear to Ausculation Bilateral, NORMAL BREATHING PATTERN - Cardiovascular Exam Cardiovascular Exam: REGULAR RHYTHM, +S1, +S2. absent: Murmur Additional comments: Incision site is c/d/i - GI/Abdominal Exam GI & Abdominal Exam: Soft, Normal Bowel Sounds. absent: Tenderness - Rectal Exam Rectal Exam: NORMAL INSPECTION - Extremities Exam Extremities Exam: Full ROM, Normal Capillary Refill, Normal Inspection. absent : Joint Swelling, Pedal Edema - Back Exam Back Exam: NORMAL INSPECTION - Neurological Exam Neurological Exam: Alert, Awake, CN II-XII Intact, Normal Gait, Oriented x3 - Psychiatric Exam Psychiatric exam: Normal Affect, Normal Mood - Skin Skin Exam: Dry, Intact, Normal Color, Warm Assessment and Plan - Assessment and Plan (Free Text) Assessment: 71M with bacteremia and suspicion for permacath as nidus of infection, permacth removed yesterday Plan: - Permacath removed at bedside yesterday - Follow up permacath culture - Follow up with Dr. Barnett in his office in 3 weeks for evaluation of AV fistula - Call PMD, Dr. Barnett, or come to the ER for erythema, swelling, or bleeding from the permacath removal site or any other concerning symptoms. - At this time, no further surgical intervention necessary
[2017-05-21] MEDS ORDERED: Midazolam 2 MG/2 ML VIAL ONE (12:06)
[2017-05-21] MEDS ORDERED: Naloxone 0.4 mg/ml Inj (Adult) ONE (12:07)
[2017-05-21] MEDS ORDERED: Flumazenil 0.1 mg/ml Inj (5ml) IVP ONE (12:07)
[2017-05-21] MEDS ORDERED: Lidocaine 2% Jelly (30 ml) ONE (12:07)
--- NOTE | 2017-05-21 12:26 | CP.PCM.PCO ---
Physician Communication Note - Physician Communication Note Physician Communication Note: Examined this AM. No bleeding from incision. Clear for D/C w/antibiotics
[2017-05-21] MEDS ORDERED: Midazolam 2 MG/2 ML VIAL IV ONE ×3 (12:27→12:31)
[2017-05-21] MEDS ORDERED: Sodium Chloride 0.9% 1,000 ML IV SCH (13:00)
[2017-05-21 13:34] VITALS: BP 118/58; PULSE 76; O2SAT 96
--- NOTE | 2017-05-21 15:06 | CP.PCM.DIS ---
Provider - Provider Date of Admission: 05/15/17 22:08 Attending physician: Herminia Valiente MD Primary care physician: Wilmer Thomason MD Consults: General Surgery: Dr. Zepeda Nephrology: Dr. Ramirez Infectious Disease: Dr. Martinez Time Spent in preparation of Discharge (in minutes): 45 Hospital Course - Lab Results Lab Results: Micro Results 05/18/17 12:00 Blood-During Dialysis Blood Culture - Preliminary NO GROWTH AFTER 3 DAYS Most Recent Lab Values WBC 3.6 10^3/ul (4.5-11.0) L D 05/21/17 08:00 RBC 3.21 10^6/uL (3.5-6.1) L 05/21/17 08:00 Hgb 9.3 g/dL (14.0-18.0) L 05/21/17 08:00 Hct 29.3 % (42.0-52.0) L 05/21/17 08:00 MCV 91.3 fl (80.0-105.0) 05/21/17 08:00 MCH 29.0 pg (25.0-35.0) 05/21/17 08:00 MCHC 31.7 g/dl (31.0-37.0) 05/21/17 08:00 RDW 13.9 % (11.5-14.5) 05/21/17 08:00 Plt Count 79 10^3/uL (120.0-450.0) L 05/21/17 08:00 MPV 11.7 fl (7.0-11.0) H 05/21/17 08:00 Gran % 50.7 % (50.0-68.0) 05/21/17 08:00 Lymph % (Auto) 39.0 % (22.0-35.0) H 05/21/17 08:00 [place] % (Auto) 8.4 % (1.0-6.0) H 05/21/17 08:00 Eos % (Auto) 1.1 % (1.5-5.0) L 05/21/17 08:00 Baso % (Auto) 0.8 % (0.0-3.0) 05/21/17 08:00 Gran # 1.82 (1.4-6.5) 05/21/17 08:00 Lymph # (Auto) 1.4 (1.2-3.4) 05/21/17 08:00 [place] # (Auto) 0.3 (0.1-0.6) 05/21/17 08:00 Eos # (Auto) 0.0 (0.0-0.7) 05/21/17 08:00 Baso # (Auto) 0.03 K/mm3 (0.0-2.0) 05/21/17 08:00 Retic Count 1.24 % (0.5-1.5) 05/18/17 20:00 Haptoglobin 267 mg/dL (43-212) H 05/18/17 21:14 PT 12.8 SECONDS (9.4-12.5) H 05/19/17 11:44 INR 1.11 (0.93-1.08) H 05/19/17 11:44 APTT 26.7 Seconds (25.1-36.5) 05/19/17 11:44 pO2 48 mm/Hg (30-55) 05/16/17 00:05 VBG pH 7.44 (7.32-7.43) H 05/16/17 00:05 VBG pCO2 40.0 (40-60) 05/16/17 00:05 VBG HCO3 27.2 mmol/l (21-28) 05/16/17 00:05 VBG Total CO2 28.4 mmol.L (22-28) H 05/16/17 00:05 VBG O2 Sat (Calc) 88.9 % (40-65) H 05/16/17 00:05 VBG Base Excess 2.8 mmol/L (0.0-2.0) H 05/16/17 00:05 VBG Potassium 4.1 mmol/L (3.6-5.2) 05/16/17 00:05 Sodium 136.0 mmol/L (132-148) 05/16/17 00:05 Chloride 102.0 mmol/L (98-107) 05/16/17 00:05 Glucose 140 mg/dl (75-110) H 05/16/17 00:05 Lactate 1.2 mmol/L (0.7-2.1) 05/16/17 00:05 FiO2 21.0 % 05/16/17 00:05 Sodium 139 mmol/L (132-148) 05/21/17 08:00 Potassium 3.7 mmol/L (3.6-5.0) 05/21/17 08:00 Chloride 99 mmol/L (98-107) 05/21/17 08:00 Carbon Dioxide 28 mmol/L (21-33) 05/21/17 08:00 Anion Gap 16 (10-20) 05/21/17 08:00 BUN 28 mg/dL (7-21) H 05/21/17 08:00 Creatinine 6.9 mg/dl (0.8-1.5) H 05/21/17 08:00 Est GFR ( Amer) 10 05/21/17 08:00 Est GFR (Non-Af Amer) 8 05/21/17 08:00 POC Glucose (mg/dL) 84 mg/dL (65-110) 05/15/17 19:05 Random Glucose 102 mg/dL (70-110) 05/21/17 08:00 Calcium 9.0 mg/dL (8.4-10.5) 05/21/17 08:00 Phosphorus 4.6 mg/dL (2.5-4.5) H 05/18/17 06:30 Iron 43 ug/dL (45-180) L 05/18/17 21:14 TIBC 168 ug/dL (261-462) L 05/18/17 21:14 % Saturation 25 % (20-55) 05/18/17 21:14 Ferritin 1810.0 ng/mL 05/18/17 21:14 Total Bilirubin 0.7 mg/dL (0.2-1.3) 05/21/17 08:00 Direct Bilirubin 0.0 mg/dL (0.0-0.4) 05/18/17 21:14 AST 39 U/L (17-59) 05/21/17 08:00 ALT 34 U/L (7-56) 05/21/17 08:00 Alkaline Phosphatase 74 U/L (38-126) 05/21/17 08:00 Lactate Dehydrogenase 429 U/L (333-699) 05/18/17 21:14 Total Creatine Kinase 56 U/L (35-230) 05/15/17 19:10 Troponin I < 0.01 ng/mL 05/15/17 19:10 Total Protein 6.3 g/dL (5.8-8.3) 05/21/17 08:00 Albumin 3.6 g/dL (3.0-4.8) 05/21/17 08:00 Globulin 2.7 gm/dL 05/21/17 08:00 Albumin/Globulin Ratio 1.3 (1.1-1.8) 05/21/17 08:00 Vitamin B12 901 pg/mL (239-931) 05/18/17 21:14 Folate 6.3 ng/mL 05/18/17 21:14 Venous Blood Potassium 4.1 mmol/L (3.6-5.2) 05/16/17 00:05 Urine Color Light yellow (YELLOW) 05/15/17 19:50 Urine Appearance Clear (CLEAR) 05/15/17 19:50 Urine pH 8.5 (4.7-8.0) 05/15/17 19:50 Ur Specific [place] 1.020 (1.005-1.035) 05/15/17 19:50 Urine Protein 100 mg/dL (<30 mg/dL) H 05/15/17 19:50 Urine Glucose (UA) 250 mg/dL (NEGATIVE) H 05/15/17 19:50 Urine Ketones Negative mg/dL (NEGATIVE) 05/15/17 19:50 Urine Blood Trace-intact (NEGATIVE) H 05/15/17 19:50 Urine Nitrate Negative (NEGATIVE) 05/15/17 19:50 Urine Bilirubin Negative (NEGATIVE) 05/15/17 19:50 Urine Urobilinogen 0.2 E.U./dL (<1 E.U./dL) 05/15/17 19:50 Ur Leukocyte Esterase Negative Evelyne/uL (NEGATIVE) 05/15/17 19:50 Urine RBC 0 - 2 /hpf (0-2) 05/15/17 19:50 Urine WBC 0 - 2 /hpf (0-6) 05/15/17 19:50 Ur Epithelial Cells None /hpf (0-5) 05/15/17 19:50 Amorphous Sediment Moderate 05/15/17 19:50 Urine Bacteria Large (NEG) 05/15/17 19:50 Influenza Typ A,B (EIA) Negative for flu a/b (NEGATIVE) 05/15/17 19:10 Blood Type A NEGATIVE 02/12/18 21:14 Blood Type Confirm A NEGATIVE 05/18/17 21:46 Antibody Screen Negative 05/18/17 21:14 BBK History Checked No verified bt 05/18/17 21:14 Discharge Exam - Head Exam Head Exam: ATRAUMATIC, NORMAL INSPECTION, NORMOCEPHALIC Discharge Plan - Discharge Medications Prescriptions: Vancomycin [Vancomycin Inj] 1 gm IV DAILY 42 Days vial - Follow Up Plan Condition: FAIR Disposition: HOME/ ROUTINE Instructions: Pneumonia in Adults, Smoking: Not Just Harmful to Your Lungs and Heart, Influenza Virus Vaccine (Recombinant), Urinary Tract Infection in Women ( DC), Urinary Tract Infection in Men (DC), Sepsis (ED), Dysuria (GEN) Additional Instructions: 1. Please follow up with your PMD within 3-5 days. 2. You will be receiving antibiotics for treatment of endocarditis through dialysis for 6 weeks as previously discussed. 3. If symptoms worsen or return please do not hesitate to go to the emergency department. Referrals: Wilmer Thomason MD [Primary Care Provider] -
--- NOTE | 2017-05-21 15:49 | CARD ---
APPROVED REPORT EXAM: Transesophageal echocardiogram with color flow Doppler. INDICATION Infection : Rule out subacute bacterial endocarditis Reason For Test : Rule out endocarditis. PROCEDURE After obtaining informed consent, patient underwent transesophageal echo in the Echo Lab. Type of Sedation : Conscious Sedation Sedation was administered by . Sedation was achieved with Versed and , Fentanyl 2mg and 100 mcg intravenously. Transesophageal probe was inserted and advanced into esophagus without difficulty. Echo enhancement indication: R/O Septal defect. Echo enhancement agent administered: Agitated Saline The KELI was performed without complications. Throughout the procedure, the blood pressure, pulse oximetry, cardiac rhythm, and rate were monitored. The patient tolerated the procedure without adverse effects. Recovery from conscious sedation was uneventful and vital signs were stable. LEFT VENTRICLE The Left Ventricle is borderline dilated. There is mild left ventricular hypertrophy. Left ventricle systolic function is borderline.EF-50% There is normal LV segmental wall motion. The left ventricular diastolic function is normal. No left ventricle thrombus noted on this study. There is no ventricular septal defect visualized. There is no left ventricular aneurysm. There is no mass noted in the left ventricle. RIGHT VENTRICLE The right ventricle is normal size. There is normal right ventricular wall thickness. The right ventricular systolic function is normal. ATRIA The left atrium is moderately dilated. The right atrium is mildly dilated. The interatrial septum is intact with no evidence for an atrial septal defect. AORTIC VALVE The aortic valve is mildly thickened.Echogenic Mobile structure noted C/w Vegetation There is mild aortic regurgitation. There is no aortic valvular stenosis. There is no aortic valvular vegetation. MITRAL VALVE Mitral annular calcification is mild. The mitral valve leaflets are thickened. There is no evidence of mitral valve prolapse. There is no mitral valve stenosis. Mitral regurgitation is moderate. TRICUSPID VALVE The tricuspid valve leaflets display thickening. There is mild tricuspid regurgitation. There is no tricuspid valve prolapse or vegetation. There is no tricuspid valve stenosis. PULMONIC VALVE The pulmonary valve is normal in structure. There is trace to mild pulmonic valvular regurgitation. There is no pulmonic valvular stenosis. GREAT VESSELS The aortic root is normal in size. The ascending aorta is normal in size. The pulmonary artery is normal. The IVC is normal in size and collapses >50% with inspiration. PERICARDIAL EFFUSION There is no pericardial effusion. There is no pleural effusion. <Conclusion> The Left Ventricle is borderline dilated. There is mild left ventricular hypertrophy. Left ventricle systolic function is borderline.EF-50% The aortic valve is mildly thickened.Echogenic Mobile structure noted C/w Vegetation There is mild aortic regurgitation. There is no evidence of mitral valve prolapse. Mitral regurgitation is moderate. There is mild tricuspid regurgitation. Velocity in ZARINA.0.4 m/s Mild plaque in descending aorta Aortic valve endocarditis
--- NOTE | 2017-05-21 18:19 | CP.PCM.PN ---
Subjective - Date & Time of Evaluation Date of Evaluation: 05/21/17 Time of Evaluation: 17:30 - Subjective Subjective: Infectious Disease Follow Up: May 21, 2017 71 yo male with sudden shakes and chills at HD. [place] [facility] [place] Medical History includes ESRD on HD, HTN, Diverticulosis, and Anxiety. The patient is a poor historian. Fevers of 103.3 F [place] [facility] Patient was on Cipro and Flagyl prescribed to him from ER here on 05/06/2017 for diverticulitis diagnosed through CT scan. On Cefriaxone currently. Given Vancomycin IV in ER and to continue now with HD doses given the FISH analysis suggesting MRSA. Chest X-ray now shows no active disease. Meneses cultures pending. Influenza testing negative. Patient is given various stories on why he needs to discharged from furniture being delivered today, to of a cousin, and a birthday constitution party as the stories have not been consistent between the health care worker he speaks to (He told me that furniture was being delivered). For TTE. On Vancomycin with HD. Received Vancomycin IV dose yesterday. Objective - Vital Signs/Intake and Output Vital Signs (last 24 hours): Temp Pulse Resp BP Pulse Ox 98.4 F 76 18 118/58 L 96 05/21/17 13:31 05/21/17 13:31 05/21/17 13:31 05/21/17 13:31 05/21/17 13:31 Intake and Output: 05/21/17 05/21/17 06:59 18:59 Intake Total 780 50 Output Total 3 Balance 777 50 - Medications Medications: Current Medications Acetaminophen (Tylenol 325mg Tab) 650 mg PO Q4H PRN PRN Reason: Fever >100.4 F Alprazolam (Xanax) 0.25 mg PO TID PRN; Protocol PRN Reason: Anxiety Stop: 05/23/17 00:34 Atorvastatin Calcium (Lipitor) 10 mg PO DAILY [facility] Last Admin: 05/21/17 09:31 Dose: 10 mg Famotidine (Pepcid) 40 mg PO HS [facility] Last Admin: 05/20/17 21:28 Dose: 40 mg Heparin Sodium (Porcine) (Heparin) 5,000 units SC Q12 MARIS PRN Reason: Protocol Last Admin: 05/21/17 09:31 Dose: Not Given Metronidazole (Flagyl) 500 mg PO Q8 MARIS Last Admin: 05/21/17 14:29 Dose: 500 mg Ondansetron HCl (Zofran Inj) 4 mg IVP Q4H PRN PRN Reason: Nausea/Vomiting - Labs Labs: 05/21/17 08:00 05/21/17 08:00 PT 12.8 SECONDS (9.4-12.5) H 05/19/17 11:44 INR 1.11 (0.93-1.08) H 05/19/17 11:44 APTT 26.7 Seconds (25.1-36.5) 05/19/17 11:44 - Constitutional Appears: Non-toxic, No Acute Distress, Chronically Ill - Head Exam Head Exam: ATRAUMATIC, NORMOCEPHALIC - Eye Exam Eye Exam: EOMI, PERRL Pupil Exam: NORMAL ACCOMODATION, PERRL - ENT Exam ENT Exam: Mucous Membranes Moist, Normal External Ear Exam, TM's Normal Bilaterally - Neck Exam Neck Exam: Full ROM, Normal Inspection - Respiratory Exam Respiratory Exam: Clear to Ausculation Bilateral, NORMAL BREATHING PATTERN. absent: Rales, Rhonchi, Wheezes - Cardiovascular Exam Cardiovascular Exam: REGULAR RHYTHM, RRR, +S1, +S2 - GI/Abdominal Exam GI & Abdominal Exam: Soft, Tenderness, Normal Bowel Sounds. absent: Distended - Extremities Exam Extremities Exam: Full ROM, Normal Inspection - Neurological Exam Neurological Exam: Alert, Awake, CN II-XII Intact, Oriented x3 - Psychiatric Exam Psychiatric exam: Normal Affect, Normal Mood - Skin Skin Exam: Intact, Normal Color Assessment and Plan - Assessment and Plan (Free Text) Assessment: 71 yo male with chills and fevers up to 103 F last night sent from HD center. Patient with ESRD on HD. Cultures in progress. On Ceftriaxone and Flagyl for antibiotic treatment at this time. No particular finding on Chest X-ray. Clinically appears better today. Afebrile today. Meneses cultures pending. No leukocytosis. Urinalysis appears mostly benign. Cannot rule out other viral etiology (noted influenza screens negative) versus bacterial sepsis. Supportive care. Continue Flagyl for now as the patient is afebrile currently. Vancomycin IV with HD. HD catheter must be removed especially if Staph Aureus confirmed. Patient will need echocardiogram as well. Confirmed MRSA. Continue with Vancomycin with HD. Surgery to plan on removal of the HD catheter as graft appears to be mature. Received Vancomycin dose on 05/20/2017. Unable to rule out vegetation due calcified mitral value. KELI showing aortic valve vegetation. Patient will need 6 weeks of Vancomycin IV with HD. Thank you for allowing me to participate in the care of the patient, we will follow with you.
--- NOTE | 2017-05-21 18:31 | PN ---
DATE: REASON FOR CONSULTATION AND FOLLOWUP: KELI to rule out endocarditis. SUBJECTIVE: The patient denies any chest pain, shortness of breath or any palpitations. OBJECTIVE: GENERAL: Not in apparent distress. VITAL SIGNS: As follows: Temperature afebrile, heart rate 60, blood pressure 103/60. HEENT: PERRLA. Extraocular muscles intact. NECK: Supple. No carotid bruit or thyromegaly. CHEST: Clear to auscultation. HEART: S1, S2 regular. ABDOMEN: Soft. EXTREMITIES: Clubbing and cyanosis negative. IMPRESSION: Blood culture positive, calcified mitral valve, patient underwent transesophageal echocardiogram that shows aortic valve with mild aortic regurgitation consistent with aortic valve endocarditis, low normal left ventricular function, moderate mitral regurgitation. RECOMMENDATION: Continue at least 4 weeks of antibiotic as per ID. We will follow with you. We will sign off and glad to follow p.r.n. Thank you, Dr. Valiente, for providing us the opportunity in taking care of the patient, Сергей Aleman. Ginny Sorto MD
== END 2017-05-21 20:50 | disposition home or self-care (01) | DRG 314 ==
LOC: ED 17:51 → ERH 22:08 → 2RSO 23:11 → 2RNO 05-18 11:03 → 5RSO 05-18 13:43
PROVIDERS: ADMIT Internal Medicine; ATTEND Hospitalist
PROC: 5A1D70Z Performance of Urinary Filtration, Intermittent, Less than 6 Hours Per Day (ICD-10-PCS; 2017-05-18)
PROC: 05PY33Z Removal of Infusion Device from Upper Vein, Percutaneous Approach (ICD-10-PCS; principal; 2017-05-20)
PROC: 5A1D70Z Performance of Urinary Filtration, Intermittent, Less than 6 Hours Per Day (ICD-10-PCS; 2017-05-20)
PROC: B246ZZ4 Ultrasonography of Right and Left Heart, Transesophageal (ICD-10-PCS; 2017-05-21)
DX: T82.7XXA Infection and inflammatory reaction due to other cardiac and vascular devices, implants and grafts, initial encounter (principal); A41.02 Sepsis due to Methicillin resistant Staphylococcus aureus; I12.0 Hypertensive chronic kidney disease with stage 5 chronic kidney disease or end stage renal disease; E11.22 Type 2 diabetes mellitus with diabetic chronic kidney disease; N18.6 End stage renal disease; N25.81 Secondary hyperparathyroidism of renal origin; E78.5 Hyperlipidemia, unspecified; D63.1 Anemia in chronic kidney disease; K57.90 Diverticulosis of intestine, part unspecified, without perforation or abscess without bleeding; E11.51 Type 2 diabetes mellitus with diabetic peripheral angiopathy without gangrene; F06.4 Anxiety disorder due to known physiological condition; I08.0 Rheumatic disorders of both mitral and aortic valves; Z99.2 Dependence on renal dialysis; Z85.46 Personal history of malignant neoplasm of prostate

== ENCOUNTER 2017-06-10 10:28 | Emergency (ER) | payer MEDICARE, MEDICAID ==
[2017-06-10 10:56] VITALS: TEMP 98.1; BMI 25.9
[2017-06-10] MEDS ORDERED: Sodium Chloride 0.9% 1,000 ML IV STA (10:58)
--- NOTE | 2017-06-10 10:59 | ED PDOC ---
Arrival/HPI - General Chief Complaint: Dizziness/Lightheaded Time Seen by Provider: 06/10/17 10:49 - History of Present Illness Narrative History of Present Illness (Text): 06/10/17 10:55 71 year old male, whose past medical history includes renal failure and non- active prostate cancer, who presents to the emergency department complaining of dizziness, weakness, and nausea after dialysis. Patient did not eat before receiving treatment at 05:00. Patient denies any fever, abdominal pain, cough, chest pain, shortness of breath, dysuria, back pain, vomiting, diarrhea or any other complaints. Symptom Onset: Gradual Symptom Course: Unchanged Activities at Onset: Light Context: Home Past Medical History - Provider Review Nursing Documentation Reviewed: Yes - Infectious Disease Hx of Infectious Diseases: None - Tetanus Immunization Tetanus Immunization: Unknown - Cardiac Hx Cardiac Disorders: Yes Hx Hypertension: Yes - Pulmonary Hx Respiratory Disorders: No - Neurological Hx Neurological Disorder: No - HEENT Hx HEENT Disorder: No - Renal Hx Renal Disorder: Yes Hx Dialysis: Yes (MWF) Hx Renal Failure: Yes - Endocrine/Metabolic Hx Endocrine Disorders: No - Hematological/Oncological Hx Cancer: Yes (prostate) Hx Shingles: Yes - Integumentary Hx Dermatological Disorder: No - Musculoskeletal/Rheumatological Hx Musculoskeletal Disorders: No Hx Falls: No - Gastrointestinal Hx Gastrointestinal Disorders: Yes Hx Diverticulitis: Yes - Genitourinary/Gynecological Hx Prostate Problems: Yes (prostate CA) - Psychiatric Hx Psychophysiologic Disorder: Yes Hx Anxiety: Yes Hx Substance Use: No - Surgical History Hx Cholecystectomy: Yes - Anesthesia Hx Anesthesia: Yes Hx Anesthesia Reactions: No Hx Malignant Hyperthermia: No Family/Social History - Physician Review Nursing Documentation Reviewed: Yes Family/Social History: No Known Family HX Smoking Status: Never Smoked Hx Alcohol Use: No Hx Substance Use: No Allergies/Home Meds Allergies/Adverse Reactions: Allergies No Known Allergies Allergy (Verified 06/10/17 10:49) Home Medications: Home Meds Medication Instructions Recorded Confirmed ALPRAZolam [Xanax] 0.25 mg PO TID PRN 05/15/17 06/10/17 Atorvastatin [Lipitor] 10 mg PO DAILY 05/15/17 06/10/17 Review of Systems - Physician Review All systems were reviewed & negative as marked: Yes - Review of Systems Constitutional: absent: Fevers Cardiovascular: absent: Chest Pain Physical Exam - Physical Exam Narrative Physical Exam (Text): 06/10/17 11:00 Gen: NAD Head: NC/AT Eyes: PERRL ENT: Dry Mucous Membrane Neck: Supple Chest: No tenderness CV: Regular rate Lungs: CTA b/l Abd: Soft, NT Back: No CVA tenderness Extremities: No swelling or tenderness Skin: No rash Neuro: Alert, no focal deficit Vital Signs Temp Pulse Resp BP Pulse Ox 06/10/17 10:37 98.1 F 80 17 126/65 98 Medical Decision Making ED Course and Treatment: 06/10/17 11:01 Impression: 71 year old male presents to the ED complaining of dizziness, weakness, and nausea after dialysis treatment. Plan: -- CXR -- Labs -- Urinalysis -- Lipase -- Sodium Chloride -- Reassess and disposition Progress Notes: 06/10/17 12:03 CXR reviewed, shows: LUNGS: No active pulmonary disease. PLEURA: No significant pleural effusion identified, no pneumothorax apparent. CARDIOVASCULAR: Normal. OSSEOUS STRUCTURES: No significant abnormalities. VISUALIZED UPPER ABDOMEN: Normal. OTHER FINDINGS: None. IMPRESSION: No active disease. 06/10/17 15:01 Patient had refused blood work because he was tired, causing delay in work up. Labs returned unremarkable, CBC baseline pancytopenia. Patient ate food and felt much better, symptoms resolved and vitals normal. Will discharge, f/u PMD, return to ED for worsening weakness, dyspnea, vomiting, or pain. - Lab Interpretations Lab Results: 06/10/17 13:20 06/10/17 13:20 Lab Results 06/10/17 14:03: Urine Color Yellow, Urine Appearance Clear, Urine pH 8.5, Ur Specific [place] 1.015, Urine Protein 100 H, Urine Glucose (UA) 250 H, Urine Ketones Negative, Urine Blood Trace-lysed H, Urine Nitrate Negative, Urine Bilirubin Negative, Urine Urobilinogen 0.2, Ur Leukocyte Esterase Negative, Urine RBC 2 - 5, Urine WBC 0 - 2, Ur Epithelial Cells 1 - 3, Amorphous Sediment Few, Urine Bacteria Large, Urine Other Uyeast 06/10/17 13:20: Sodium 138, Potassium 4.0, Chloride 97 L, Carbon Dioxide 27, Anion Gap 18, BUN 18, Creatinine 4.1 H, Est GFR ( Amer) 17, Est GFR (Non- Af Amer) 14, Random Glucose 89, Calcium 8.8, Total Bilirubin 0.5, AST 18, ALT 22 , Alkaline Phosphatase 72, Total Protein 6.8, Albumin 3.8, Globulin 3.0, Albumin /Globulin Ratio 1.3, Lipase 254 06/10/17 13:20: WBC 2.6 L* D, RBC 3.24 L, Hgb 9.5 L, Hct 30.5 L, MCV 94.1, MCH 29.3, MCHC 31.1, RDW 14.3, Plt Count 69 L, MPV 11.1 H, Gran % 45.5 L, Lymph % ( Auto) 38.8 H, Stone % (Auto) 12.5 H, Eos % (Auto) 2.4, Baso % (Auto) 0.8, Gran # 1.16 L, Lymph # (Auto) 1.0 L, Stone # (Auto) 0.3, Eos # (Auto) 0.1, Baso # (Auto ) 0.02 - RAD Interpretation Radiology Orders: 06/10/17 10:58 CHEST PORTABLE [RAD] Stat - Medication Orders Current Medication Orders: Sodium Chloride (Sodium Chloride 0.9%) 1,000 mls @ 50 mls/hr IV .Q20H STA Stop: 06/11/17 06:57 Last Admin: 06/10/17 12:42 Dose: 50 mls/hr eMAR Start Stop Document 06/10/17 12:42 ADELINE (Rec: 06/10/17 12:43 ADELINE [id number]) Intravenous Solution Start Date 06/10/17 Start Time 12:43 - Scribe Statement The provider has reviewed the documentation as recorded by the Scribmelvin Vera All medical record entries made by the Scribe were at my direction and personally dictated by me. I have reviewed the chart and agree that the record accurately reflects my personal performance of the history, physical exam, medical decision making, and the department course for this patient. I have also personally directed, reviewed, and agree with the discharge instructions and disposition. Disposition/Present on Arrival - Present on Arrival Any Indicators Present on Arrival: Yes History of DVT/PE: Yes History of Uncontrolled Diabetes: No Urinary Catheter: No History of Decub. Ulcer: No History Surgical Site Infection Following: None - Disposition Have Diagnosis and Disposition been Completed?: Yes Diagnosis: Lightheadedness Disposition: HOME/ ROUTINE Disposition Time: 15:02 Patient Plan: Discharge Condition: STABLE Discharge Instructions (ExitCare): Generalized Weakness Forms: [facility] (Hebrew)
--- NOTE | 2017-06-10 11:59 | RAD ---
HISTORY: lightheadedness COMPARISON: 05/15/2017 FINDINGS: LUNGS: No active pulmonary disease. PLEURA: No significant pleural effusion identified, no pneumothorax apparent. CARDIOVASCULAR: Normal. OSSEOUS STRUCTURES: No significant abnormalities. VISUALIZED UPPER ABDOMEN: Normal. OTHER FINDINGS: None. IMPRESSION: No active disease.
[2017-06-10 13:32] LABS: BASO # 0.02 K/mm3 (0.0-2.0); BASO % 0.8 % (0.0-3.0); EOS # 0.1 (0.0-0.7); EOS % 2.4 % (1.5-5.0); GRAN # 1.16 (1.4-6.5); GRAN % 45.5 % (50.0-68.0); HEMOGLOBIN 9.5 g/dL (14.0-18.0); LYMPH % 38.8 % (22.0-35.0); MEAN CELL VOLUME 94.1 fl (80.0-105.0); MEAN CORPUSCULAR HEMOGLOBIN 29.3 pg (25.0-35.0); MEAN CORPUSCULAR HGB CONC 31.1 g/dl (31.0-37.0); MEAN PLATELET VOLUME 11.1 fl (7.0-11.0); MONO # 0.3 (0.1-0.6); MONO % 12.5 % (1.0-6.0); RBC 3.24 10^6/uL (3.5-6.1); RED CELL DISTRIBUTION WIDTH 14.3 % (11.5-14.5)
[2017-06-10 13:35] LABS: WHITE BLOOD COUNT 2.6 10^3/ul (4.5-11.0)
[2017-06-10 13:41] LABS: ALB/GLOB RATIO 1.3 (1.1-1.8); ALBUMIN 3.8 g/dL (3.0-4.8); CALCIUM 8.8 mg/dL (8.4-10.5)
[2017-06-10 14:28] LABS: PH,URINE 8.5 (4.7-8.0); URINE BILIRUBIN NEGATIVE (NEGATIVE); URINE BLOOD TRACE-LYSED (NEGATIVE); URINE GLUCOSE (UA) 250 mg/dL (NEGATIVE); URINE LEUKOCYTE ESTERASE NEGATIVE Leu/uL (NEGATIVE); URINE PROTEIN 100 mg/dL (<30 mg/dL); URINE UROBILINOGEN 0.2 E.U./dL (<1 E.U./dL)
[2017-06-10 14:35] LABS: URINE APPEARANCE CLEAR (CLEAR); URINE COLOR YELLOW (YELLOW)
[2017-06-10 14:53] LABS: URINE BACTERIA LARGE (NEG); URINE WBC 0 - 2 /hpf (0-6)
[2017-06-10 14:55] LABS: URINE AMORPHOUS SEDIMENT FEW
[2017-06-10 15:32] VITALS: RESP 18
[2017-06-10 16:04] VITALS: BP 130/62; PULSE 81; O2SAT 96
== END 2017-06-10 16:10 | disposition home or self-care (01) ==
LOC: ED 10:28
DX: R42 Dizziness and giddiness (principal); I10 Essential (primary) hypertension; Z85.46 Personal history of malignant neoplasm of prostate; Z99.2 Dependence on renal dialysis
CPT/HCPCS: 72HRC; 99285

== ENCOUNTER 2017-06-10 21:37 | Inpatient (IN) | payer MEDICARE, MEDICAID ==
[2017-06-10 21:46] VITALS: BMI 23.1
--- NOTE | 2017-06-10 22:04 | ED PDOC ---
Arrival/HPI - General Chief Complaint: Abdominal Pain Time Seen by Provider: 06/10/17 21:44 Historian: Patient - History of Present Illness Narrative History of Present Illness (Text): 06/10/17 22:04 Сергей Aleman is a 71 year old male, whose past medical history includes ESRD with hemodialysis on M/W/F, hypertension, diverticulitis, and anxiety, who presents to the Emergency department complaining of abdominal pain. Patient states he has been experiencing LLQ pain with associated nausea and vomiting tonight. Patient was seen in the Emergency department for dizziness, weakness, and vomiting after dialysis earlier today and was discharged home after he felt better. Patient denies any chest pain, shortness of breath, diarrhea, fever, chills, back pain, neck pain, headache, or any other complaints. Symptom Onset: Gradual Symptom Course: Unchanged Activities at Onset: Light Context: Home Past Medical History - Provider Review Nursing Documentation Reviewed: Yes - Infectious Disease Hx of Infectious Diseases: None - Tetanus Immunization Tetanus Immunization: Unknown - Cardiac Hx Cardiac Disorders: Yes Hx Hypertension: Yes - Pulmonary Hx Respiratory Disorders: No - Neurological Hx Neurological Disorder: No - HEENT Hx HEENT Disorder: No - Renal Hx Renal Disorder: Yes Hx Dialysis: Yes (MWF) Hx Renal Failure: Yes - Endocrine/Metabolic Hx Endocrine Disorders: No - Hematological/Oncological Hx Blood Disorders: Yes Hx Cancer: Yes (prostate) Hx Shingles: Yes - Integumentary Hx Dermatological Disorder: No - Musculoskeletal/Rheumatological Hx Musculoskeletal Disorders: No Hx Falls: No - Gastrointestinal Hx Gastrointestinal Disorders: Yes Hx Diverticulitis: Yes - Genitourinary/Gynecological Hx Genitourinary Disorders: Yes Hx Prostate Problems: Yes (prostate CA) - Psychiatric Hx Psychophysiologic Disorder: Yes Hx Anxiety: Yes Hx Substance Use: No - Surgical History Hx Cholecystectomy: Yes - Anesthesia Hx Anesthesia: Yes Hx Anesthesia Reactions: No Hx Malignant Hyperthermia: No Family/Social History - Physician Review Nursing Documentation Reviewed: Yes Family/Social History: Unknown Family HX Smoking Status: Never Smoked Hx Alcohol Use: No Hx Substance Use: No Allergies/Home Meds Allergies/Adverse Reactions: Allergies No Known Allergies Allergy (Verified 06/10/17 21:46) Review of Systems - Physician Review All systems were reviewed & negative as marked: Yes - Review of Systems Constitutional: Normal. absent: Fevers Eyes: Normal ENT: Normal Respiratory: Normal. absent: SOB, Cough Cardiovascular: Normal. absent: Chest Pain Gastrointestinal: Abdominal Pain, Nausea, Vomiting. absent: Diarrhea Genitourinary Male: Normal. absent: Dysuria, Frequency, Hematuria, Urinary Output Changes Musculoskeletal: Normal. absent: Back Pain, Neck Pain Skin: Normal. absent: Rash Neurological: Normal. absent: Headache, Dizziness Endocrine: Normal Hemo/Lymphatic: Normal Psychiatric: Normal Physical Exam Vital Signs Reviewed: Yes Vital Signs Temp Pulse Resp BP Pulse Ox 06/10/17 21:56 97.7 F 76 20 159/84 H 99 Temperature: Afebrile Blood Pressure: Hypertensive Pulse: Regular Respiratory Rate: Normal Appearance: Positive for: Well-Appearing, Non-Toxic, Comfortable Pain Distress: None Mental Status: Positive for: Alert and Oriented X 3 - Systems Exam Head: Present: Atraumatic, Normocephalic Pupils: Present: PERRL Extroacular Muscles: Present: EOMI Conjunctiva: Present: Normal Mouth: Present: Moist Mucous Membranes Neck: Present: Normal Range of Motion. No: Meningeal Signs, MIDLINE TENDERNESS , Paraspinal Tenderness Respiratory/Chest: Present: Clear to Auscultation, Good Air Exchange. No: Respiratory Distress, Accessory Muscle Use Cardiovascular: Present: Regular Rate and Rhythm, Normal S1, S2. No: Murmurs Abdomen: Present: Tenderness (mild LLQ tenderness), Normal Bowel Sounds. No: Distention, Peritoneal Signs Back: Present: Normal Inspection Upper Extremity: Present: Normal Inspection. No: Cyanosis, Edema Lower Extremity: Present: Normal Inspection. No: Edema Neurological: Present: GCS=15, CN II-XII Intact, Speech Normal Skin: Present: Warm, Dry, Normal Color. No: Rashes Psychiatric: Present: Alert, Oriented x 3, Normal Insight, Normal Concentration Medical Decision Making ED Course and Treatment: 06/10/17 22:04 Impression: 71 year old male complaining of LLQ abdominal pain, nausea, and vomiting tonight. Plan: -- CT Abdome and Pelvis w/o contrast -- Labs, lipase -- Reassess and disposition Prior Visits: Notes and results from previous visits were reviewed. Pt was seen in the Emergency department today dizziness, weakness, and nausea. Pt was d/c home. Chest X-ray performed showed no acute processes. Progress Notes: 06/11/17 00:10 CT Abdomen and Pelvis shows: LIMITATIONS: Streak artifact from an arthroplasty device. LOWER THORAX: Heart appears mildly enlarged. ABDOMEN: LIVER: No acute abnormality of the liver identified. GALLBLADDER AND BILE DUCTS: Cholecystectomy clips. PANCREAS: No CT evidence of acute pancreatitis. SPLEEN: Mild splenomegaly, with the spleen measuring 15 cm in length. ADRENALS: No acute abnormality of the adrenal glands identified. KIDNEYS AND URETERS: Kidneys appear atrophic bilaterally. Low density lesions in the kidneys bilaterally, most likely representing cysts. The largest of these measures 1.8 cm. STOMACH AND BOWEL: Findings compatible with a high grade small bowel obstruction. There are multiple fluid-filled and dilated small bowel loops seen, and multiple decompressed distal small bowel loops are visualized. The obstruction is suspected to be secondary to an internal hernia of the small bowel. Best seen on images 17-33 of series 601, there is a cluster of abnormally dilated bowel loops in the left abdomen, with adjacent mesenteric edema and a beaked appearance medially, suspicious for an internal hernia of the small bowel. The small bowel transition point is seen, near the location of the small bowel beaking, image 19/series 601. Colonic diverticulosis, with no evidence of acute diverticulitis. Retained stool noted throughout the colon, with no evidence of a significant large bowel obstruction or fecal impaction. APPENDIX: Appendix is seen, and is within normal limits in appearance. PELVIS: BLADDER: No acute abnormality of the bladder identified. REPRODUCTIVE: Prostate gland is mildly enlarged. ABDOMEN and PELVIS: INTRAPERITONEAL SPACE: Small amount of free fluid in the pelvis. No evidence of free air. BONES/JOINTS: Arthroplasty device in the left hip. SOFT TISSUES: Post operative scarring involving the left groin soft tissues. No evidence of abdominal wall hernia containing bowel. VASCULATURE: No evidence of abdominal aortic aneurysm. No evidence of periaortic hemorrhage. LYMPH NODES: No evidence of diffuse lymphadenopathy. IMPRESSION: - FINDINGS HIGHLY SUSPICIOUS FOR A HIGH-GRADE SMALL BOWEL OBSTRUCTION, DUE TO AN INTERNAL HERNIA OF THE SMALL BOWEL. PLEASE SEE ABOVE FOR A FULL DESCRIPTION. - Small amount of pelvic free fluid. - See above for remaining findings. 06/11/17 00:16 Case discussed with surgical services manager business analysis consultant, who is aware and agrees to evaluate pt. 06/11/17 00:56 Pt evaluated by surgical services manager, pt refused NG tube. Case discussed with Dr. Thomason, who requests pt be admitted under Dr. Zepeda and he will consult medically. hvac residential service technician made aware, call placed to Dr. Zepeda. 06/11/17 01:05 Case discussed with surgical services manager and Dr. Zepeda, accepts pt in to his service. Agrees with management at this time. Pt to be kept NPO. - Lab Interpretations Lab Results: 06/10/17 22:37 06/10/17 22:37 Lab Results 06/11/17 01:07: pO2 176 H, VBG pH 7.51 H, VBG pCO2 35.0 L, VBG HCO3 27.9, VBG Total CO2 29.0 H, VBG O2 Sat (Calc) 99.6 H, VBG Base Excess 4.9 H, VBG Potassium 4.6, Glucose 123 H, Lactate 1.3, FiO2 21.0, Sodium 135.0, Chloride 102.0, Venous Blood Potassium 4.6 06/10/17 22:37: WBC 3.2 L D, RBC 3.63, Hgb 10.7 L, Hct 34.1 L, MCV 93.9, MCH 29.5, MCHC 31.4, RDW 14.2, Plt Count 77 L, MPV 11.2 H 06/10/17 22:37: Sodium 138, Potassium 4.6, Chloride 96 L, Carbon Dioxide 30, Anion Gap 17, BUN 23 H, Creatinine 5.6 H, Est GFR ( Amer) 12, Est GFR ( Non-Af Amer) 10, Random Glucose 126 H, Calcium 9.4, Total Bilirubin 0.9, AST 20 , ALT 19, Alkaline Phosphatase 95, Total Protein 7.5, Albumin 4.3, Globulin 3.2 , Albumin/Globulin Ratio 1.3, Lipase 78 I have reviewed the lab results: Yes - RAD Interpretation Radiology Orders: 06/10/17 22:11 ABD & PELVIS W/O PO OR IV CONT [CT] Stat Inventory Accountant: Radiologist - Medication Orders Current Medication Orders: Heparin Sodium (Porcine) (Heparin) 5,000 units SC Q12 MARIS PRN Reason: Protocol Hydromorphone HCl (Dilaudid) 0.5 mg IVP Q6H PRN PRN Reason: Pain, moderate (4-7) Insulin Human Regular (Humulin R Med) 0 units SC ACHS MRAIS PRN Reason: Protocol Ondansetron HCl (Zofran Inj) 4 mg IVP Q6 PRN PRN Reason: Nausea/Vomiting - Scribe Statement The provider has reviewed the documentation as recorded by the Scribe Alyssa Jeronimo Provider Scribe Attestation: All medical record entries made by the Scribe were at my direction and personally dictated by me. I have reviewed the chart and agree that the record accurately reflects my personal performance of the history, physical exam, medical decision making, and the department course for this patient. I have also personally directed, reviewed, and agree with the discharge instructions and disposition. Disposition/Present on Arrival - Present on Arrival Any Indicators Present on Arrival: No History of DVT/PE: Yes History of Uncontrolled Diabetes: No Urinary Catheter: No History of Decub. Ulcer: No History Surgical Site Infection Following: None - Disposition Have Diagnosis and Disposition been Completed?: Yes Diagnosis: Small bowel obstruction Disposition: HOSPITALIZED Disposition Time: 01:25 Patient Plan: Admission Patient Problems: Current Active Problems Problem Status Onset Small bowel obstruction Acute Condition: STABLE [facility] - Follow up with primary Forms: [employer] (Sami)
[2017-06-10 22:49] LABS: HEMOGLOBIN 10.7 g/dL (14.0-18.0); MEAN CELL VOLUME 93.9 fl (80.0-105.0); MEAN CORPUSCULAR HEMOGLOBIN 29.5 pg (25.0-35.0); MEAN CORPUSCULAR HGB CONC 31.4 g/dl (31.0-37.0); MEAN PLATELET VOLUME 11.2 fl (7.0-11.0); RBC 3.63 10^6/uL (3.5-6.1); RED CELL DISTRIBUTION WIDTH 14.2 % (11.5-14.5); WHITE BLOOD COUNT 3.2 10^3/ul (4.5-11.0)
[2017-06-10 22:55] LABS: ALB/GLOB RATIO 1.3 (1.1-1.8); ALBUMIN 4.3 g/dL (3.0-4.8); CALCIUM 9.4 mg/dL (8.4-10.5)
--- NOTE | 2017-06-11 00:02 | CT ---
EXAM: CT Abdomen and Pelvis Without Intravenous Contrast EXAM DATE/TIME: 06/10/2017 10:11 PM CLINICAL HISTORY: 71 years old, male; Pain; Abdominal pain; Generalized; Additional info: Pain/past HX. Diverticulitis TECHNIQUE: Axial computed tomography images of the abdomen and pelvis without intravenous contrast. All CT scans at this facility use one or more dose reduction techniques, viz.: automated exposure control; ma/kV adjustment per patient size (including targeted exams where dose is matched to indication; i.e. head); or iterative reconstruction technique. Coronal and sagittal reformatted images were created and reviewed. COMPARISON: Prior CT abdomen and pelvis of 2017-05-06 FINDINGS: LIMITATIONS: Streak artifact from an arthroplasty device. LOWER THORAX: Heart appears mildly enlarged. ABDOMEN: LIVER: No acute abnormality of the liver identified. GALLBLADDER AND BILE DUCTS: Cholecystectomy clips. PANCREAS: No CT evidence of acute pancreatitis. SPLEEN: Mild splenomegaly, with the spleen measuring 15 cm in length. ADRENALS: No acute abnormality of the adrenal glands identified. KIDNEYS AND URETERS: Kidneys appear atrophic bilaterally. Low density lesions in the kidneys bilaterally, most likely representing cysts. The largest of these measures 1.8 cm. STOMACH AND BOWEL: Findings compatible with a high grade small bowel obstruction. There are multiple fluid-filled and dilated small bowel loops seen, and multiple decompressed distal small bowel loops are visualized. The obstruction is suspected to be secondary to an internal hernia of the small bowel. Best seen on images 17-33 of series 601, there is a cluster of abnormally dilated bowel loops in the left abdomen, with adjacent mesenteric edema and a beaked appearance medially, suspicious for an internal hernia of the small bowel. The small bowel transition point is seen, near the location of the small bowel beaking, image 19/series 601. Colonic diverticulosis, with no evidence of acute diverticulitis. Retained stool noted throughout the colon, with no evidence of a significant large bowel obstruction or fecal impaction. APPENDIX: Appendix is seen, and is within normal limits in appearance. PELVIS: BLADDER: No acute abnormality of the bladder identified. REPRODUCTIVE: Prostate gland is mildly enlarged. ABDOMEN and PELVIS: INTRAPERITONEAL SPACE: Small amount of free fluid in the pelvis. No evidence of free air. BONES/JOINTS: Arthroplasty device in the left hip. SOFT TISSUES: Post operative scarring involving the left groin soft tissues. No evidence of abdominal wall hernia containing bowel. VASCULATURE: No evidence of abdominal aortic aneurysm. No evidence of periaortic hemorrhage. LYMPH NODES: No evidence of diffuse lymphadenopathy. IMPRESSION: - FINDINGS HIGHLY SUSPICIOUS FOR A HIGH-GRADE SMALL BOWEL OBSTRUCTION, DUE TO AN INTERNAL HERNIA OF THE SMALL BOWEL. PLEASE SEE ABOVE FOR A FULL DESCRIPTION. - Small amount of pelvic free fluid. - See above for remaining findings.
[2017-06-11] MEDS ORDERED: HYDROmorphone 0.5 mg/0.5 ml ISec IVP PRN (01:08)
[2017-06-11 01:21] LABS: VENOUS BLOOD GAS BASE EXCESS 4.9 mmol/L (0.0-2.0); VENOUS BLOOD GAS PO2 176 mm/Hg (30-55); VENOUS BLOOD PH 7.51 (7.32-7.43)
--- NOTE | 2017-06-11 01:32 | CP.PCM.HP ---
History of Present Illness - History of Present Illness History of Present Illness: Patient is a 71 year old male with past medical history of HTN, anxiety, and CKD on dialysis MWF presented to [facility] [place] with complaints of abdominal pain. Patient states abdominal pain began after having turkey meal after dialysis. Patient reports having similar episodes of abdominal pain s/p dialysis in the past. He reports intermittent epigastric pain. Patient admits to having one bout of emesis, non-bloody upon arrival to ED. He also reports having a large bowel movement in the afternoon. As per patient, nausea and pain have improved since arrival to ED. Patient is refusing nasograstric tube insertion at this time. Currently he is resting in bed comfortably. Patient's vital signs at time of examination 97.7F, HR 76, BP159/84, RR 20, O2Sat 99% in room air. PMH: as listed above PSH: lap cholecystectomy, umbilical hernia repair, AVF Allergies: NKDA Social: Denies history of tobacco, alcohol and illicit drug use. Present on Admission - Present on Admission Any Indicators Present on Admission: No Review of Systems - Review of Systems Review of Systems: 12 pt ROS unremarkable except as stated in HPI Past Patient History - Infectious Disease Hx of Infectious Diseases: None - Tetanus Immunizations Tetanus Immunization: Unknown - Past Social History Smoking Status: Never Smoked - CARDIAC Hx Cardiac Disorders: Yes Hx Hypertension: Yes - PULMONARY Hx Respiratory Disorders: No - NEUROLOGICAL Hx Neurological Disorder: No - HEENT Hx HEENT Problems: No - RENAL Hx Chronic Kidney Disease: Yes Hx Dialysis: Yes (MWF) Hx Renal Failure: Yes - ENDOCRINE/METABOLIC Hx Endocrine Disorders: No - HEMATOLOGICAL/ONCOLOGICAL Hx Blood Disorders: Yes Hx Cancer: Yes (prostate) Hx Shingles: Yes - INTEGUMENTARY Hx Dermatological Problems: No - MUSCULOSKELETAL/RHEUMATOLOGICAL Hx Musculoskeletal Disorders: No Hx Falls: No - GASTROINTESTINAL Hx Gastrointestinal Disorders: Yes Hx Diverticulitis: Yes - GENITOURINARY/GYNECOLOGICAL Hx Genitourinary Disorders: Yes Hx Prostate Problems: Yes (prostate CA) - PSYCHIATRIC Hx Psychophysiologic Disorder: Yes Hx Anxiety: Yes Hx Substance Use: No - SURGICAL HISTORY Hx Cholecystectomy: Yes - ANESTHESIA Hx Anesthesia: Yes Hx Anesthesia Reactions: No Hx Malignant Hyperthermia: No Meds Allergies/Adverse Reactions: Allergies Allergy/AdvReac Type Severity Reaction Status Date / Time No Known Allergies Allergy Verified 06/10/17 21:46 Physical Exam - Constitutional Appears: No Acute Distress - Head Exam Head Exam: NORMOCEPHALIC - Eye Exam Eye Exam: Normal appearance - ENT Exam ENT Exam: Mucous Membranes Moist - Respiratory Exam Respiratory Exam: NORMAL BREATHING PATTERN - Cardiovascular Exam Cardiovascular Exam: +S1, +S2 - GI/Abdominal Exam GI & Abdominal Exam: Soft, Tenderness. absent: Distended, Guarding, Rebound Additional comments: epigastric tenderness - Extremities Exam Extremities exam: Negative for: calf tenderness - Neurological Exam Neurological exam: Alert, Oriented x3 - Psychiatric Exam Psychiatric exam: Normal Mood - Skin Skin Exam: Normal Color Results - Vital Signs Recent Vital Signs: Last Vital Signs Temp 97.7 F 06/10/17 21:56 Pulse 76 06/10/17 21:56 Resp 20 06/10/17 21:56 BP 159/84 H 06/10/17 21:56 Pulse Ox 99 06/10/17 21:56 - Labs Result Diagrams: 06/10/17 22:37 06/10/17 22:37 Labs: Laboratory Results - last 24 hr 06/10/17 06/10/17 06/11/17 22:37 22:37 01:07 WBC 3.2 L D RBC 3.63 Hgb 10.7 L Hct 34.1 L MCV 93.9 MCH 29.5 MCHC 31.4 RDW 14.2 Plt Count 77 L MPV 11.2 H pO2 176 H VBG pH 7.51 H VBG pCO2 35.0 L VBG HCO3 27.9 VBG Total CO2 29.0 H VBG O2 Sat (Calc) 99.6 H VBG Base Excess 4.9 H VBG Potassium 4.6 Glucose 123 H Lactate 1.3 FiO2 21.0 Sodium 138 135.0 Potassium 4.6 Chloride 96 L 102.0 Carbon Dioxide 30 Anion Gap 17 BUN 23 H Creatinine 5.6 H Est GFR ( Amer) 12 Est GFR (Non-Af Amer) 10 Random Glucose 126 H Calcium 9.4 Total Bilirubin 0.9 AST 20 ALT 19 Alkaline Phosphatase 95 Total Protein 7.5 Albumin 4.3 Globulin 3.2 Albumin/Globulin Ratio 1.3 Lipase 78 Venous Blood Potassium 4.6 - Imaging and Cardiology CT scan - abdomen Status: Image reviewed by me, Report reviewed by me Assessment & Plan - Assessment and Plan (Free Text) Assessment: 71M with abdominal pain 2/2 SBO Plan: -F/u lactate level -NPO -IVF -Anti-emetic -Analgesic -Recommend NG tube insertion if vomits or if nausea worsens -Serial abdominal exams -D/w Dr. Duane Lane PGY2 - Date & Time Date: 06/11/17 Time: 12:20
[2017-06-11] MEDS ORDERED: Sodium Chloride 0.9% 1,000 ML IV SCH (02:00)
[2017-06-11 07:51] LABS: BASO # 0.02 K/mm3 (0.0-2.0); BASO % 0.6 % (0.0-3.0); EOS % 1.2 % (1.5-5.0); GRAN # 2.04 (1.4-6.5); HEMOGLOBIN 9.8 g/dL (14.0-18.0); LYMPH % 30.3 % (22.0-35.0); MEAN CELL VOLUME 93.7 fl (80.0-105.0); MEAN CORPUSCULAR HEMOGLOBIN 29.4 pg (25.0-35.0); MEAN CORPUSCULAR HGB CONC 31.4 g/dl (31.0-37.0); MEAN PLATELET VOLUME 10.3 fl (7.0-11.0); MONO # 0.3 (0.1-0.6); MONO % 7.9 % (1.0-6.0); RBC 3.33 10^6/uL (3.5-6.1); RED CELL DISTRIBUTION WIDTH 14.4 % (11.5-14.5); WHITE BLOOD COUNT 3.4 10^3/ul (4.5-11.0)
[2017-06-11 08:12] LABS: CALCIUM 8.6 mg/dL (8.4-10.5)
[2017-06-11] MEDS: Insulin Reg-MEDIUM-Coverage SC SCH ×4 (11:53→22:45)
--- NOTE | 2017-06-11 15:29 | CON ---
DATE: 06/11/2017 REFERRING PHYSICIAN: Hernan Zepeda M.D. REASON FOR CONSULTATION: End-stage renal disease, on hemodialysis. HISTORY OF PRESENT ILLNESS: This is a 71-year-old male who has end-stage renal disease on hemodialysis, had finished his dialysis treatment yesterday and started having dizziness. The patient was sent into the ER for further evaluation. The patient started having abdominal pain. He states it started after having meal after dialysis. The patient states the pain was getting worse. He states mostly it is epigastric. The pain was 4-5/10. He states the pain is better. He has been having bowel movements. The patient denies any fevers or chills. No dysuria or frequency. No weakness in the arms or the legs. No chest pain, no shortness of breath. He said nothing was making the pain better. He came in for further evaluation. ALLERGIES: NO KNOWN DRUG ALLERGIES. HOME MEDICATIONS: Have been reviewed. SOCIAL HISTORY: No smoking, drinking alcohol or drugs. FAMILY HISTORY: Noncontributory. PAST SURGICAL HISTORY: 1. He has a left IJ Perm-A-Cath. 2. Left AV fistula. 3. Colonoscopy. PAST MEDICAL HISTORY: Hypertension, diverticulitis, anxiety, end-stage renal disease on hemodialysis, secondary hyperparathyroidism, dyslipidemia. PHYSICAL EXAMINATION: VITAL SIGNS: The patient has a temperature of 98, pulse of 75, blood pressure 129/64, respirations 18, height is 6 feet 2 inches, weight is 180 pounds, BMI is 23.1. GENERAL: The patient lying in bed, uncomfortable, and in no acute distress. HEENT: Atraumatic and normocephalic. Anicteric sclerae. Moist mucosa. [place] conjunctivae. No oral lesions. NECK: No JVD, anterior and posterior adenopathy, thyromegaly, or bruits. CARDIOVASCULAR: S1 and S2 regular. No murmur, rubs, or gallop. LUNGS: Clear to auscultation bilaterally. No wheezes, rales, or rhonchi. ABDOMEN: Bowel sounds are positive. Soft, nontender and nondistended. No hepatosplenomegaly. No rebound and no guarding EXTREMITIES: No cyanosis, clubbing, or edema. In the left arm, there is a fistula that has a good thrill and bruit. NEUROLOGIC: No facial asymmetry. Tongue is midline. No uvula deviation. Power is 5/5 upper extremity and lower extremity. Sensation intact in upper extremity and lower extremity. PSYCHIATRIC: He is awake, alert and oriented x3. No anxiety or depression. He has normal affect. GENITOURINARY: No CVA tenderness. VASCULAR: 2+ pulses in the carotid pulses and pedal pulses. SKIN: No erythema or nodules SPINE: Shows normal curvature. LABORATORY DATA AND IMAGING: White count of 3.2, hemoglobin 10.7, platelet count is 77. Chemistry shows sodium 138, his creatinine is 5.6, potassium is 4.6. His baseline platelets are in the 60s to 70s. His abdominal CT done shows high-grade small bowel obstruction due to an internal hernia of the small bowel. ASSESSMENT: 1. Abdominal pain secondary to small bowel obstruction, improving. 2. End-stage renal disease on hemodialysis. 3. Hypertension 4. Secondary hyperparathyroidism. 5. Dyslipidemia. 6. Anxiety. 7. Chronic anemia secondary to chronic kidney disease. 8. Diverticulosis. PLAN: The patient is going to be admitted to the hospital. The patient is on IV fluids. I will discontinue the patient's IV fluids at this point because the patient is on dialysis. He is on liquid diet. He is on heparin for DVT prophylaxis. The patient is currently comfortable. He is being followed by Dr. Zepeda. It seems that the patient is improving. I will await further input from Surgery. The patient refused an NG tube. The patient is currently comfortable. His abdominal pain is better. He may improve on his own and require elective repair of his hernia. Wilmer Thomason MD
[2017-06-11 23:10] VITALS: RESP 18
[2017-06-12 07:12] LABS: BASO # 0.02 K/mm3 (0.0-2.0); BASO % 0.6 % (0.0-3.0); CALCIUM 8.9 mg/dL (8.4-10.5); EOS # 0.1 (0.0-0.7); EOS % 2.6 % (1.5-5.0); GRAN # 1.53 (1.4-6.5); GRAN % 49.7 % (50.0-68.0); HEMOGLOBIN 9.5 g/dL (14.0-18.0); LYMPH # 1.1 (1.2-3.4); MEAN CORPUSCULAR HEMOGLOBIN 29.3 pg (25.0-35.0); MEAN CORPUSCULAR HGB CONC 31.9 g/dl (31.0-37.0); MEAN PLATELET VOLUME 10.8 fl (7.0-11.0); MONO # 0.3 (0.1-0.6); MONO % 10.1 % (1.0-6.0); RBC 3.24 10^6/uL (3.5-6.1); RED CELL DISTRIBUTION WIDTH 14.1 % (11.5-14.5); WHITE BLOOD COUNT 3.1 10^3/ul (4.5-11.0)
[2017-06-12] MEDS: Insulin Reg-MEDIUM-Coverage SC SCH ×2 (08:00→12:00)
[2017-06-12] MEDS ORDERED: Doxercalciferol 4 mcg/2 ml Inj IV SCH (08:00)
--- NOTE | 2017-06-12 08:08 | CP.PCM.PN ---
Subjective - Date & Time of Evaluation Date of Evaluation: 06/12/17 Time of Evaluation: 08:06 Objective - Vital Signs/Intake and Output Vital Signs (last 24 hours): Temp Pulse Resp BP Pulse Ox 98.2 F 76 18 129/74 98 06/11/17 16:30 06/11/17 16:30 06/11/17 16:30 06/11/17 16:30 06/11/17 16:30 Intake and Output: 06/12/17 06/12/17 06:59 18:59 Intake Total 240 Balance 240 - Medications Medications: Current Medications Atorvastatin Calcium (Lipitor) 10 mg PO DIN [facility] Last Admin: 06/11/17 17:57 Dose: 10 mg Doxercalciferol (Hectorol) 2 mcg IV MOWEFR [facility] Last Admin: 06/12/17 08:02 Dose: 2 mcg Heparin Sodium (Porcine) (Heparin) 5,000 units SC Q12 [facility] PRN Reason: Protocol Last Admin: 06/11/17 22:38 Dose: 5,000 units Insulin Human Regular (Humulin R Med) 0 units SC ACHS [facility] PRN Reason: Protocol Last Admin: 06/11/17 22:45 Dose: Not Given Ondansetron HCl (Zofran Inj) 4 mg IVP Q6 PRN PRN Reason: Nausea/Vomiting Sevelamer HCl (Renagel) 800 mg PO AC [facility] Last Admin: 06/11/17 17:57 Dose: 800 mg - Labs Labs: 06/12/17 06:50 06/12/17 06:50 Assessment and Plan - Assessment and Plan (Free Text) Assessment: 71M with abdominal pain 2/2 SBO
[2017-06-12] MEDS ORDERED: Vancomycin 1gm in NS 250ml 1 GM/250 ML BAG IVPB SCH (08:15)
--- NOTE | 2017-06-12 08:21 | CP.PCM.DIS ---
Provider - Provider Date of Admission: 06/11/17 01:21 Attending physician: Hernan Zepeda MD Primary care physician: Maynor Profile Required Consults: Dr. Thomason: Renal Time Spent in preparation of Discharge (in minutes): 45 Hospital Course - Lab Results Lab Results: Most Recent Lab Values WBC 3.1 10^3/ul (4.5-11.0) L 06/12/17 06:50 RBC 3.24 10^6/uL (3.5-6.1) L 06/12/17 06:50 Hgb 9.5 g/dL (14.0-18.0) L 06/12/17 06:50 Hct 29.8 % (42.0-52.0) L 06/12/17 06:50 MCV 92.0 fl (80.0-105.0) 06/12/17 06:50 MCH 29.3 pg (25.0-35.0) 06/12/17 06:50 MCHC 31.9 g/dl (31.0-37.0) 06/12/17 06:50 RDW 14.1 % (11.5-14.5) 06/12/17 06:50 Plt Count 76 10^3/uL (120.0-450.0) L 06/12/17 06:50 MPV 10.8 fl (7.0-11.0) 06/12/17 06:50 Gran % 49.7 % (50.0-68.0) L 06/12/17 06:50 Lymph % (Auto) 37.0 % (22.0-35.0) H 06/12/17 06:50 [place] % (Auto) 10.1 % (1.0-6.0) H 06/12/17 06:50 Eos % (Auto) 2.6 % (1.5-5.0) 06/12/17 06:50 Baso % (Auto) 0.6 % (0.0-3.0) 06/12/17 06:50 Gran # 1.53 (1.4-6.5) 06/12/17 06:50 Lymph # (Auto) 1.1 (1.2-3.4) L 06/12/17 06:50 [place] # (Auto) 0.3 (0.1-0.6) 06/12/17 06:50 Eos # (Auto) 0.1 (0.0-0.7) 06/12/17 06:50 Baso # (Auto) 0.02 K/mm3 (0.0-2.0) 06/12/17 06:50 pO2 176 mm/Hg (30-55) H 06/11/17 01:07 VBG pH 7.51 (7.32-7.43) H 06/11/17 01:07 VBG pCO2 35.0 (40-60) L 06/11/17 01:07 VBG HCO3 27.9 mmol/l (21-28) 06/11/17 01:07 VBG Total CO2 29.0 mmol.L (22-28) H 06/11/17 01:07 VBG O2 Sat (Calc) 99.6 % (40-65) H 06/11/17 01:07 VBG Base Excess 4.9 mmol/L (0.0-2.0) H 06/11/17 01:07 VBG Potassium 4.6 mmol/L (3.6-5.2) 06/11/17 01:07 Sodium 135.0 mmol/L (132-148) 06/11/17 01:07 Chloride 102.0 mmol/L (98-107) 06/11/17 01:07 Glucose 123 mg/dl (75-110) H 06/11/17 01:07 Lactate 1.3 mmol/L (0.7-2.1) 06/11/17 01:07 FiO2 21.0 % 06/11/17 01:07 Sodium 137 mmol/L (132-148) 06/12/17 06:50 Potassium 4.8 mmol/L (3.6-5.0) 06/12/17 06:50 Chloride 104 mmol/L (98-107) 06/12/17 06:50 Carbon Dioxide 22 mmol/L (21-33) 06/12/17 06:50 Anion Gap 16 (10-20) 06/12/17 06:50 BUN 38 mg/dL (7-21) H 06/12/17 06:50 Creatinine 7.6 mg/dl (0.8-1.5) H* D 06/12/17 06:50 Est GFR ( Amer) 9 06/12/17 06:50 Est GFR (Non-Af Amer) 7 06/12/17 06:50 Random Glucose 91 mg/dL (70-110) 06/12/17 06:50 Calcium 8.9 mg/dL (8.4-10.5) 06/12/17 06:50 Phosphorus 5.0 mg/dL (2.5-4.5) H 06/12/17 06:50 Magnesium 2.3 mg/dL (1.7-2.2) H 06/12/17 06:50 Total Bilirubin 0.9 mg/dL (0.2-1.3) 06/10/17 22:37 AST 20 U/L (17-59) 06/10/17 22:37 ALT 19 U/L (7-56) 06/10/17 22:37 Alkaline Phosphatase 95 U/L (38-126) 06/10/17 22:37 Total Protein 7.5 g/dL (5.8-8.3) 06/10/17 22:37 Albumin 4.3 g/dL (3.0-4.8) 06/10/17 22:37 Globulin 3.2 gm/dL 06/10/17 22:37 Albumin/Globulin Ratio 1.3 (1.1-1.8) 06/10/17 22:37 Lipase 78 U/L (23-300) 06/10/17 22:37 Venous Blood Potassium 4.6 mmol/L (3.6-5.2) 06/11/17 01:07 - Hospital Course Hospital Course: 71 year old male with past medical history of HTN, anxiety, and CKD on dialysis MWF presented to [facility] [place] with complaints of abdominal pain. Patient was placed NPO and serial abdominal exams were done, which demonstrated possible small bowel obstruction. Patient was kept npo, and by the day of discharge patient had not had any episodes of nausea and vomiting, and was advanced to a regular diet. Patient was discharged in good condition. Discharge Exam - Head Exam Head Exam: NORMOCEPHALIC - Eye Exam Eye Exam: EOMI, Normal appearance, PERRL Pupil Exam: NORMAL ACCOMODATION, PERRL - Respiratory Exam Respiratory Exam: Clear to PA & Lateral, NORMAL BREATHING PATTERN, UNREMARKABLE - GI/Abdominal Exam GI & Abdominal Exam: Normal Bowel Sounds - Neurological Exam Neurological exam: Alert, CN II-XII Intact, Normal Gait, Oriented x3, Reflexes Normal - Psychiatric Exam Psychiatric exam: Normal Affect, Normal Mood - Skin Skin Exam: Dry, Intact, Normal Color, Warm Discharge Plan - Follow Up Plan Condition: GOOD Disposition: HOME/ ROUTINE Patient education suggested?: No Instructions: Small Bowel Obstruction, Arteriovenous Shunt (DC), Why Vaccines Are Important for Everyone, Flu Vaccine, Renal Failure Diet (DC) Additional Instructions: Please follow up with Dr. Zepeda within one week Referrals: [facility]q, [Non-Staff] -
[2017-06-12 08:27] VITALS: BP 120/74; PULSE 75; TEMP 98.3; O2SAT 96
[2017-06-12] MEDS: Vancomycin 1gm in NS 250ml 1 GM/250 ML BAG IVPB SCH ×2 (08:43→10:30)
--- NOTE | 2017-06-12 11:58 | PN ---
DATE: SUBJECTIVE: The patient has no complaints of any chest pain. No shortness of breath. No headaches. He states that he feels well. He is able to ambulate. PHYSICAL EXAMINATION. VITAL SIGNS: Temperature is 98.2, pulse is 96, blood pressure is 129/74, respirations 18. GENERAL: The patient is lying in bed, flat, comfortable. HEENT: No oral lesion. Anicteric sclerae. Moist mucosa. NECK: No JVD, adenopathy, or thyromegaly. CARDIOVASCULAR: S1 and S2, regular. No murmurs, rubs, or gallops. LUNGS: Clear to auscultation bilaterally. No wheeze, rales, or rhonchi. ABDOMEN: Bowel sounds are positive. Soft, nontender and nondistended. EXTREMITIES: No cyanosis, clubbing or edema. LABORATORY DATA: White count 3.4, hemoglobin 9.8, creatinine 6. ASSESSMENT 1. Abdominal pain secondary to small bowel obstruction. 2. End-stage renal disease, on hemodialysis. 3. Hypertension. 4. Secondary hyperparathyroidism. 5. Dyslipidemia. 6. Left arteriovenous fistula. 7. Anxiety. 8. Diverticulosis. 9. Chronic anemia secondary to chronic kidney disease. PLAN: The patient is currently on heparin for DVT prophylaxis, on Lipitor for dyslipidemia, and Renagel for his secondary hyperparathyroidism. He is on Zofran for nausea. He is on a renal diet, tolerating. The patient is due for dialysis today. Wilmer Thomason MD
== END 2017-06-12 15:19 | disposition home or self-care (01) | DRG 388 ==
LOC: ED 21:37 → ERH 06-11 01:21 → 5RSO 06-11 03:07
PROVIDERS: ADMIT Surgery; ATTEND Surgery
PROC: 5A1D70Z Performance of Urinary Filtration, Intermittent, Less than 6 Hours Per Day (ICD-10-PCS; principal; 2017-06-12)
DX: K56.609 Unspecified intestinal obstruction, unspecified as to partial versus complete obstruction (principal); N18.6 End stage renal disease; I12.0 Hypertensive chronic kidney disease with stage 5 chronic kidney disease or end stage renal disease; N25.81 Secondary hyperparathyroidism of renal origin; D63.1 Anemia in chronic kidney disease; F41.9 Anxiety disorder, unspecified; E78.5 Hyperlipidemia, unspecified; K57.90 Diverticulosis of intestine, part unspecified, without perforation or abscess without bleeding; Z99.2 Dependence on renal dialysis

== ENCOUNTER 2017-07-27 19:04 | Emergency (ER) | payer MEDICARE, MEDICAID ==
[2017-07-27 19:14] VITALS: BMI 26.6
[2017-07-27 20:08] VITALS: RESP 18
--- NOTE | 2017-07-27 20:39 | ED PDOC ---
Arrival/HPI - General Chief Complaint: GI Problem Time Seen by Provider: 07/27/17 20:04 Historian: Patient - History of Present Illness Narrative History of Present Illness (Text): 07/27/17 20:17 Сергей Aleman is a 72 year old male, whose past medical history includes ESRD with hemodialysis on M/W/F, hypertension, diverticulitis, and anxiety, who presents to the emergency department complaining of nausea, lightheadedness, and diarrhea after dialysis today. Patient denies any fever, chills, chest pain , shortness of breath, vomiting, urinary symptoms, back pain, neck pain, headache, dizziness, or any other complaints. PMD: Dr. Thomason Time/Duration: 1-3 hours Symptom Onset: Gradual Symptom Course: Unchanged Activities at Onset: Light Context: Other (Dialysis) Past Medical History - Provider Review Nursing Documentation Reviewed: Yes - Infectious Disease Hx of Infectious Diseases: None - Tetanus Immunization Tetanus Immunization: Unknown - Cardiac Hx Cardiac Disorders: Yes Hx Hypertension: Yes - Pulmonary Hx Respiratory Disorders: No - Neurological Hx Neurological Disorder: No - HEENT Hx HEENT Disorder: No - Renal Hx Renal Disorder: Yes Hx Dialysis: Yes (MWF) Hx Renal Failure: Yes - Endocrine/Metabolic Hx Endocrine Disorders: No - Hematological/Oncological Hx Blood Disorders: Yes Hx Cancer: Yes (prostate) Hx Shingles: Yes - Integumentary Hx Dermatological Disorder: No - Musculoskeletal/Rheumatological Hx Musculoskeletal Disorders: No Hx Falls: No - Gastrointestinal Hx Gastrointestinal Disorders: Yes Hx Diverticulitis: Yes - Genitourinary/Gynecological Hx Genitourinary Disorders: Yes Hx Prostate Problems: Yes (prostate CA) - Psychiatric Hx Psychophysiologic Disorder: Yes Hx Anxiety: Yes Hx Substance Use: No - Surgical History Hx Cholecystectomy: Yes - Anesthesia Hx Anesthesia: Yes Hx Anesthesia Reactions: No Hx Malignant Hyperthermia: No Family/Social History - Physician Review Nursing Documentation Reviewed: Yes Family/Social History: No Known Family HX Smoking Status: Never Smoked Hx Alcohol Use: No Hx Substance Use: No Allergies/Home Meds Allergies/Adverse Reactions: Allergies No Known Allergies Allergy (Verified 06/10/17 21:46) Review of Systems - Physician Review All systems were reviewed & negative as marked: Yes - Review of Systems Constitutional: Night Sweats, Other (Lightheadedness) Eyes: absent: Vision Changes ENT: absent: Hearing Changes Respiratory: absent: SOB, Cough Cardiovascular: absent: Chest Pain Gastrointestinal: Diarrhea, Nausea Genitourinary Male: absent: Dysuria, Frequency Musculoskeletal: absent: Arthralgias Skin: absent: Rash, Pruritis Neurological: absent: Headache, Dizziness Endocrine: absent: Diaphoresis, Polyuria Hemo/Lymphatic: absent: Adenopathy Psychiatric: absent: Anxiety, Depression Physical Exam Vital Signs Reviewed: Yes Vital Signs Temp Pulse Resp BP Pulse Ox 07/27/17 22:02 98 H 18 132/81 99 07/27/17 19:04 98.1 F 102 H 18 136/70 99 Temperature: Afebrile Blood Pressure: Normal Pulse: Tachycardic Respiratory Rate: Normal Appearance: Positive for: Well-Appearing, Non-Toxic, Comfortable Pain Distress: None Mental Status: Positive for: Alert and Oriented X 3 - Systems Exam Head: Present: Atraumatic, Normocephalic Pupils: Present: PERRL Extroacular Muscles: Present: EOMI Conjunctiva: Present: Normal Mouth: Present: Moist Mucous Membranes Neck: Present: Normal Range of Motion Respiratory/Chest: Present: Clear to Auscultation, Good Air Exchange. No: Respiratory Distress, Accessory Muscle Use Cardiovascular: Present: Regular Rate and Rhythm, Normal S1, S2. No: Murmurs Abdomen: No: Tenderness, Distention, Peritoneal Signs Back: Present: Normal Inspection Upper Extremity: Present: Normal Inspection. No: Cyanosis, Edema Lower Extremity: Present: Normal Inspection. No: Edema Neurological: Present: GCS=15, CN II-XII Intact, Speech Normal Skin: Present: Warm, Dry, Normal Color. No: Rashes Psychiatric: Present: Alert, Oriented x 3, Normal Insight, Normal Concentration Medical Decision Making ED Course and Treatment: 07/27/17 20:39 Impression: 72 year old male complaining of nausea, lightheadedness, chills, and diarrhea after dialysis today. Plan: -- EKG -- Labs -- Zofran -- Reassess and disposition Prior Visits: Notes and results from previous visits were reviewed. Patient was last seen in the emergency department on 06/10/17 for abdominal pain. Patient was admitted to hospitalist care for further evaluation. Progress Notes: 07/27/17 22:02 EKG: Ordered, reviewed, and independently interpreted the EKG. Rate : 105 BPM Rhythm : sinus tachycardia Interpretation : No acute changes - Lab Interpretations Lab Results: 07/27/17 21:10 07/27/17 21:10 Lab Results 07/27/17 21:10: WBC 5.0 D, RBC 3.60, Hgb 10.7 L, Hct 32.4 L, MCV 90.0, MCH 29.7 , MCHC 33.0, RDW 14.0, Plt Count 100 L, MPV 10.0 07/27/17 21:10: Sodium 141, Potassium 4.2, Chloride 97 L, Carbon Dioxide 29, Anion Gap 19, BUN 34 H, Creatinine 6.3 H, Est GFR ( Amer) 11, Est GFR ( Non-Af Amer) 9, Random Glucose 108, Calcium 9.2, Total Bilirubin 1.0, AST 26, ALT 17, Alkaline Phosphatase 89, Total Protein 7.8, Albumin 4.5, Globulin 3.3, Albumin/Globulin Ratio 1.4 - Medication Orders Current Medication Orders: Discontinued Medications Ondansetron HCl (Zofran Inj) 4 mg IVP ONCE ONE Stop: 07/27/17 20:46 Last Admin: 07/27/17 21:14 Dose: 4 mg IVP Administration Document 07/27/17 21:14 EQ (Rec: 07/27/17 21:14 EQ [id number]) Charges for Administration # of IVP Administrations 1 - Scribe Statement The provider has reviewed the documentation as recorded by the Scribe Kely Pope Provider Scribe Attestation: All medical record entries made by the Scribe were at my direction and personally dictated by me. I have reviewed the chart and agree that the record accurately reflects my personal performance of the history, physical exam, medical decision making, and the department course for this patient. I have also personally directed, reviewed, and agree with the discharge instructions and disposition. Disposition/Present on Arrival - Present on Arrival Any Indicators Present on Arrival: No History of DVT/PE: No History of Uncontrolled Diabetes: No Urinary Catheter: No History of Decub. Ulcer: No History Surgical Site Infection Following: None - Disposition Have Diagnosis and Disposition been Completed?: Yes Diagnosis: ESRD (end stage renal disease) on dialysis, Gastroenteritis Disposition: HOME/ ROUTINE Disposition Time: 00:17 Patient Plan: Discharge Condition: STABLE Discharge Instructions (ExitCare): End Stage Kidney Disease (DC), Gastroenteritis (ED) Additional Instructions: Drink small amounts of liquids at a time/advance diet slowly/meds as prescribed/ follow up with your doctor this week/any worsening symptoms return to the emergency room Referrals: Maynor Almanza, [Primary Care Provider] - Follow up with primary Forms: [employer] (Luxembourgish)
[2017-07-27 21:24] LABS: HEMOGLOBIN 10.7 g/dL (14.0-18.0); MEAN CORPUSCULAR HEMOGLOBIN 29.7 pg (25.0-35.0); RBC 3.6 10^6/uL (3.5-6.1)
[2017-07-27 21:41] LABS: ALB/GLOB RATIO 1.4 (1.1-1.8); ALBUMIN 4.5 g/dL (3.0-4.8); CALCIUM 9.2 mg/dL (8.4-10.5)
[2017-07-28 11:16] VITALS: BP 109/66; PULSE 88; TEMP 98; O2SAT 98
--- NOTE | 2017-07-28 11:17 | CARD ---
APPROVED REPORT EKG Measurement Heart [id number] <Conclusion> Sinus tachycardia Otherwise normal ECG
== END 2017-07-28 11:18 | disposition home or self-care (01) ==
LOC: ED 19:04
DX: I12.0 Hypertensive chronic kidney disease with stage 5 chronic kidney disease or end stage renal disease (principal); N18.6 End stage renal disease; Z99.2 Dependence on renal dialysis; K52.9 Noninfective gastroenteritis and colitis, unspecified
CPT/HCPCS: 80053; 85027; 93005; 96374; 99285; J2405

== ENCOUNTER 2017-07-31 10:45 | Emergency (ER) | payer MEDICARE, MEDICAID ==
--- NOTE | 2017-07-31 11:21 | ED PDOC ---
Arrival/HPI - General Chief Complaint: Dizziness/Lightheaded Time Seen by Provider: 07/31/17 11:11 Historian: Patient - History of Present Illness Narrative History of Present Illness (Text): 07/31/17 11:18 pt p/w + dizziness/lightheadedness/weakness post dialysis, pt states this is common for him, post dialysis, he was here in the ED 2 days ago during his last dialysis; pt states he also felt sob; pt states no LOC, no fever/chills/sweats, no cp/palpitations, no abd pain, no n/v, no numbness/tingling, no slurr speech, no vision changes, no neck pain, no urinary/bowel changes, no fall/trauma/sick contact; pt states because he had to drive at least an hour to go home, he wants to be evaluated in the ED but DOES NOT WANT ANY BLOOD TESTS; pt states he just need a meal and to rest and he will leave; pt states no other complaints; pt is here for further eval pt states he [place] friends [place] [facility] [place] PCP: DR Amaya?, DR Thomason PCP down in [place] - Dr Knutson PMHx: ESRD (M/W/F), Diverticulitis pt denied taking any medications currently Time/Duration: Prior to Arrival Symptom Onset: Sudden Symptom Course: Unchanged Activities at Onset: Rest Context: Other (at dialysis unit) Past Medical History - Provider Review Nursing Documentation Reviewed: Yes - Travel History Have you recently traveled outside [place] w/in the past 3 mons?: No - Past History Past History: No Previous - Infectious Disease Hx of Infectious Diseases: None - Tetanus Immunization Tetanus Immunization: Unknown - Reproductive Currently Lactating: No - Cardiac Hx Cardiac Disorders: Yes Hx Hypertension: Yes - Pulmonary Hx Respiratory Disorders: No - Neurological Hx Neurological Disorder: No - HEENT Hx HEENT Disorder: No - Renal Hx Renal Disorder: Yes Hx Dialysis: Yes (MWF) Hx Renal Failure: Yes - Endocrine/Metabolic Hx Endocrine Disorders: No - Hematological/Oncological Hx Blood Disorders: Yes Hx Cancer: Yes (prostate) Hx Shingles: Yes - Integumentary Hx Dermatological Disorder: No - Musculoskeletal/Rheumatological Hx Musculoskeletal Disorders: No Hx Falls: No - Gastrointestinal Hx Gastrointestinal Disorders: Yes Hx Diverticulitis: Yes - Genitourinary/Gynecological Hx Genitourinary Disorders: Yes Hx Prostate Problems: Yes (prostate CA) - Psychiatric Hx Psychophysiologic Disorder: Yes Hx Anxiety: Yes Hx Substance Use: No - Surgical History Hx Cholecystectomy: Yes - Anesthesia Hx Anesthesia: Yes Hx Anesthesia Reactions: No Hx Malignant Hyperthermia: No Family/Social History - Physician Review Nursing Documentation Reviewed: Yes Family/Social History: No Known Family HX Smoking Status: Never Smoked Hx Alcohol Use: No Hx Substance Use: No Hx Substance Use Treatment: No Allergies/Home Meds Allergies/Adverse Reactions: Allergies No Known Allergies Allergy (Verified 06/10/17 21:46) Review of Systems - Review of Systems Constitutional: Fatigue Eyes: Normal ENT: Normal Respiratory: SOB Cardiovascular: absent: Chest Pain, Palpitations Gastrointestinal: absent: Abdominal Pain, Nausea, Vomiting Genitourinary Male: Normal Musculoskeletal: Normal Skin: Normal Neurological: Dizziness. absent: Headache Endocrine: Normal Hemo/Lymphatic: Normal Psychiatric: Normal Physical Exam Vital Signs Reviewed: Yes Vital Signs Temp Pulse Resp BP Pulse Ox 07/31/17 13:00 65 18 126/69 98 07/31/17 11:25 98.6 F 68 18 128/71 98 07/31/17 11:15 98.6 F 72 16 128/84 98 Temperature: Afebrile Blood Pressure: Normal Pulse: Regular Respiratory Rate: Normal Appearance: Positive for: Well-Appearing, Non-Toxic, Other (resting in bed, alert/awake, slight flat affect, NAD, cooperative, GCS = 15; oriented x 3) Pain Distress: None Mental Status: Positive for: Alert and Oriented X 3 - Systems Exam Head: Present: Atraumatic, Normocephalic Pupils: Present: PERRL, Other (no nystagmus, no photophobia, sclera anicteric, visual field intact b/l) Extroacular Muscles: Present: EOMI Conjunctiva: Present: Normal Ears: Present: Normal Mouth: Present: Dry, Other (fair dentitions, no drooling/stridor, no exudate/ lesions, no dysphonia; uvula/tongue are midline) Pharnyx: Present: Normal Nose (External): Present: Atraumatic Nose (Internal): Present: Normal Inspection Neck: Present: Normal Range of Motion, Trachea Midline, Other (no nuchal rigidity, intact ROM, no step off, no midline tenderness). No: Meningeal Signs , MIDLINE TENDERNESS, Paraspinal Tenderness Respiratory/Chest: Present: Clear to Auscultation, Good Air Exchange, Other ( CTA b/l, no w/R/R, no tachypenia, no accessory muscle use noted) Cardiovascular: Present: Regular Rate and Rhythm, Normal S1, S2. No: Murmurs Abdomen: Present: Normal Bowel Sounds, Other (well nourished male, no focal tenderness, no masses/rebound/guarding/rigidity, no corbett's sign, no mcburney' s point tenderness). No: Tenderness, Distention Back: Present: Normal Inspection, Other (no midline tenderness). No: CVA Tenderness, Midline Tenderness, Paraspinal Tenderness Upper Extremity: Present: Normal Inspection, Normal ROM, NORMAL PULSES, Neurovascularly Intact. No: Edema Lower Extremity: Present: Normal Inspection, NORMAL PULSES, Normal ROM, Neurovascularly Intact, Other (intact ROM, strength 5/5 grossly intact in all limbs, neurovasc intact b/l, no pitting edema noted b/l). No: Edema Neurological: Present: GCS=15, CN II-XII Intact, Speech Normal, Other (no slurr speech, no facial asymmetries, NIH stroke scale ~ 0) Skin: Present: Warm, Dry, Normal Color, Other (cap refill ~ 1 sec, no ulcerations, no petechiae, no rashes, + dry skin) Psychiatric: Present: Alert, Oriented x 3 Medical Decision Making ED Course and Treatment: 07/31/17 11:15 Impression: weakness/dizziness, sob post dialysis i have consider all the differential diagnosis regarding pt's chief medical complaints/clinical findings, including but are not limited to: weakness/ dizziness, sob post dialysis A/P: weakness/lightheadedness, sob - labs - ekg - iv - supportive care - observe/reevaluation 1120 i spoke to the patient at length pt refused lab work and any other diagnostics, except he is fine with an EKG pt would like to have a meal and he wants to rest PT IS REFUSING DIAGNOSTIC tests 07/31/17 11:30 I spoke to dialysis unit, verified patient's arrival to their unit and received the full complement of the dialysis; pt finished his dialysis without any issues ; nursing staff states patient wanted to come to the ED because he felt he was weak, dialysis nursing staff states pt's vital signs were stable and did not show any abnormalities; pt's FS was slightly low, but pt did not eat and offered pt some crackers; pt still states he wanted to be seen in the ED; dialysis nurse states patient maybe homeless I spoke to patient and asked if he is homeless, pt states no, he currently lives down in [place] with his extended family [id number] school attendance secretary in the ED ([employer]) attempted to contact Dr Knutson's office down in [facility], but the oncall physician refused to speak to me, the psychiatric secretary down at Dr Knutson's office did state patient was last seen < 1 week ago but is not Dr Knutson's patient and states he primarily has a doctor here in [place] 07/31/17 12:44 I spoke to Arthur, emergency department cushion assembler social studies department chair, who is aware of patient's current status. I expressed my concern for the patient regarding pt's prolonged travel to receive dialysis, Arthur concurred; Arthur states that given that patient is cognizant/awake/alert/oriented, it is within his preference to chose which dialysis unit he receives his dialysis; Arthur recommends reaching out to pt' s nephrologists and seek further information; at the moment, Arthur is unable to provide patient with any helpful resources. 07/31/17 12:[address] Lopez, who explains that patient actually lives in [place] but has a house in [place] as well. There has been a recent of patient's spouse a few months ago, to dr Lopez, has noted patient to have somewhat decreased cognitive decline over the last two or three weeks. Patient additionally has some social issues that arent made known to Dr Lopez, per his sucipicions; pt has a amusement park worker as well on his case, Katherine; given todays complaints, without any medical findings, pt likely can be released home for outpt f/u. 07/31/17 13:40 pt is awake and alert currently pt wants to leave the ED now pt is made aware of his medical results pt is encouraged fluid hydration pt will f/u as directed pt will be discharged home Re-evaluation Time: 11:55 Reassessment Condition: Unchanged - Lab Interpretations Narrative Lab Interpretation (Text): 07/31/17 11:55 PT REFUSED Pt last lab 2 days ago indicated ESRD - EKG Interpretation EKG Interpretation (Text): 07/31/17 11:45 NSR at 75 bpm, normal axis, no ectopy, qs in leads III, no st-t changes, ABNL EKG; unchanged compare with old ekg 07/2017 Interpreted by ED Physician: Yes Type: 12 lead EKG Comparison: Similar to previous EKG Disposition/Present on Arrival - Present on Arrival Any Indicators Present on Arrival: No History of DVT/PE: No History of Uncontrolled Diabetes: No Urinary Catheter: No History of Decub. Ulcer: No History Surgical Site Infection Following: None - Disposition Have Diagnosis and Disposition been Completed?: Yes Diagnosis: Lightheadedness, General medical exam, ESRD on dialysis Disposition: HOME/ ROUTINE Disposition Time: 13:39 Patient Plan: Discharge Condition: STABLE Discharge Instructions (ExitCare): Dizziness, Nonvertigo, (DC), End Stage Kidney Disease, Dialysis and Diet Print Language: BURKINAN Additional Instructions: Make sure to see your doctor in 1-2 days DRINK PLENTY OF FLUIDS take your medications as prescribed RETURN TO ED IF worse pain, cant breath, persistent vomiting, high fever >101- 102 for hours, altered behavior, slurr speech, facial changes, focal weakness ( arm/leg or both), unable to urinate, heavy/persistent bleeding, passing out, chest pain, or other medical emergencies Referrals: Wilmer Thomason MD [Staff Provider] - Follow up with primary Forms: [employer] (Togolese)
[2017-07-31 11:22] VITALS: TEMP 98.6; O2SAT 98; BMI 31.1
[2017-07-31 11:28] VITALS: RESP 18
[2017-07-31 13:07] VITALS: BP 126/69; PULSE 65
--- NOTE | 2017-07-31 18:40 | CARD ---
APPROVED REPORT EKG Measurement Heart [id number] <Conclusion> Normal sinus rhythm
== END 2017-07-31 13:05 | disposition home or self-care (01) ==
LOC: ED 10:45
DX: Z00.00 Encounter for general adult medical examination without abnormal findings (principal); R42 Dizziness and giddiness; N18.6 End stage renal disease; I12.0 Hypertensive chronic kidney disease with stage 5 chronic kidney disease or end stage renal disease; Z99.2 Dependence on renal dialysis; Z85.46 Personal history of malignant neoplasm of prostate